=== PATIENT | female | born 1945 | race African-American/Black ===

== ENCOUNTER 2016-11-20 22:04 | Inpatient (IN) | payer MEDICARE, OTHER ==
[~2016-11-20] VITALS: Ht 162.6 cm; Wt 72.5 kg
[~2016-11-20 22:04] MED LIST: AMLO5TAB22 PO; COEN1CAP4; COZA100T PO; D31000CA PO; GLUCTAB OR; LANTINJ SQ; LISI-366 PO; LORTA5 PO; METO50TA PO; NOVOINJ3 SQ; NOVOLOGP2 SQ; OMEG100037; OMNI1SUS EACH EYE; ROSU10 PO; TRAV0.00 BOTH EYES; TRUS2SOL EACH EYE; [UNRECOGNIZED DRUG - OTHER] LEFT EYE
[2016-11-20 22:14] VITALS: BP 164/101; PULSE 101; RESP 18; TEMP 98.4; O2SAT 93
[2016-11-20] MEDS ORDERED: METF1000 PO (22:39)
[2016-11-20] MEDS ORDERED: LANTUS2P SQ (22:39)
[2016-11-20] MEDS ORDERED: AMLO5TAB2 PO (22:39)
[2016-11-20] MEDS ORDERED: ATOR20TA15 PO (22:39)
[2016-11-20] MEDS ORDERED: COQ1100C PO (22:39)
[2016-11-20] MEDS ORDERED: FISH500C PO (22:39)
[2016-11-20] MEDS ORDERED: FURO20TA PO (22:39)
[2016-11-20] MEDS ORDERED: LOSA100T PO (22:39)
[2016-11-20] MEDS ORDERED: METO50TA PO (22:39)
[2016-11-20] MEDS ORDERED: NOVOLOGP2 SQ (22:39)
[2016-11-20 22:48] VITALS: O2SAT 91
--- NOTE | 2016-11-20 22:58 | PD ---
HPI Chief Complaint: Respiratory Symptoms Time Seen by Provider: 22:40 Travel History International Travel<30 days: No Contact w/Intl Traveler<30days: No Traveled to known affect area: No History of Present Illness HPI Patient is a 71-year-old female with history of hypertension, diabetes, hyperlipidemia, COPD, colon cancer, presents to emergency room with complaints of 2 days of cough and congestion. Patient reports that for the past 2 days, she has had a productive white cough with increased wheezing. Patient reports that she is a one pack per day smoker, she does not use home O2. Patient reports that her cough and wheezing have progressed over the past 2 days, patient here for evaluation of this. Patient denies any fevers or chills, denies chest pain at this time. Denies any recent travels. NO sick contacts PFSH Past Medical History Arthritis: Yes (L HIP, RECENT) Asthma: No Autoimmune Disease: No Anxiety: No Depression: No Heart Rhythm Problems: No Cancer: No High Cholesterol: Yes Chemotherapy: No Chest Pain: No Congestive Heart Failure: No COPD: No Diabetes: Yes (2) Patient Takes Glucophage: Yes Diminished Hearing: No Gastrointestinal Disorders: Yes (-2012 PANCREATITIS; ADRENAL MASS) GERD: Yes Glaucoma: Yes Genitourinary: Yes (-2012 RENAL INSUFFICIENCY/// PT UNAWARE 01/20/15) Hiatal Hernia: No Hypertension: Yes Immune Disorder: No Musculoskeletal: Yes Neurologic: Yes Psychiatric: No Reproductive: No Respiratory: No Immunizations Current: Yes Migraines: Yes (SINUSHEADACES) Radiation Therapy: No Renal Failure: No Seizures: No Sickle Cell Disease: No Sleep Apnea: No Thyroid Disease: No Ulcer: No Tetanus Vaccination: < 5 Years Influenza Vaccination: Yes PNEUMOCCOCAL Vaccine (Year): 1 ?: Not Menopausal: Yes Past Surgical History Abdominal Surgery: Yes AICD: No Arteriovenous Shunt: No Cardiac Surgery: No Ear Surgery: No Endocrine Surgery: No Eye Surgery: Yes (CATARACT LEFT EYE) Genitourinary Surgery: No Gynecologic Surgery: Yes (HYSTERECTOMY PARTIAL ) Hysterectomy: Yes Insulin Pump: No Joint Replacement: No Oral Surgery: Yes (T&A CHILD) Pacemaker: No Thoracic Surgery: No Tonsillectomy: Yes Other Surgery: Yes Social History Alcohol Use: Yes Tobacco Use: Yes (1 PPD) Substance Use: No Allergies-Medications (Allergen,Severity, Reaction): Coded Allergies: Penicillin (Verified Allergy, Severe, SWELLING, 11/20/16) Reported Meds & Prescriptions Reported Meds & Active Scripts Active Reported Lantus Inj (Insulin Glargine) 1,000 Unit/10 Ml Vial 14 Units SQ HS Novolog Inj (Insulin Aspart) 1,000 Unit/10 Ml Vial 10 Units SQ BID Fish Oil ([place]-3 Fatty Acids) 500 Mg Cap 300 Mg PO DAILY Coq10 (Coenzyme Q10 (Ubidecarenone)) 100 Mg Cap 100 Mg PO DAILY Furosemide 20 Mg Tab 20 Mg PO DAILY Atorvastatin (Atorvastatin Calcium) 20 Mg Tab 20 Mg PO HS Amlodipine (Amlodipine Besylate) 5 Mg Tab 5 Mg PO DAILY Metoprolol Tartrate 50 Mg Tab 50 Mg PO DAILY Losartan (Losartan Potassium) 100 Mg Tab 100 Mg PO DAILY Metformin (Metformin HCl) 1,000 Mg Tab 1,000 Mg PO BIDPC With meals Review of Systems General / Constitutional: No: Fever Eyes: No: Visual changes HENT: No: Headaches Cardiovascular: No: Chest Pain or Discomfort Respiratory: Positive: Cough, Shortness of Breath Gastrointestinal: No: Abdominal Pain Genitourinary: No: Dysuria Musculoskeletal: No: Pain Skin: No Rash Neurologic: No: Weakness Psychiatric: No: Depression Endocrine: No: Polydipsia Hematologic/Lymphatic: No: Easy Bruising Physical Exam Narrative GENERAL: moderate distress SKIN: Focused skin assessment warm/dry. HEAD: Atraumatic. Normocephalic. EYES: Pupils equal and round. No scleral icterus. No injection or drainage. ENT: No nasal bleeding or discharge. Mucous membranes pink and moist. NECK: Trachea midline. No JVD. CARDIOVASCULAR: Tachycardic. No murmur appreciated. RESPIRATORY: No accessory muscle use. Diffuse wheezing throughout bilateral lungs, rhonchi to lower lung bases GASTROINTESTINAL: Abdomen soft, non-tender, nondistended. Hepatic and splenic margins not palpable. MUSCULOSKELETAL: No obvious deformities. No clubbing. No cyanosis. No edema. NEUROLOGICAL: Awake and alert. No obvious cranial nerve deficits. Motor grossly within normal limits. Normal speech. PSYCHIATRIC: Appropriate mood and affect; insight and judgment normal. Data Data Last Documented VS Vital Signs Date Time Temp Pulse Resp B/P Pulse Ox O2 Delivery O2 Flow Rate FiO2 11/21/16 01:50 92 20 144/82 93 11/20/16 23:44 Venturi Mask 50 11/20/16 23:40 6.00 11/20/16 22:14 98.4 Orders Complete Blood Count With Diff (11/20/16 22:40) Basic Metabolic Panel (Bmp) (11/20/16 22:40) Chest, Pa & Lat (11/20/16 22:40) Iv Access Insert/Monitor (11/20/16 22:40) Ecg Monitoring (11/20/16 22:40) Oxygen Administration (11/20/16 22:40) Oximetry (11/20/16 22:40) Electrocardiogram (11/20/16 22:40) Influenzae A/B Antigen (11/20/16 22:40) Arterial Blood Gas (Abg) (11/20/16 ) Methylprednisolone So Succ Inj (Solumedr (11/20/16 23:00) Albuterol-Ipratropium Neb (Duoneb Neb) (11/20/16 23:00) Sodium Chlorid 0.9% 500 Ml Inj (Ns 500 M (11/20/16 23:00) B-Type Natriuretic Peptide (11/20/16 23:18) Prothrombin Time / Inr (Pt) (11/20/16 23:18) Act Partial Throm Time (Ptt) (11/20/16 23:18) Blood Culture (11/20/16 23:22) Lactic Acid Sepsis Protocol (11/20/16 23:22) Aztreonam Inj (Azactam Inj) (11/20/16 23:33) Azithromycin Inj (Zithromax Inj) (11/20/16 23:33) Ckmb (Isoenzyme) Profile (11/20/16 22:50) Troponin I (11/20/16 22:50) Cta Thor Abd Aorta W Iv C W3d (11/21/16 00:01) Iohexol 350 Inj (Omnipaque 350 Inj) (11/21/16 01:10) Albuterol Neb (Albuterol Neb) (11/21/16 01:30) Labs Laboratory Tests Test 11/20/16 11/20/16 11/20/16 22:50 23:04 23:30 White Blood Count 15.6 TH/MM3 Red Blood Count 4.70 MIL/MM3 Hemoglobin 12.0 GM/DL Hematocrit 37.5 % Mean Corpuscular Volume 79.9 FL Mean Corpuscular Hemoglobin 25.6 PG Mean Corpuscular Hemoglobin 32.0 % Concent Red Cell Distribution Width 18.4 % Platelet Count 219 TH/MM3 Mean Platelet Volume 9.4 FL Neutrophils (%) (Auto) % Lymphocytes (%) (Auto) % Monocytes (%) (Auto) % Eosinophils (%) (Auto) % Basophils (%) (Auto) % Neutrophils # (Auto) TH/MM3 Lymphocytes # (Auto) TH/MM3 Monocytes # (Auto) TH/MM3 Eosinophils # (Auto) TH/MM3 Basophils # (Auto) TH/MM3 CBC Comment AUTO DIFF Differential Total Cells 100 Counted Neutrophils % (Manual) 84 % Lymphocytes % 9 % Monocytes % 6 % Eosinophils % 1 % Neutrophils # (Manual) 13.1 TH/MM3 Differential Comment FINAL DIFF MANUAL Platelet Estimate NORMAL Platelet Morphology Comment CLUMPED Prothrombin Time 11.1 SEC Prothromb Time International 1.0 RATIO Ratio Activated Partial 27.5 SEC Thromboplast Time B-Type Natriuretic Peptide 571 PG/ML Blood Gas Puncture Site RT RADIAL Blood Gas Patient Temperature 98.6 Blood Gas HCO3 24 mmol/L Blood Gas Base Excess -1.3 mmol/L Blood Gas Oxygen Saturation 75 % Arterial Blood pH 7.34 Arterial Blood Partial 45 mmHG Pressure CO2 Arterial Blood Partial 48 mmHG Pressure O2 Arterial Blood Oxygen Content 13.2 Vol % Arterial Blood 5.0 % Carboxyhemoglobin Arterial Blood Methemoglobin 1.4 % Blood Gas Hemoglobin 12.5 G/DL Blood Gas Inspired Oxygen 21 % Sodium Level 143 MEQ/L Potassium Level 4.0 MEQ/L Chloride Level 107 MEQ/L Carbon Dioxide Level 26.2 MEQ/L Anion Gap 10 MEQ/L Blood Urea Nitrogen 28 MG/DL Creatinine 1.20 MG/DL Estimat Glomerular Filtration 53 ML/MIN Rate Random Glucose 77 MG/DL Lactic Acid Level 1.6 mmol/L Calcium Level 9.0 MG/DL Total Creatine Kinase 98 U/L Troponin I 0.16 NG/ML MDM Medical Decision Making Medical Screen Exam Complete: Yes Emergency Medical Condition: Yes Interpretation(s) NSR at 80bpm, qt/qtc: 412/447, no acute st or t wave changes Vital Signs Date Time Temp Pulse Resp B/P Pulse Ox O2 Delivery O2 Flow Rate FiO2 11/20/16 22:48 91 Room Air 11/20/16 22:48 91 11/20/16 22:26 18 91 Room Air 11/20/16 22:14 98.4 101 18 164/101 93 Laboratory Tests Test 11/20/16 11/20/16 11/20/16 22:50 23:04 23:30 White Blood Count 15.6 TH/MM3 (4.0-11.0) Red Blood Count 4.70 MIL/MM3 (4.00-5.30) Hemoglobin 12.0 GM/DL (11.6-15.3) Hematocrit 37.5 % (35.0-46.0) Mean Corpuscular Volume 79.9 FL (80.0-100.0) Mean Corpuscular Hemoglobin 25.6 PG (27.0-34.0) Mean Corpuscular Hemoglobin 32.0 % Concent (32.0-36.0) Red Cell Distribution Width 18.4 % (11.6-17.2) Platelet Count 219 TH/MM3 (150-450) Mean Platelet Volume 9.4 FL (7.0-11.0) Neutrophils (%) (Auto) % (16.0-70.0) Lymphocytes (%) (Auto) % (9.0-44.0) Monocytes (%) (Auto) % (0.0-8.0) Eosinophils (%) (Auto) % (0.0-4.0) Basophils (%) (Auto) % (0.0-2.0) Neutrophils # (Auto) TH/MM3 (1.8-7.7) Lymphocytes # (Auto) TH/MM3 (1.0-4.8) Monocytes # (Auto) TH/MM3 (0-0.9) Eosinophils # (Auto) TH/MM3 (0-0.4) Basophils # (Auto) TH/MM3 (0-0.2) CBC Comment AUTO DIFF Differential Total Cells 100 Counted Neutrophils % (Manual) 84 % (16-70) Lymphocytes % 9 % (9-44) Monocytes % 6 % (0-8) Eosinophils % 1 % (0-4) Neutrophils # (Manual) 13.1 TH/MM3 (1.8-7.7) Differential Comment FINAL DIFF MANUAL Platelet Estimate NORMAL (NORMAL) Platelet Morphology Comment CLUMPED (NORMAL) Prothrombin Time 11.1 SEC (9.8-11.6) Prothromb Time International 1.0 RATIO Ratio Activated Partial 27.5 SEC Thromboplast Time (24.3-30.1) Blood Gas Puncture Site RT RADIAL Blood Gas Patient Temperature 98.6 Blood Gas HCO3 24 mmol/L (22-26) Blood Gas Base Excess -1.3 mmol/L (-2-2) Blood Gas Oxygen Saturation 75 % (90-100) Arterial Blood pH 7.34 (7.380-7.420) Arterial Blood Partial 45 mmHG (38-42) Pressure CO2 Arterial Blood Partial 48 mmHG Pressure O2 (61-120) Arterial Blood Oxygen Content 13.2 Vol % (12.0-20.0) Arterial Blood 5.0 % (0-4) Carboxyhemoglobin Arterial Blood Methemoglobin 1.4 % (0-2) Blood Gas Hemoglobin 12.5 G/DL (12.0-16.0) Blood Gas Inspired Oxygen 21 % Sodium Level 143 MEQ/L (136-145) Potassium Level 4.0 MEQ/L (3.5-5.1) Chloride Level 107 MEQ/L (98-107) Carbon Dioxide Level 26.2 MEQ/L (21.0-32.0) Anion Gap 10 MEQ/L (5-15) Blood Urea Nitrogen 28 MG/DL (7-18) Creatinine 1.20 MG/DL (0.50-1.00) Estimat Glomerular Filtration 53 ML/MIN (>89) Rate Random Glucose 77 MG/DL (74-106) Lactic Acid Level 1.6 mmol/L (0.4-2.0) Calcium Level 9.0 MG/DL (8.5-10.1) Total Creatine Kinase 98 U/L (26-192) Troponin I 0.16 NG/ML (0.02-0.05) Microbiology Date/Time Procedure Status Source Growth 11/20/16 22:50 Influenza Types A,B Antigen ([facility]) - Final Complete Nasal Washing NEGATIVE FOR FLU A AND B ANTIGEN.... 11/20/16 23:35 Aerobic Blood Culture Received Blood Peripheral Pending 11/20/16 23:35 Anaerobic Blood Culture Received Blood Peripheral Pending 11/20/16 23:38 Aerobic Blood Culture Received Blood Peripheral Pending 11/20/16 23:38 Anaerobic Blood Culture Received Blood Peripheral Pending Last Impressions Chest X-Ray 11/20/16 6010 Signed Impressions: Service Date/Time: Sunday, November 20, 2016 22:48 - CONCLUSION: 1. Prominent pulmonary arteries consistent with pulmonary arterial hypertension. 2. Abnormal density right upper lobe seen best on lateral view. 3. Prominent convexity along the ascending aorta, aneurysmal dilatation of the ascending aorta cannot be excluded. Contrasted CT chest recommended. David Valdez MD Differential Diagnosis COPD exacerbation, pneumonia, influenza, pneumothorax, viral syndrome Narrative Course Patient is a 71-year-old female who presents to emergency room with complaints of shortness of breath, cough and congestion for the past 2 days. Patient reports that she is a smoker, she does not use home O2, reports that for the past 2 days, she has been unable to catch her breath. On evaluation, patient is hypoxic with a pulse ox of 91% on room air. She does not use oxygen at home , she is coughing with wheezing as well as rhonchi at her lung bases. X-ray of chest ordered, labs ordered as well as influenza swab. Plan to give patient IV Solu-Medrol as well as nebulizer treatments to help open her airways up. We'll monitor patient on continuous pulse oximeter as well as academic records specialist. wbc: 15.6 Hemoglobin 12 Hematocrit 37.5 Platelets 219 ABG: PaO2 48 Oxygen sat 75% on room air PCO2 [address] patient on 50% Ventimask. There is concern for possible PE, x-ray of the chest shows that there is a prominent convexity along the ascending aorta, aneurysmal dilation of the ascending aorta cannot be excluded, radiologist recommends CT of the chest. This was reviewed with patient in detail, CT chest ordered. Last Impressions Chest X-Ray 11/20/16 2240 Signed Impressions: Service Date/Time: Sunday, November 20, 2016 22:48 - CONCLUSION: 1. Prominent pulmonary arteries consistent with pulmonary arterial hypertension. 2. Abnormal density right upper lobe seen best on lateral view. 3. Prominent convexity along the ascending aorta, aneurysmal dilatation of the ascending aorta cannot be excluded. Contrasted CT chest recommended. David Valdez MD case reviewed with dr short who accepts pt to service Critical Care Narrative Aggregate critical care time was 45 minutes. Time to perform other separately billable procedures was not included in the critical care time. My time did not include minutes spent treating any other patients simultaneously or on activities that did not directly contribute to the patient's treatment. The services I provided to this patient were to treat and/or prevent clinically significant deterioration that could result in: , decompensation, deterioration I provided critical care services requiring my management, as noted below: Chart data review, documentation time, medication orders and management, vital sign assessments/reviewing monitor data, ordering and reviewing lab tests, ordering and interpreting/reviewing x-rays and diagnostic studies, care of the patient and discussion of the patient with the admitting physicians. Diagnosis Primary Impression: Hypoxia Additional Impressions: Sepsis Qualified Code: A41.9 - Sepsis, due to unspecified organism Pneumonia Qualified Code: J18.9 - Pneumonia due to infectious organism, unspecified laterality, unspecified part of lung NSTEMI (non-ST elevated myocardial infarction) Admitting Information Admitting Physician Requests: Admit Orin Colorado DO Nov 20, 2016 22:58
[2016-11-20] MEDS ORDERED: SODIUM CHLORID 0.9% 500 ML INJ 500 ML IV ONE (23:00)
[2016-11-20] MEDS: RESP: ALBUTEROL 2.5 MG/IPRATROPIUM 0.5 MG NEB (SCH) INH ×2 (23:00→23:01)
[2016-11-20] MEDS ORDERED: methylPREDNISolone SOD SUCC 125 MG/2 ML VIAL IVP ONE (23:00)
[2016-11-20 23:04] LABS: HEMATOCRIT 37.5 % (35.0-46.0); MEAN CELL VOLUME 79.9 FL (80.0-100.0); MEAN CORPUSCULAR HEMOGLOBIN 25.6 PG (27.0-34.0); PLATELET COUNT 219 TH/MM3 (150-450); RED CELL DISTRIBUTION WIDTH 18.4 % (11.6-17.2); WHITE BLOOD COUNT 15.6 TH/MM3 (4.0-11.0)
[2016-11-20 23:11] LABS: HEMO FLAGS AUTO DIFF
[2016-11-20 23:14] LABS: BLOOD GAS BASE EXCESS -1.3 mmol/L (-2-2); BLOOD GAS HCO3 24 mmol/L (22-26); BLOOD GAS METHEMOGLOBIN 1.4 % (0-2); BLOOD GAS O2 HGB SATURATION 75 % (90-100); BLOOD GAS OXYGEN CONTENT 13.2 Vol % (12.0-20.0); BLOOD GAS PCO2 45 mmHG (38-42); BLOOD GAS PO2 48 mmHG (61-120); BLOOD GAS TOTAL HGB 12.5 G/DL (12.0-16.0); TEMP CORR TO 98.6
[2016-11-20 23:15] LABS: CRITICAL VALUE YES; DRAW SITE RT RADIAL; FIO2 21 %; NUMBER OF ARTERIAL PUNCTURES 1; STAT YES; ULNAR PULSE Y
--- NOTE | 2016-11-20 23:27 | RADHPO ---
EXAM DATE/TIME: 11/20/2016 22:48 [facility] COMPARISON: No previous studies available for comparison. INDICATIONS : Short of breath. MEDICAL HISTORY : Diabetes mellitus type II. SURGICAL HISTORY : None. ENCOUNTER: Initial ACUITY: 1 day PAIN SCORE: 0/10 LOCATION: Bilateral chest FINDINGS: PA and lateral views of the chest demonstrate prominence of the pulmonary arteries consistent with pu lmonary care hypertension. There is some prominent convexity along the ascending aorta. CT chest may be warranted. There also appears to be density in the right upper lobe best seen on lateral view. The cardiomediastinal contours are unremarkable. Osseous structures are intact. CONCLUSION: 1. Prominent pulmonary arteries consistent with pulmonary arterial hypertension. 2. Abnormal density right upper lobe seen best on lateral view. 3. Prominent convexity along the ascending aorta, aneurysmal dilatation of the ascending aorta cannot be excluded. Contrasted CT chest recommended. David Valdez MD on November 20, 2016 at 23:22 Board Certified Radiologist. This report was verified electronically.
[2016-11-20] MEDS ORDERED: AZITHROMYCIN INJ 500 MG in SODIUM CHLOR 0.9% 250 ML INJ 250 ML IV STA (23:33)
[2016-11-20] MEDS ORDERED: AZTREONAM INJ 2,000 MG in SODIUM CHLORIDE 0.9% INJ 100 ML IV STA (23:33)
[2016-11-20 23:34] LABS: EOSINOPHILS 1 % (0-4); NEUTROPHIL # MANUAL DIFF 13.1 TH/MM3 (1.8-7.7); POLYS (SEG NEUTROPHILS) 84 % (16-70); WBC DIFF SAMPLE 100
[2016-11-20 23:36] LABS: PLATELET ESTIMATE SMEAR NORMAL (NORMAL); PLATELET MORPHOLOGY CLUMPED (NORMAL); SCAN/DIFF FINAL DIFF MANUAL
[2016-11-20 23:44] VITALS: PULSE 84; RESP 20; O2SAT 96
[2016-11-20 23:54] LABS: APTT (PATIENT) 27.5 SEC (24.3-30.1); PROTHROMBIN TIME - PATIENT 11.1 SEC (9.8-11.6)
[2016-11-20 23:57] LABS: BICARBONATE 26.2 MEQ/L (21.0-32.0)
[2016-11-21] VITALS (15 sets, daily range): BP systolic 122–183; BP diastolic 75–96; PULSE 69–108; RESP 15–20; TEMP 96–99; O2SAT 92–100
[2016-11-21] MEDS ORDERED: IOHEXOL 350 MG/ML 10 ML VIAL (for RAD DIAG) IV ONE (01:10)
[2016-11-21] MEDS ORDERED: RESP: ALBUTEROL 2.5 MG/3 ML NEB (SCH) INH ONE (01:30)
--- NOTE | 2016-11-21 01:52 | RADHPO ---
EXAM DATE/TIME: 11/21/2016 00:24 [facility] COMPARISON: CHEST PA & LAT, November 20, 2016, 22:48. INDICATIONS : Evaluate for dissection. Prominent convexity along the ascending aorta, followup abnormal chest radio graph. IV CONTRAST: 100 cc Omnipaque 350 (iohexol) IV RADIATION DOSE: 12.57 CTDIvol (mGy) MEDICAL HISTORY : Renal insufficiency. Pancreatitis. Gastroesophageal reflux disease.Hypertension. Adrenal mass. Diabet es. SURGICAL HISTORY : Hysterectomy. ENCOUNTER: Initial ACUITY: 2 days PAIN SCALE: 3/10 LOCATION: chest TECHNIQUE: Volumetric scanning was performed using a multi-row detector CT scanner. The data was post processed with a variety of visualization algorithms including full volume maximum intensity projection, multi -planar sliding thin slab reformation, curved planar reformation, and surface rendering techniques. Using automated exposure control and adjustment of the mA and/or kV according to patient size, radiat ion dose was kept as low as reasonably achievable to obtain optimal diagnostic quality images. FINDINGS: LUNGS: There is no consolidation or pneumothorax. Patchy densities in the right middle lobe including a 9 mm nodule. Minimal densities in the posterior right lower lobe. No pleural fluid is present. MEDIASTINUM: No abnormally enlarged lymph nodes by CT criteria. No axillary or hilar abnormalities are identified. There is enlargement of the pulmonary trunk and pulmonary arteries. ABDOMEN: The liver and spleen are free of focal defects. The gallbladder and pancreas demonstrate no abnormali ty. The left adrenal gland is enlarged measuring 3.0 x 1.8 cm, unchanged. The kidneys demonstrate no evidence of solid renal mass or hydronephrosis. No free fluid or abdominal masses are identified. No para-aortic adenopathy is seen. PELVIS: No evidence of free fluid or pelvic mass. No abnormally enlarged inguinal or retroperitoneal lymph no driss are present. The bladder is unremarkable. THORACIC AORTA: The thoracic aortic root is normal with normal branching of the great vessels. There is no evidence of aneurysm or dissection. Mild atherosclerotic changes. ABDOMINAL AORTA: The aorta is normal in caliber without aneurysm or dissection. The renal arteries are patent bilater ally. The proximal celiac and superior mesenteric arteries are patent and normal in diameter. PELVIC VESSELS: The internal iliac and external iliac vessels are patent without aneurysm or stenosis. CONCLUSION: 1. No thoracic aortic aneurysm or dissection. 2. Patchy densities in the right middle lobe and right lower lobe could be infectious or inflammatory . 3. Mild emphysema without consolidation or mass. 4. Stable enlargement left adrenal gland. Reid Coto MD on November 21, 2016 at 1:44 Board Certified Radiologist. This report was verified electronically.
[2016-11-21] MEDS ORDERED: SODIUM CHLORIDE 0.9% FLUSH 10 ML FLUSH IV FLUSH PRN (02:30)
[2016-11-21] MEDS ORDERED: NALOXONE HCL 0.4 MG/ML AMP IV PRN (02:30)
[2016-11-21] MEDS ORDERED: RESP: ALBUTEROL 2.5 MG/IPRATROPIUM 0.5 MG NEB (PRN) NEB (02:45)
[2016-11-21] MEDS: RESP: ALBUTEROL 2.5 MG/IPRATROPIUM 0.5 MG NEB (SCH) NEB ×4 (03:26→21:47)
[2016-11-21] MEDS: SODIUM CHLORIDE 0.9% FLUSH 10 ML FLUSH IV FLUSH SCH ×2 (09:00→21:33)
[2016-11-21] MEDS ORDERED: FUROSEMIDE 20 MG TAB PO SCH (09:00)
[2016-11-21] MEDS: METOPROLOL TARTRATE 50 MG TAB PO SCH (09:58)
[2016-11-21] MEDS: LOSARTAN 50 MG TAB PO SCH (09:58)
[2016-11-21] MEDS: amLODIPine BESYLATE 5 MG TAB PO SCH (09:59)
[2016-11-21] MEDS: cefTRIAXone INJ 1,000 MG in SODIUM CHLORIDE 0.9% INJ 100 ML IV SCH ×2 (09:59→21:32)
[2016-11-21] MEDS ORDERED: VANCOMYCIN INJ 1,000 MG in SODIUM CHLOR 0.9% 250 ML INJ 250 ML IV ONE (11:30)
[2016-11-21] MEDS ORDERED: Vancomycin Consult Pharmacy 1 EA OTHER SCH (11:30)
--- NOTE | 2016-11-21 11:36 | EKG ---
Date Performed: 11/20/2016 Time Performed: 23:57:06 PTAGE: 71 years EKG: Sinus rhythm . Normal ECG PREVIOUS TRACING : 01/20/2015 07.01 DOCTOR: Carlos Santana Interpretating Date/Time 11/21/2016 11:34:13
[2016-11-21] MEDS ORDERED: FUROSEMIDE 20 MG/2 ML VIAL IV PUSH ONE (12:00)
--- NOTE | 2016-11-21 12:18 | HHI.HP ---
[facility] Jeff Santos MD Admission Diagnosis Hypoxia, sepsis Diagnoses: Travel History International Travel<30 Days: No Contact w/Intl Traveler <30 Da: No Traveled to Known Affected Are: No History of Present Illness Patient is a pleasant 71-year-old female with a history of hypertension, diabetes, hyperlipidemia, COPD, who presents with a 2 day history of shortness of breath, worse with exertion, as well as cough productive of white sputum. She denies any chest pain. Denies any fevers or chills. Denies any sore throat. She does report dry heaves for the past 2 days, but no vomiting. She does report the dry heaves are better at this time. She also reports bilateral lower extremity edema for the past 2 days. She says that this will happen occasionally. She has been hydrating aggressively over the past 2 days due to respiratory issues. He denies any past history of heart disease. Denies any recent medication changes. Review of Systems Performed and negative except for history of present illness and past medical history. Past Family Social History Past Medical History Hypertension Diabetes Hyperlipidemia COPD per chart review. Patient denies this. Colon cancer. Did not need chemotherapy or radiation. Pancreatitis Chronic kidney disease History of migraines Past Surgical History Hysterectomy Colonoscopy with polyp resection Cataract surgery Tonsillectomy Reported Medications Reported Meds & Active Scripts Active Reported Lantus Inj (Insulin Glargine) 1,000 Unit/10 Ml Vial 14 Units SQ HS Novolog Inj (Insulin Aspart) 1,000 Unit/10 Ml Vial 10 Units SQ BID Fish Oil (Clayton-3 Fatty Acids) 500 Mg Cap 300 Mg PO DAILY Coq10 (Coenzyme Q10 (Ubidecarenone)) 100 Mg Cap 100 Mg PO DAILY Furosemide 20 Mg Tab 20 Mg PO DAILY Atorvastatin (Atorvastatin Calcium) 20 Mg Tab 20 Mg PO HS Amlodipine (Amlodipine Besylate) 5 Mg Tab 5 Mg PO DAILY Metoprolol Tartrate 50 Mg Tab 50 Mg PO DAILY Losartan (Losartan Potassium) 100 Mg Tab 100 Mg PO DAILY Metformin (Metformin HCl) 1,000 Mg Tab 1,000 Mg PO BIDPC With meals Allergies: Coded Allergies: Penicillin (Verified Allergy, Severe, SWELLING, 11/20/16) Family History Mother from a stroke at age 97[address] from [place] at age 62. Social History Smokes one pack per day for the past 50 years. Takes alcohol about once per month. Denies illicit drugs. Physical Exam Vital Signs Vital Signs Date Time Temp Pulse Resp B/P Pulse Ox O2 Delivery O2 Flow Rate FiO2 11/21/16 09:33 94 Nasal Cannula 5.00 11/21/16 09:18 96.0 84 15 151/94 100 11/21/16 05:22 94 Nasal Cannula 5.00 11/21/16 05:15 94 Nasal Cannula 5.00 11/21/16 04:00 95 Venturi Mask 50 11/21/16 04:00 98.1 101 20 183/96 95 11/21/16 03:50 107 11/21/16 03:42 92 20 93 Venturi Mask 50 11/21/16 03:41 90 20 141/80 92 11/21/16 01:55 93 Venturi Mask 50 11/21/16 01:50 92 20 144/82 93 11/21/16 00:44 90 20 150/79 94 11/20/16 23:44 84 20 96 Venturi Mask 50 11/20/16 23:40 Venturi Mask 6.00 50 11/20/16 22:48 91 Room Air 11/20/16 22:48 91 11/20/16 22:26 18 91 Room Air 11/20/16 22:14 98.4 101 18 164/101 93 Physical Exam GENERAL: This is a well-nourished, well-developed patient, in no apparent distress. She is alert. Oriented 3, however has to look at board in room. SKIN: No rashes, ecchymoses or lesions. Cool and dry. HEAD: Atraumatic. Normocephalic. No temporal or scalp tenderness. EYES: Pupils equal round and reactive. Extraocular motions intact. No scleral icterus. No injection or drainage. ENT: Nose without bleeding, purulent drainage or septal hematoma. Throat without erythema, tonsillar hypertrophy or exudate. Uvula midline. Airway patent. NECK: Trachea midline. No lymphadenopathy. Supple, nontender, no meningeal signs. Positive JVD sitting up on edge of bed. CARDIOVASCULAR: Regular rate and rhythm without murmurs, gallops, or rubs. RESPIRATORY: Patient has crackles bilateral lower lobes. Decreased air movement on the right. GASTROINTESTINAL: Abdomen soft, non-tender, nondistended. No hepato-splenomegaly , or palpable masses. No guarding. MUSCULOSKELETAL: Extremities without clubbing, cyanosis. No joint tenderness, effusion. No calf tenderness. Negative Homans sign bilaterally. 1+ edema bilateral lower extremities. No erythema or broken skin. NEUROLOGICAL: Awake and alert. Cranial nerves II through XII intact. Motor and sensory grossly within normal limits. Five out of 5 muscle strength in all muscle groups. Normal speech. Laboratory Laboratory Tests Test 11/20/16 11/20/16 11/20/16 11/21/16 22:50 23:04 23:30 05:20 White Blood Count 15.6 Red Blood Count 4.70 Hemoglobin 12.0 Hematocrit 37.5 Mean Corpuscular Volume 79.9 Mean Corpuscular Hemoglobin 25.6 Mean Corpuscular Hemoglobin 32.0 Concent Red Cell Distribution Width 18.4 Platelet Count 219 Mean Platelet Volume 9.4 Neutrophils (%) (Auto) Lymphocytes (%) (Auto) Monocytes (%) (Auto) Eosinophils (%) (Auto) Basophils (%) (Auto) Neutrophils # (Auto) Lymphocytes # (Auto) Monocytes # (Auto) Eosinophils # (Auto) Basophils # (Auto) CBC Comment AUTO DIFF Differential Total Cells 100 Counted Neutrophils % (Manual) 84 Lymphocytes % 9 Monocytes % 6 Eosinophils % 1 Neutrophils # (Manual) 13.1 Differential Comment FINAL DIFF MANUAL Platelet Estimate NORMAL Platelet Morphology Comment CLUMPED Prothrombin Time 11.1 Prothromb Time International 1.0 Ratio Activated Partial 27.5 Thromboplast Time B-Type Natriuretic Peptide 571 Blood Gas Puncture Site RT RADIAL Blood Gas Patient Temperature 98.6 Blood Gas HCO3 24 Blood Gas Base Excess -1.3 Blood Gas Oxygen Saturation 75 Arterial Blood pH 7.34 Arterial Blood Partial 45 Pressure CO2 Arterial Blood Partial 48 Pressure O2 Arterial Blood Oxygen Content 13.2 Arterial Blood 5.0 Carboxyhemoglobin Arterial Blood Methemoglobin 1.4 Blood Gas Hemoglobin 12.5 Blood Gas Inspired Oxygen 21 Sodium Level 143 Potassium Level 4.0 Chloride Level 107 Carbon Dioxide Level 26.2 Anion Gap 10 Blood Urea Nitrogen 28 Creatinine 1.20 Estimat Glomerular Filtration 53 Rate Random Glucose 77 Lactic Acid Level 1.6 Calcium Level 9.0 Total Creatine Kinase 98 90 Troponin I 0.16 0.19 Date/Time Procedure Status Source Growth 11/20/16 23:38 Aerobic Blood Culture - Preliminary Resulted Blood Peripheral NO GROWTH IN 1 DAY 11/20/16 23:38 Anaerobic Blood Culture - Preliminary Resulted Blood Peripheral NO GROWTH IN 1 DAY 11/20/16 22:50 Influenza Types A,B Antigen (JOURDAN) - Final Complete Nasal Washing NEGATIVE FOR FLU A AND B ANTIGEN.... Result Diagram: 11/20/16 2250 11/20/16 2330 Imaging Last Impressions Aorta CTA 11/21/16 0001 Signed Impressions: Service Date/Time: Monday, November 21, 2016 00:24 - CONCLUSION: 1. No thoracic aortic aneurysm or dissection. 2. Patchy densities in the right middle lobe and right lower lobe could be infectious or inflammatory. 3. Mild emphysema without consolidation or mass. 4. Stable enlargement left adrenal gland. Reid Coto MD Chest X-Ray 11/20/160 Signed Impressions: Service Date/Time: Sunday, November 20, 2016 22:48 - CONCLUSION: 1. Prominent pulmonary arteries consistent with pulmonary arterial hypertension. 2. Abnormal density right upper lobe seen best on lateral view. 3. Prominent convexity along the ascending aorta, aneurysmal dilatation of the ascending aorta cannot be excluded. Contrasted CT chest recommended. David Valdez MD Assessment and Plan Assessment and Plan //Severe Sepsis. -Leukocytosis 15.6. Sinus tachycardia. Hypoxia. Pneumonia. -Lactate 1.6. -Possibly secondary to aspiration pneumonia. Chest x-ray, CT angiogram negative for PE. This was done due to recent admission in September. Right middle lobe, right lower lobe pneumonia. Recent dry heaves. -Received aztreonam and ceftriaxone in the ER. -Start on aztreonam, metronidazole, vancomycin. //Hypoxemic respiratory failure. -ABG on admission reviewed. -Likely secondary to pneumonia as above, combined with likely CHF as below. -Oxygen. Treatment For pneumonia. Duo nebs. Diuresis for CHF. -Continue to monitor respiratory status closely. //Leukocytosis. Elevated BNP 571 on admission. Crackles bilaterally. JVD. //Suspected CHF exacerbation. -New diagnosis of CHF Elevated BNP 570. Crackles bilaterally, JVD, bilateral lower extremity edema. -Likely caused by aggressive hydration on the patient's part due to respiratory illness. -Diuresis. Strict intake and output. Echocardiogram pending. Cardiology consultation. //Troponin elevation -0.16, trending up to 0.19. Patient with no active chest pain. EKG with some sinus arrhythmia, however no ST elevation. CT angiogram without dissection. -Patient's nausea could be indication of atypical [place] in diabetic patient. -Could be secondary to demand ischemia in the setting of sepsis.. Continued to monitor troponins. -Consult cardiology. Echocardiogram pending. //Diabetes. Chronic. Switch to diabetic diet. Insulin sliding scale. Continue to monitor. //Hypertension. Blood pressure elevated. Continue home blood pressure medications. Diuresis. //Chronic kidney disease, stage III. Creatinine better than baseline. Continue to monitor. //Tobacco abuse. Cessation counseling provided. Strongly recommend discontinuation. Prophylaxis. Patient is ambulatory. Discussed Condition With Patient, nurse. Physician Certification 2 Midnight Certification Type: Admission for Inpatient Services Order for Inpatient Services The services are ordered in accordance with Medicare regulations or non- Medicare payer requirements, as applicable. In the case of services not specified as inpatient-only, they are appropriately provided as inpatient services in accordance with the 2-midnight benchmark. Estimated LOS (days): 3 days is the estimated time the patient will need to remain in the hospital, assuming treatment plan goals are met and no additional complications. Post-Hospital Plan: Not yet determined Otis Cornejo MD Nov 21, 2016 12:18
[2016-11-21] MEDS: AZTREONAM INJ 2,000 MG in SODIUM CHLORIDE 0.9% INJ 100 ML IV SCH ×2 (12:40→23:53)
[2016-11-21] MEDS: metroNIDAZOLE 500 MG INJ 100 ML IV SCH ×2 (12:42→20:16)
--- NOTE | 2016-11-21 17:52 | EC ---
Study Study Date:11/21/2016 STUDY CONCLUSIONS SUMMARY - Left ventricle: The cavity size was normal. Wall thickness was normal. Systolic function was normal. The estimated ejection fraction was in the range of 60% to 65%. Wall motion was normal; there were no regional wall motion abnormalities. - Mitral valve: Moderately calcified annulus. - Tricuspid valve: Mild-moderate regurgitation. - Pulmonary arteries: Systolic pressure was moderately increased. PA peak pressure: 59mm Hg (S). If LV function is below 40, please consider prescribing an ACEI or ARB or document rationale for non-use. PROCEDURE DATA STUDY STATUS: Elective. Procedure: Transthoracic echocardiography. Image quality was good. Scanning was performed from the parasternal, apical, and subcostal acoustic windows. Study completion: The patient tolerated the procedure well. Transthoracic echocardiography. M-mode, complete 2D, complete spectral Doppler, and color Doppler. Patient status: Inpatient. CARDIAC ANATOMY LEFT VENTRICLE: The cavity size was normal. Wall thickness was normal. Systolic function was normal. The estimated ejection fraction was in the range of 60% to 65%. Wall motion was normal; there were no regional wall motion abnormalities. AORTIC VALVE: Trileaflet; mildly thickened, mildly calcified leaflets. Doppler: Transvalvular velocity was within the normal range. There was no stenosis. No regurgitation. Mean gradient: 11mm Hg (S). Peak gradient: 24mm Hg (S). AORTA: Aortic root: The aortic root was normal in size. MITRAL VALVE: Moderately calcified annulus. Doppler: Transvalvular velocity was within the normal range. There was no evidence for stenosis. Trace regurgitation. Peak gradient: 4mm Hg (D). LEFT ATRIUM: The atrium was at the upper limits of normal in size. RIGHT VENTRICLE: The cavity size was normal. Wall thickness was normal. PULMONIC VALVE: Doppler: Transvalvular velocity was within the normal range. There was no evidence for stenosis. No regurgitation. TRICUSPID VALVE: Structurally normal valve. Doppler: Transvalvular velocity was within the normal range. Mild-moderate regurgitation. PULMONARY ARTERY: The main pulmonary artery was normal-sized. Systolic pressure was moderately increased. RIGHT ATRIUM: The atrium was normal in size. PERICARDIUM: There was no pericardial effusion. SYSTEMIC VEINS: Inferior vena cava: The vessel was normal in size. BASIC MEASUREMENTS ADULT Normal Left ventricle LV internal dimension, ED, chordal level, *38.8 mm 43-52 PLAX LV internal dimension, ES, chordal level, 28 mm 23-38 PLAX Fractional shortening, chordal level, PLAX *28 % >29 LV posterior wall thickness, ED 7.51 mm IVS/LVPW ratio, ED *1.4 <1.3 Ventricular septum Septal thickness, ED 10.5 mm Aortic valve Leaflet separation *13 mm 15-26 Right ventricle RV internal dimension, ED, PLAX 25.1 mm 19-38 BASIC MEASUREMENTS ADULT Normal Aortic valve Leaflet separation *13 mm 15-26 Aorta Root diameter, ED 24 mm 20-37 Left atrium Anterior-posterior dimension, ES 39 mm 19-40 LA/aortic root ratio 1.63 DOPPLER MEASUREMENTS ADULT Normal Main pulmonary artery Pressure, S *59 mm Hg =30 Aortic valve Peak velocity, S 246 cm/s Mean velocity, S 154 cm/s VTI, S 49 cm Mean gradient, S 11 mm Hg Peak gradient, S 24 mm Hg Mitral valve Peak E-wave velocity 101 cm/s Peak A-wave velocity 126 cm/s Peak gradient, D 4 mm Hg Peak E/A ratio 0.8 Tricuspid valve Regurgitant peak velocity 351 cm/s Peak RV-RA gradient, S 49 mm Hg Maximal regurgitant velocity 351 cm/s Systemic veins Estimated CVP 10 mm Hg Right ventricle RV pressure, S *59 mm Hg <30 LEGEND: Mean values are shown as u=mean value. Asterisk (*) ludwig values outside specified normal range. Prepared and signed by Richard Goodman [id number]
[2016-11-21] MEDS: FUROSEMIDE 20 MG/2 ML VIAL IV PUSH SCH (18:13)
[2016-11-21] MEDS: INSULIN DETEMIR 100 UNITS/ML VIAL SQ SCH (21:33)
[2016-11-21] MEDS: predniSONE 20 MG TAB PO SCH (21:33)
[2016-11-21] MEDS: ATORVASTATIN 20 MG TAB PO SCH (21:33)
[2016-11-22] VITALS (8 sets, daily range): BP systolic 131–164; BP diastolic 71–90; PULSE 60–81; RESP 18–20; TEMP 97–98; O2SAT 96–100
[2016-11-22] MEDS: RESP: ALBUTEROL 2.5 MG/IPRATROPIUM 0.5 MG NEB (SCH) NEB ×4 (03:58→20:24)
[2016-11-22] MEDS: metroNIDAZOLE 500 MG INJ 100 ML IV SCH ×3 (05:02→22:34)
[2016-11-22 06:28] LABS: HEMATOCRIT 32.5 % (35.0-46.0); MEAN CELL VOLUME 81.2 FL (80.0-100.0); MEAN CORPUSCULAR HEMOGLOBIN 25.5 PG (27.0-34.0); MEAN CORPUSCULAR HGB CONC 31.4 % (32.0-36.0); PLATELET COUNT 203 TH/MM3 (150-450); RED CELL DISTRIBUTION WIDTH 18.1 % (11.6-17.2); WHITE BLOOD COUNT 10.7 TH/MM3 (4.0-11.0)
[2016-11-22 06:43] LABS: POTASSIUM 4.5 MEQ/L (3.5-5.1)
[2016-11-22 06:47] LABS: BICARBONATE 25.8 MEQ/L (21.0-32.0)
[2016-11-22 07:15] LABS: HEMO FLAGS AUTO DIFF
[2016-11-22 07:35] LABS: NEUTROPHIL # MANUAL DIFF 9.6 TH/MM3 (1.8-7.7); OVALOCYTES 1+ (NORMAL); POLYS (SEG NEUTROPHILS) 90 % (16-70); TARGET CELLS 1+ (NORMAL); WBC DIFF SAMPLE 100
[2016-11-22 07:36] LABS: KERATOCYTES OCC (NORMAL); PLATELET ESTIMATE SMEAR NORMAL (NORMAL); PLATELET MORPHOLOGY NORMAL (NORMAL); SCAN/DIFF FINAL DIFF MANUAL
--- NOTE | 2016-11-22 08:38 | MB ---
cc: MARCO ANTONIO IRIZARRY MD DATE OF CONSULTATION: 11/22/2016 REASON FOR CONSULTATION Elevated cardiac enzymes and possible heart failure. HISTORY OF PRESENT ILLNESS Ms. Sinclair is a 71-year-old female with a history of hypertension, hyperlipidemia, diabetes and COPD. She presented to the emergency room with an acute on chronic exacerbation of shortness of breath. The patient reports that she has had difficulty breathing over the last year. Over the last two days she had progressive shortness of breath and a white productive cough. She was admitted with hypoxemia and sepsis. Her troponin was elevated and cardiology was subsequently consulted. The patient denies any prior cardiac history and specifically denies any chest pain. PAST MEDICAL HISTORY 1. Hypertension. 2. Hyperlipidemia. 3. Diabetes. 4. COPD - though the patient denies this. 5. Colon cancer. 6. Pancreatitis. 7. CKD. 8. Migraines. MEDICATIONS Outpatient medications include: 1. Metformin. 2. Losartan. 3. Metoprolol. 4. Amlodipine. 5. Atorvastatin. 6. Lasix. 7. CoQ10. 8. Fish oil. 9. Lantus insulin. ALLERGIES PENICILLIN. FAMILY HISTORY Positive for late CAD. SOCIAL HISTORY The patient does smoke one pack a day and has over [id number] smoking history. REVIEW OF SYSTEMS Except as mentioned in the HPI all 12 systems are negative. PHYSICAL EXAMINATION VITAL SIGNS: 97.5, 66, 19, 137/71. GENERAL: In general she is a well-appearing elderly female who is in no apparent distress. NECK: Her neck is free from JVD. LUNGS: The lungs have coarse wheezing throughout. CARDIOVASCULAR: On cardiovascular examination the heart tones any barely audible for all the wheezing. I could not appreciate any murmurs, rubs or gallops. ABDOMEN: The abdomen is soft. EXTREMITIES: The extremities are free from edema. ECHOCARDIOGRAM Echocardiogram shows an EF of 60-65%. There is mild to moderate tricuspid regurgitation with a mean PA pressure of 59 mmHg. There is aortic sclerosis versus mild stenosis with a mean gradient of 11 mmHg. LABORATORY Lab values are significant for: Hemoglobin 10.2. Creatinine 1.5. Serial troponins 0.16/0.19/0.17. Blood gas on arrival showed a PO2 of 48. BNP 571. Albumin 3.2. IMPRESSIONS/RECOMMENDATIONS 1. CHF: The patient may have some mild CHF which would be a right-sided heart failure likely secondary to her pulmonary hypertension as evidenced by the permanent pulmonary arteries on chest x-ray and the marked elevation in her echo RVSP. This could be nonspecific in the setting of her pneumonia. In any case the patient has had resolution of her edema and her creatinine is trending up. Thus at this point I would place her back on her outpatient dosing of p.o. Lasix. Beta blockers should be used in caution with her COPD. Thus at this point I would continue her on the metoprolol with unchanged dose. The patient is not a revascularization candidate at this time secondary to her severe pneumonia. This could be worked up as an outpatient. I did discuss this with the patient and asked her to follow-up with me once she is recovered from her pneumonia. 2. Elevated troponin: is felt secondary to hypoxia and CKD-secondary MN 3. Pneumonia/COPD: This is being managed by the primary team. 4. Edema: This is likely multifactorial with her high PA pressures, low albumin, older age and diabetes. 5. I will be available on a p.r.n. basis and would be happy to see her should any further cardiac questions arise. Marco Antonio Irizarry M.D. PRETTY /8:04 AM /8:16 AM MTDD
[2016-11-22] MEDS: amLODIPine BESYLATE 5 MG TAB PO SCH (08:59)
[2016-11-22] MEDS: METOPROLOL TARTRATE 50 MG TAB PO SCH (08:59)
[2016-11-22] MEDS: FUROSEMIDE 20 MG TAB PO SCH (08:59)
[2016-11-22] MEDS: predniSONE 20 MG TAB PO SCH (08:59)
[2016-11-22] MEDS: LOSARTAN 50 MG TAB PO SCH (08:59)
[2016-11-22] MEDS: SODIUM CHLORIDE 0.9% FLUSH 10 ML FLUSH IV FLUSH SCH ×2 (09:00→21:00)
[2016-11-22] MEDS: cefTRIAXone INJ 1,000 MG in SODIUM CHLORIDE 0.9% INJ 100 ML IV SCH (09:00)
[2016-11-22] MEDS: FUROSEMIDE 20 MG/2 ML VIAL IV PUSH SCH (09:00)
[2016-11-22] MEDS ORDERED: VANCOMYCIN 1,000 MG/NS 250 ML IV SCH ×2 (11:00)
--- NOTE | 2016-11-22 12:09 | EKG ---
Date Performed: 11/21/2016 Time Performed: 10:56:44 PTAGE: 71 years EKG: Sinus arrhythmia. Normal ECG PREVIOUS TRACING : 11/21/2016 05.09 DOCTOR: Yuniel William Interpretating Date/Time 11/22/2016 12:03:08
--- NOTE | 2016-11-22 12:17 | EKG ---
Date Performed: 11/21/2016 Time Performed: 05:09:40 PTAGE: 71 years EKG: Sinus tachycardia with sinus arrhythmia Short SD interval Borderline ECG PREVIOUS TRACING : 11/20/2016 23.57 DOCTOR: Yuniel William Interpretating Date/Time 11/22/2016 12:16:29
[2016-11-22] MEDS: AZTREONAM INJ 1,000 MG in SODIUM CHLORIDE 0.9% INJ 100 ML IV SCH ×2 (13:03→22:39)
[2016-11-22 13:48] LABS: BICARBONATE 23.5 MEQ/L (21.0-32.0)
--- NOTE | 2016-11-22 13:55 | HHI.PR ---
Subjective Remarks Patient seen this morning. Says she feels great. Denies any chest pain or shortness of breath. Walking around without difficulty. Patient does not have oxygen at home. Oxygen evaluation pending. Objective Vital Signs Date Time Temp Pulse Resp B/P Pulse Ox O2 Delivery O2 Flow Rate FiO2 11/22/16 12:00 97.5 81 20 134/88 96 11/22/16 09:30 99 Nasal Cannula 4.00 11/22/16 08:00 98.0 74 20 164/90 98 11/22/16 04:00 97.5 66 19 137/71 100 11/22/16 00:15 98 Nasal Cannula 4.00 11/22/16 00:00 97.4 71 18 144/82 98 11/21/16 21:47 98 Nasal Cannula 4.00 11/21/16 21:00 69 11/21/16 20:30 100 Nasal Cannula 4.00 11/21/16 20:00 96.4 95 20 122/90 100 11/21/16 17:34 99.0 108 17 151/85 98 11/21/16 15:28 95 Nasal Cannula 4.00 I/O 11/21/16 11/21/16 11/21/16 11/22/16 11/22/16 11/22/16 07:00 15:00 23:00 07:00 15:00 23:00 Intake Total 360 ml 920 ml 220 ml Output Total 300 ml 800 ml Balance 60 ml 120 ml 220 ml Intake Oral 360 ml 920 ml 120 ml IV Total 100 ml Output Urine Total 300 ml 800 ml # Voids 3 # Bowel Movements 0 0 0 Result Diagram: 11/22/16 0505 11/22/16 1319 Imaging Last Impressions Aorta CTA 11/21/16 0001 Signed Impressions: Service Date/Time: Monday, November 21, 2016 00:24 - CONCLUSION: 1. No thoracic aortic aneurysm or dissection. 2. Patchy densities in the right middle lobe and right lower lobe could be infectious or inflammatory. 3. Mild emphysema without consolidation or mass. 4. Stable enlargement left adrenal gland. Reid Coto MD Chest X-Ray 11/20/16 1230 Signed Impressions: Service Date/Time: Sunday, November 20, 2016 22:48 - CONCLUSION: 1. Prominent pulmonary arteries consistent with pulmonary arterial hypertension. 2. Abnormal density right upper lobe seen best on lateral view. 3. Prominent convexity along the ascending aorta, aneurysmal dilatation of the ascending aorta cannot be excluded. Contrasted CT chest recommended. David Valdez MD Objective Remarks GENERAL: Patient sitting up in chair. Appears comfortable. Alert and oriented 3. SKIN: Warm and dry. HEAD: Normocephalic. EYES: No scleral icterus. No injection or drainage. NECK: Supple, trachea midline. No JVD. CARDIOVASCULAR: Regular rate and rhythm without murmurs, gallops, or rubs. RESPIRATORY: Breath sounds equal bilaterally. No accessory muscle use. Crackles in bilateral bases much improved today. GASTROINTESTINAL: Abdomen soft, non-tender, nondistended. MUSCULOSKELETAL: No cyanosis. Bilateral lower extremity edema improved today. BACK: Nontender without obvious deformity. No CVA tenderness. A/P Assessment and Plan //Severe Sepsis. -Leukocytosis 15.6. Sinus tachycardia. Hypoxia. Pneumonia. -Lactate 1.6. -Possibly secondary to aspiration pneumonia. Chest x-ray, CT angiogram negative for PE. This was done due to recent admission in September. Right middle lobe, right lower lobe pneumonia. Recent dry heaves. -Received aztreonam and ceftriaxone in the ER. -Started on on aztreonam, metronidazole, vancomycin. = Much improved. Can discharge on by mouth Levaquin. //Hypoxemic respiratory failure. -ABG on admission reviewed. -Likely secondary to pneumonia as above, combined with likely CHF as below. -Oxygen. Treatment For pneumonia. Duo nebs. Diuresis for CHF. -Improved. Oxygen evaluation pending. Can likely discharge in the next 1-2 days with steroid taper, antibiotics. //Leukocytosis. Elevated BNP 571 on admission. Crackles bilaterally. JVD. //Suspected CHF exacerbation. -New diagnosis of CHF Elevated BNP 570. Crackles bilaterally, JVD, bilateral lower extremity edema. -Likely caused by aggressive hydration on the patient's part due to respiratory illness. -Diuresis. Strict intake and output. Echocardiogram pending. Cardiology consultation. = Much improved with diuresis. Echocardiogram reviewed. 60-65% ejection fraction. PA peak pressure 59. Appreciate cardiology assistance. Discontinue IV diuresis as creatinine has increased. Continue by mouth diuretic. //Elevated creatinine. 1.5. Was 1.2 admission. Likely secondary to progressive diuresis. Hold on Lasix. Follow-up creatinine. //Troponin elevation -0.16, trending up to 0.19. Patient with no active chest pain. EKG with some sinus arrhythmia, however no ST elevation. CT angiogram without dissection. -Patient's nausea could be indication of atypical [place] in diabetic patient. -Could be secondary to demand ischemia in the setting of sepsis.. Continued to monitor troponins. -Echocardiogram reviewed. Normal ejection fraction. Likely pulmonary hypertension. Continued diuretic and fluid restrictions as outpatient. Follow- up with cardiology. //Diabetes. Chronic. Continue diabetic diet. Insulin sliding scale. Continue to monitor. //Hypertension. Blood pressure acceptable. Continue home blood pressure medications. Diuresis. //Chronic kidney disease, stage III. Creatinine better than baseline. Continue to monitor. //Tobacco abuse. Cessation counseling provided. Strongly recommend discontinuation. Prophylaxis. Patient is ambulatory. Discharge Planning Possible discharge home today or tomorrow if creatinine remains stable or improves. Home oxygen evaluation pending. Otis Cornejo MD Nov 22, 2016 13:55
[2016-11-22] MEDS ORDERED: OXYGENTANK NAS.CANULA (13:57)
--- NOTE | 2016-11-22 13:59 | HHI.FF ---
Face to Face Verification Diagnosis: (1) Hypoxia (2) NSTEMI (non-ST elevated myocardial infarction) (3) Pneumonia (4) Sepsis (5) Colon cancer Physical Therapy Order: Evaluate and Treat Home Health Nursing Order: Oxygen administration education Nursing assessment with vital signs I have seen patient Marilee Sinclair on 11/22/16. My clinical findings support the need for the requested home health care services because: Deconditioned w/ increased weakness I certify that my clinical findings support that this patient is homebound because: Unsafe to leave home unassisted Otis Cornejo MD Nov 22, 2016 13:59
[2016-11-22] MEDS ORDERED: INSULIN ASPART 1,000 UNITS/10 ML VIAL SQ ONE ×2 (14:15→18:30)
[2016-11-22] MEDS ORDERED: DEXTROSE 50% IN WATER 50 ML VIAL(D50) IV PUSH PRN (14:15)
[2016-11-22] MEDS ORDERED: GLUCAGON 1 MG/ML VIAL OTHER PRN (14:15)
[2016-11-22] MEDS ORDERED: INSULIN NovoLIN REGULAR SUPPLEMENTAL SCALE SQ SCH (16:00)
[2016-11-22] MEDS ORDERED: SODIUM CHLOR 0.9% 250 ML INJ 250 ML IV ONE (18:30)
[2016-11-22] MEDS ORDERED: predniSONE 10 MG TAB PO SCH (21:00)
[2016-11-22] MEDS: ATORVASTATIN 20 MG TAB PO SCH (22:33)
[2016-11-22] MEDS: INSULIN DETEMIR 100 UNITS/ML VIAL SQ SCH (22:33)
[2016-11-23] VITALS (11 sets, daily range): BP systolic 114–175; BP diastolic 79–102; PULSE 58–150; RESP 18–20; TEMP 87.2–97.4; O2SAT 94–100
[2016-11-23] MEDS: RESP: ALBUTEROL 2.5 MG/IPRATROPIUM 0.5 MG NEB (SCH) NEB (04:27)
[2016-11-23 06:13] LABS: HEMATOCRIT 33.8 % (35.0-46.0); MEAN CELL VOLUME 81.4 FL (80.0-100.0); MEAN CORPUSCULAR HEMOGLOBIN 25.9 PG (27.0-34.0); MEAN CORPUSCULAR HGB CONC 31.9 % (32.0-36.0); PLATELET COUNT 213 TH/MM3 (150-450); RED BLOOD COUNT 4.15 MIL/MM3 (4.00-5.30); WHITE BLOOD COUNT 11.2 TH/MM3 (4.0-11.0)
[2016-11-23 06:31] LABS: HEMO FLAGS AUTO DIFF
[2016-11-23 06:40] LABS: BICARBONATE 24.7 MEQ/L (21.0-32.0); MAGNESIUM 2.1 MG/DL (1.5-2.5); POTASSIUM 3.8 MEQ/L (3.5-5.1)
[2016-11-23] MEDS: metroNIDAZOLE 500 MG INJ 100 ML IV SCH ×3 (06:53→23:33)
[2016-11-23] MEDS: METOPROLOL TARTRATE 50 MG TAB PO SCH (06:54)
[2016-11-23 06:58] LABS: NEUTROPHIL # MANUAL DIFF 9.6 TH/MM3 (1.8-7.7); POLYS (SEG NEUTROPHILS) 86 % (16-70); WBC DIFF SAMPLE 100
[2016-11-23 06:59] LABS: BURR CELLS 1+ (NORMAL); KERATOCYTES OCC (NORMAL); OVALOCYTES 1+ (NORMAL); PLATELET ESTIMATE SMEAR NORMAL (NORMAL); PLATELET MORPHOLOGY NORMAL (NORMAL); ROULEAUX PRESENT (NORMAL); SCAN/DIFF FINAL DIFF MANUAL; TARGET CELLS 1+ (NORMAL)
[2016-11-23] MEDS: INSULIN NovoLIN REGULAR SUPPLEMENTAL SCALE SQ SCH ×4 (07:04→23:31)
[2016-11-23] MEDS ORDERED: DILTIAZEM HCL 25 MG/5 ML VIAL IVP ONE (07:30)
[2016-11-23] MEDS ORDERED: DILTIAZEM HCL 25 MG/5 ML VIAL IV ONE ×2 (07:30→08:45)
[2016-11-23] MEDS ORDERED: DILTIAZEM INJ 125 MG in SODIUM CHLORIDE 0.9% INJ 100 ML IV PRN (08:00)
[2016-11-23] MEDS: FUROSEMIDE 20 MG TAB PO SCH (08:07)
[2016-11-23] MEDS: SODIUM CHLORIDE 0.9% FLUSH 10 ML FLUSH IV FLUSH SCH ×2 (08:07→23:32)
[2016-11-23] MEDS: APIXABAN 5 MG TABLET PO SCH ×2 (08:07→23:28)
[2016-11-23] MEDS: LOSARTAN 50 MG TAB PO SCH (08:07)
[2016-11-23] MEDS: amLODIPine BESYLATE 5 MG TAB PO SCH (08:07)
[2016-11-23] MEDS: AZTREONAM INJ 1,000 MG in SODIUM CHLORIDE 0.9% INJ 100 ML IV SCH (11:50)
--- NOTE | 2016-11-23 13:08 | PD.CARD.PN ---
Subjective Subjective Remarks PT aware of elevated HR Objective Medications Current Medications Medications (Trade) Dose Ordered Sig/Jessica Route Start Time Stop Time Status Last Admin (NS Flush) 2 ml UNSCH PRN IV FLUSH 11/21/16 02:30 (NS Flush) 2 ml BID IV FLUSH 11/21/16 09:00 11/23/16 08:07 (Narcan Inj) 0.4 mg UNSCH PRN IV 11/21/16 02:30 (Norvasc) 5 mg DAILY PO 11/21/16 09:00 11/23/16 08:07 (Lipitor) 20 mg HS PO 11/21/16 21:00 11/22/16 22:33 (Levemir Inj) 14 units HS SQ 11/21/16 21:00 11/22/16 22:33 (Cozaar) 100 mg DAILY PO 11/21/16 09:00 11/23/16 08:07 Metoprolol Tartrate 50 mg 50 mg DAILY PO 11/21/16 09:00 11/23/16 06:54 Metronidazole 100 ml @ 100 mls/hr Q8H IV 11/21/16 13:00 11/23/16 06:53 (Vancomycin Consult Pharmacy) 0 ml @ 0 mls/hr UNSCH OTHER 11/21/16 11:30 Miscellaneous Information SPECIFIC LAB TO BE DRAWN:VANCO TROUGH DATE TO... ONCE ONCE .XX 11/24/16 10:45 11/24/16 10:46 (Azactam Inj/NS Inj) 100 ml @ 200 mls/hr Q12H IV 11/22/16 12:00 11/23/16 11:50 (Lasix) 20 mg DAILY PO 11/22/16 09:00 11/23/16 08:07 (D50w (Vial) Inj) 25 ml UNSCH PRN IV PUSH 11/22/16 14:15 (Glucagon Inj) 1 mg UNSCH PRN OTHER 11/22/16 14:15 Apixaban 5 mg 5 mg BID PO 11/23/16 09:00 11/23/16 08:07 Diltiazem HCl 125 mg/Sodium Chloride 125 ml @ 0 mls/hr TITRATE PRN IV 11/23/16 08:00 11/23/16 11:18 (Vancomycin Inj/ NS 250 ml Inj) 250 ml @ 250 mls/hr Q18H IV 11/24/16 06:00 Miscellaneous Information SPECIFIC LAB TO BE DRAWN:VANCO TROUGH DATE TO... ONCE ONCE .XX 11/26/16 11:45 11/26/16 11:46 Vital Signs / I&O Vital Signs Date Time Temp Pulse Resp B/P Pulse Ox O2 Delivery O2 Flow Rate FiO2 11/23/16 12:00 87.2 104 20 114/79 94 11/23/16 08:00 96.7 117 20 147/102 95 11/23/16 05:43 Nasal Cannula 4.00 50 11/23/16 05:42 Nasal Cannula 4.00 50 11/23/16 04:00 96.9 65 18 175/96 98 11/23/16 00:00 96.2 60 18 152/84 98 11/22/16 20:24 99 Nasal Cannula 2.00 11/22/16 20:00 2.00 11/22/16 20:00 97.0 60 18 131/75 98 11/22/16 16:00 97.1 71 20 153/84 96 11/22/16 13:45 2.00 I/O 11/22/16 11/22/16 11/22/16 11/23/16 11/23/16 11/23/16 07:00 15:00 23:00 07:00 15:00 23:00 Intake Total 220 ml 1800 ml 480 ml Balance 220 ml 1800 ml 480 ml Intake Oral 120 ml 800 ml 480 ml IV Total 100 ml 1000 ml # Voids 3 4 4 # Bowel Movements 0 1 1 Physical Exam GENERAL: Well developed, well nourished. No acute distress. HEENT: Jugular venous pressure is normal. CHEST: Lungs wheeze to auscultation bilaterally. Unlabored respiratory effort. CARDIAC: irregular rate and rhythm without S3, S4, or murmur. ABDOMEN: Soft, nontender,. Bowel sounds present. EXTREMITIES: No clubbing, cyanosis, or edema. Laboratory Laboratory Tests Test 11/22/16 11/23/16 13:19 05:25 Sodium Level 139 MEQ/L 143 MEQ/L Potassium Level 5.0 MEQ/L 3.8 MEQ/L Chloride Level 105 MEQ/L 109 MEQ/L Carbon Dioxide Level 23.5 MEQ/L 24.7 MEQ/L Anion Gap 11 MEQ/L 9 MEQ/L Blood Urea Nitrogen 49 MG/DL 46 MG/DL Creatinine 1.70 MG/DL 1.10 MG/DL Estimat Glomerular Filtration 36 ML/MIN 59 ML/MIN Rate Random Glucose 460 MG/DL 178 MG/DL Calcium Level 8.5 MG/DL 9.0 MG/DL White Blood Count 11.2 TH/MM3 Red Blood Count 4.15 MIL/MM3 Hemoglobin 10.8 GM/DL Hematocrit 33.8 % Mean Corpuscular Volume 81.4 FL Mean Corpuscular Hemoglobin 25.9 PG Mean Corpuscular Hemoglobin 31.9 % Concent Red Cell Distribution Width 18.0 % Platelet Count 213 TH/MM3 Mean Platelet Volume 9.4 FL Neutrophils (%) (Auto) % Lymphocytes (%) (Auto) % Monocytes (%) (Auto) % Eosinophils (%) (Auto) % Basophils (%) (Auto) % Neutrophils # (Auto) TH/MM3 Lymphocytes # (Auto) TH/MM3 Monocytes # (Auto) TH/MM3 Eosinophils # (Auto) TH/MM3 Basophils # (Auto) TH/MM3 CBC Comment AUTO DIFF Differential Total Cells 100 Counted Neutrophils % (Manual) 86 % Lymphocytes % 8 % Monocytes % 6 % Neutrophils # (Manual) 9.6 TH/MM3 Differential Comment FINAL DIFF MANUAL Platelet Estimate NORMAL Platelet Morphology Comment NORMAL Target Cells 1+ Ovalocytes 1+ Garrison Cells 1+ Rouleau PRESENT Keratocytes OCC Magnesium Level 2.1 MG/DL Thyroid Stimulating Hormone 0.632 uIU/ML 3rd Gen Imaging Last 72 hours Impressions Aorta CTA 11/21/16 0001 Signed Impressions: Service Date/Time: Monday, November 21, 2016 00:24 - CONCLUSION: 1. No thoracic aortic aneurysm or dissection. 2. Patchy densities in the right middle lobe and right lower lobe could be infectious or inflammatory. 3. Mild emphysema without consolidation or mass. 4. Stable enlargement left adrenal gland. Reid Coto MD Chest X-Ray 11/20/16 2240 Signed Impressions: Service Date/Time: Sunday, November 20, 2016 22:48 - CONCLUSION: 1. Prominent pulmonary arteries consistent with pulmonary arterial hypertension. 2. Abnormal density right upper lobe seen best on lateral view. 3. Prominent convexity along the ascending aorta, aneurysmal dilatation of the ascending aorta cannot be excluded. Contrasted CT chest recommended. David Valdez MD Assessment and Plan Assessment and Plan new onset AF- while on metoprolol - agree with stopping albuterol -agree with dilt drip -add amio PO -agree with elitashais COPD/ Pneumonia- - observe Nicki Tobar MD Nov 23, 2016 13:08
[2016-11-23] MEDS ORDERED: AZTREONAM INJ 2,000 MG in SODIUM CHLORIDE 0.9% INJ 100 ML IV SCH (13:14)
[2016-11-23] MEDS ORDERED: DIGOXIN 0.5 MG/2 ML VIAL IV PUSH ONE ×2 (13:15→21:15)
[2016-11-23] MEDS: AMIODARONE 200 MG TAB PO SCH (13:58)
--- NOTE | 2016-11-23 16:10 | HHI.PR ---
Subjective Remarks Patient seen and examined today with Dr. Everett. Patient went in atrial fibrillation with heart rate 140s. However when evaluated the patient this morning she appears to be quite comfortable. She is not complaining of any palpitations or chest discomfort. She is only complaining of right hip pain. Objective Vitals Vital Signs Date Time Temp Pulse Resp B/P Pulse Ox O2 Delivery O2 Flow Rate FiO2 11/23/16 12:00 87.2 104 20 114/79 94 11/23/16 08:00 96.7 117 20 147/102 95 11/23/16 05:43 Nasal Cannula 4.00 50 11/23/16 05:42 Nasal Cannula 4.00 50 11/23/16 04:00 96.9 65 18 175/96 98 11/23/16 00:00 96.2 60 18 152/84 98 11/22/16 20:24 99 Nasal Cannula 2.00 11/22/16 20:00 2.00 11/22/16 20:00 97.0 60 18 131/75 98 11/22/16 16:00 97.1 71 20 153/84 96 I/O 11/22/16 11/22/16 11/22/16 11/23/16 11/23/16 11/23/16 07:00 15:00 23:00 07:00 15:00 23:00 Intake Total 220 ml 1800 ml 480 ml Balance 220 ml 1800 ml 480 ml Intake Oral 120 ml 800 ml 480 ml IV Total 100 ml 1000 ml # Voids 3 4 4 # Bowel Movements 0 1 1 Result Diagram: 11/23/16 0525 11/23/1625 Objective Remarks GENERAL: Well-developed, well-nourished, in no acute distress. alert and orientated HEENT: Head is normocephalic without any lesions or masses noted. Facial features are symmetric. Eyes: Extraocular muscles are intact. Conjunctivae were clear. NECK: Supple without any masses. Trachea midline no deviation. No JVD, CARDIAC: Irregular rhythm, irregular rate. S1/S2 are heard. No murmurs gallops or rubs. LUNGS: Clear to auscultation bilaterally. No wheeze, rhonchi or rales. No use of accessory muscles on inspiration or expiration. ABDOMEN: Soft, nontender. Nondistended. Bowel sounds heard in all 4 quadrants. No organomegaly or masses. Negative rebound, negative guarding EXTREMITIES: No edema, pulses are equal bilaterally. No cyanosis or clubbing NEUROLOGY: Mood and affect appear appropriate. Cranial nerves II through XII grossly intact. Moving all extremities, speech is clear Urinary Catheter: No Vascular Central Line Catheter: No A/P Assessment and Plan New onset atrial fibrillation: Heart rate [id number]. Status post Cardizem IV 15 mg without any significant improvement. Patient started on Cardizem drip and has titrated up to 10 mg without any significant improvement. Patient already on beta madelin metoprolol 50 mg daily, however would not titrate that up at this time due to patient's underlying lung disease. Cardiology is following the patient. She has undergone echocardiogram: This did indicate systolic function was normal with ejection fraction 6065 percent. Mild to moderate tricuspid valve regurgitation. Patient with chads score 3. Patient started on Eliquis for anticoagulation. Cardiology evaluated the patient again today and started patient on amiodarone and digoxin. Severe Sepsis on presentation with leukocytosis, sinus tachycardia, pneumonia. Patient no longer meeting sepsis criteria. Patient was started on empirical antibiotics include Rocephin, Azactam, vancomycin, Flagyl. Influenza testing was negative, blood cultures negative for 3 days Possibly aspiration pneumonia. CT scan does show densities in the right middle and right lower lobe. Was Started on on aztreonam, metronidazole, vancomycin and Rocephin. Antibiotics have been adjusted Rocephin has been discontinued Acute hypoxic respiratory failure with underlying chronic obstructive pulmonary disease: Blood gas with pH 7.34, PCO2 45, PO2 48, bicarbonate 24, O2 sat 75%. Continue O2 supplementation maintain O2 sats greater 92%. Discontinued duo nebs secondary to new onset atrial fibrillation. Patient started on Acapella and incentive spirometry. Home oxygen walk study indicates patient will require home oxygen upon discharge Leukocytosis. Likely secondary to underlying pneumonia. She has significantly improved at this time. Suspected diastolic congestive heart failure, which would be newly diagnosed. With elevated BNP 570. Bilateral crackles. JVD and bilateral lower extremity edema. Echocardiogram was performed which did indicate significant pulmonary hypertension, likely secondary to chronic lung disease. Patient underwent diuresis. Strict input and output. Cardiology did evaluate the patient and recommended outpatient follow-up. Patient is on beta madelin, ARB. Troponin elevation: Likely secondary to multiple factors to include acute kidney injury, congestive heart failure, possible underlying paroxysmal atrial fibrillation. Patient was without any active chest pain. EKG shows sinus arrhythmia with no ST elevation. Cardiology evaluated patient and indicated likely secondary to hypoxia and chronic kidney disease Acute renal failure superimposed on chronic kidney disease stage III could be secondary to increased diuresis, possible hypoperfusion. Renal functions are improving this time. Continue monitor renal function and avoid nephrotoxins Diabetes. Hyperglycemia expected to improve with the initiation of long-acting insulin and discontinuation of prednisone. Patient continued on diabetic diet, Long acting insulin and sliding scale insulin Hypertension. Blood pressure stable this time. Patient has had additional medications added. Further recommendations once rate control has been achieved. Tobacco abuse. Patient counseled on cessation. DVT prevention: Patient started on Eliquis Written by Eren Gallegos PA-C, acting as scribe for Dr. Everett on 11/23/16 at 0800. The documentation accurately reflects the work and decisions performed face-to- face by Dr. Everett on 11/23/16 at 0800. This note was transcribed by scribe Eren Gallegos PA-C, . I, Dr. Jose Everett personally performed the history, physical exam, and medical decision making; and confirmed the accuracy of the information in the transcribed note. Authenticated by Dr. Jose Everett on 11/23/16 at 17:01. Eren Gallegos Nov 23, 2016 16:10 Jose Everett MD Nov 23, 2016 17:01
[2016-11-23 16:20] LABS: BLOOD, URINE NEG (NEG); GLUCOSE,URINE 100 mg/dL (NEG); KETONE, URINE NEG (NEG); NITRITE,URINE NEG (NEG)
[2016-11-23 16:38] LABS: COMMENT (UR) CULT NOT INDICATED; CULTURE IF INDICATED CULT NOT INDICATED; SQUAMOUS EPITHELIAL CELL URINE 0-5 /hpf (0-5); URINE COLOR YELLOW (YELLW/STRAW)
--- NOTE | 2016-11-23 17:24 | EKG ---
Date Performed: 11/23/2016 Time Performed: 06:59:10 PTAGE: 71 years EKG: Atrial fibrillation with rapid ventricular response Abnormal ECG PREVIOUS TRACING : 11/21/2016 10.56 Compared to previous tracing, atrial fibrillation has repla constance Sinus rhythm , heart rate has increased. DOCTOR: Vincent Dotson Interpretating Date/Time 11/23/2016 17:22:46
[2016-11-23] MEDS: ATORVASTATIN 20 MG TAB PO SCH (23:28)
[2016-11-23] MEDS: INSULIN DETEMIR 100 UNITS/ML VIAL SQ SCH (23:30)
[2016-11-24] VITALS (7 sets, daily range): BP systolic 158–184; BP diastolic 60–93; PULSE 51–70; RESP 20; TEMP 96.5–96.9; O2SAT 96–100
[2016-11-24] MEDS: AMIODARONE 200 MG TAB PO SCH ×2 (00:13→08:26)
[2016-11-24] MEDS: AZTREONAM INJ 2,000 MG in SODIUM CHLORIDE 0.9% INJ 100 ML IV SCH ×2 (00:47→11:33)
[2016-11-24] MEDS: metroNIDAZOLE 500 MG INJ 100 ML IV SCH ×2 (04:58→11:39)
[2016-11-24] MEDS ORDERED: VANCOMYCIN 1,000 MG/NS 250 ML IV SCH ×2 (06:00)
[2016-11-24] MEDS: INSULIN NovoLIN REGULAR SUPPLEMENTAL SCALE SQ SCH ×2 (06:55→11:38)
[2016-11-24 06:58] LABS: POTASSIUM 3.7 MEQ/L (3.5-5.1)
[2016-11-24 07:01] LABS: BICARBONATE 25.1 MEQ/L (21.0-32.0)
[2016-11-24 07:35] LABS: MAGNESIUM 2.2 MG/DL (1.5-2.5)
[2016-11-24] MEDS: METOPROLOL TARTRATE 50 MG TAB PO SCH (08:26)
[2016-11-24] MEDS: APIXABAN 5 MG TABLET PO SCH (08:26)
[2016-11-24] MEDS: SODIUM CHLORIDE 0.9% FLUSH 10 ML FLUSH IV FLUSH SCH (08:27)
[2016-11-24] MEDS ORDERED: INSULIN DETEMIR 100 UNITS/ML VIAL SQ SCH ×2 (09:00→21:00)
[2016-11-24] MEDS ORDERED: METOPROLOL TARTRATE 50 MG TAB PO SCH (09:00)
[2016-11-24] MEDS ORDERED: DIGOXIN 0.125 MG TAB PO SCH (09:00)
[2016-11-24] MEDS ORDERED: amLODIPine BESYLATE 5 MG TAB PO SCH (09:00)
[2016-11-24] MEDS ORDERED: LOSARTAN 50 MG TAB PO SCH (09:00)
[2016-11-24] MEDS ORDERED: LOSARTAN 50 MG TAB PO ONE (09:00)
--- NOTE | 2016-11-24 09:59 | HHI.DCPOC ---
Discharge Care Plan Diagnosis: (1) Sepsis (2) Pneumonia (3) Atrial fibrillation Goals to Promote Your Health * To prevent worsening of your condition and complications * To maintain your health at the optimal level Directions to Meet Your Goals Take your medications as prescribed Follow your dietary instruction Follow activity as directed Keep your appointments as scheduled Take your immunizations and boosters as scheduled If your symptoms worsen call your PCP, if no PCP go to Urgent Care Center or Emergency Room Smoking is Dangerous to Your Health. Avoid second hand smoke Call the 24-hour hour crisis hotline for domestic abuse at Eren Gallegos Nov 24, 2016 09:59
[2016-11-24] MEDS ORDERED: AMIODARONE 200 MG TAB PO SCH (10:15)
[2016-11-24] MEDS ORDERED: LEVA750T PO (10:41)
[2016-11-24] MEDS ORDERED: PHARMACY ORDERED LAB ONE (10:45)
[2016-11-24] MEDS ORDERED: AMIO200T PO ×2 (10:51)
[2016-11-24] MEDS ORDERED: APIX5TAB PO (10:51)
[2016-11-24] MEDS ORDERED: METO-309 PO (10:51)
--- NOTE | 2016-11-24 11:02 | HHI.DS ---
Discharge Summary Admission Date Nov 21, 2016 at 02:29 Discharge Date: Nov 24, 2016 Admitting Diagnosis Hypoxia, sepsis (1) Sepsis ICD Code: A41.9 (2) Pneumonia ICD Code: J18.9 (3) Hypoxia ICD Code: R09.02 (4) Atrial fibrillation ICD Code: I48.91 (5) NSTEMI (non-ST elevated myocardial infarction) ICD Code: I21.4 Procedures Echocardiogram: Systolic function was normal. Ejection fraction 6065 percent. Mild to moderate tricuspid valve regurgitation. PA peak pressure 59 mmhg Brief History - From Admission Patient is a pleasant 71-year-old female with a history of hypertension, diabetes, hyperlipidemia, COPD, who presents with a 2 day history of shortness of breath, worse with exertion, as well as cough productive of white sputum. She denies any chest pain. Denies any fevers or chills. Denies any sore throat. She does report dry heaves for the past 2 days, but no vomiting. She does report the dry heaves are better at this time. She also reports bilateral lower extremity edema for the past 2 days. She says that this will happen occasionally. She has been hydrating aggressively over the past 2 days due to respiratory issues. He denies any past history of heart disease. Denies any recent medication changes. CBC/BMP: 11/23/16 0525 11/24/16 0630 Significant Findings Laboratory Tests Test 11/22/16 11/22/16 11/23/16 11/23/16 05:05 13:19 05:25 16:10 Hemoglobin 10.2 GM/DL 10.8 GM/DL (11.6-15.3) (11.6-15.3) Hematocrit 32.5 % 33.8 % (35.0-46.0) (35.0-46.0) Mean Corpuscular Hemoglobin 25.5 PG 25.9 PG (27.0-34.0) (27.0-34.0) Mean Corpuscular Hemoglobin 31.4 % 31.9 % Concent (32.0-36.0) (32.0-36.0) Red Cell Distribution Width 18.1 % 18.0 % (11.6-17.2) (11.6-17.2) Neutrophils % (Manual) 90 % (16-70) 86 % (16-70) Lymphocytes % 6 % (9-44) 8 % (9-44) Neutrophils # (Manual) 9.6 TH/MM3 9.6 TH/MM3 (1.8-7.7) (1.8-7.7) Target Cells 1+ (NORMAL) 1+ (NORMAL) Ovalocytes 1+ (NORMAL) 1+ (NORMAL) Keratocytes OCC (NORMAL) OCC (NORMAL) Blood Urea Nitrogen 46 MG/DL (7-18) 49 MG/DL (7-18) 46 MG/DL (7-18) Creatinine 1.50 MG/DL 1.70 MG/DL 1.10 MG/DL (0.50-1.00) (0.50-1.00) (0.50-1.00) Estimat Glomerular Filtration 41 ML/MIN (>89) 36 ML/MIN (>89) 59 ML/MIN (>89) Rate Random Glucose 353 MG/DL 460 MG/DL 178 MG/DL (74-106) (74-106) (74-106) White Blood Count 11.2 TH/MM3 (4.0-11.0) Jordan Cells 1+ (NORMAL) Rouleau PRESENT (NORMAL) Chloride Level 109 MEQ/L (98-107) Urine Protein 30 mg/dL (NEG-TRACE) Urine Glucose (UA) 100 mg/dL (NEG) Test 11/23/16 11/24/16 17:04 06:30 Random Glucose 450 MG/DL 44 MG/DL (74-106) (74-106) Sodium Level 146 MEQ/L (136-145) Chloride Level 113 MEQ/L (98-107) Blood Urea Nitrogen 42 MG/DL (7-18) Estimat Glomerular Filtration 67 ML/MIN (>89) Rate Imaging Last Impressions Aorta CTA 11/21/16 0001 Signed Impressions: Service Date/Time: Monday, November 21, 2016 00:24 - CONCLUSION: 1. No thoracic aortic aneurysm or dissection. 2. Patchy densities in the right middle lobe and right lower lobe could be infectious or inflammatory. 3. Mild emphysema without consolidation or mass. 4. Stable enlargement left adrenal gland. Reid Coto MD Chest X-Ray 11/20/16 3000 Signed Impressions: Service Date/Time: Sunday, November 20, 2016 22:48 - CONCLUSION: 1. Prominent pulmonary arteries consistent with pulmonary arterial hypertension. 2. Abnormal density right upper lobe seen best on lateral view. 3. Prominent convexity along the ascending aorta, aneurysmal dilatation of the ascending aorta cannot be excluded. Contrasted CT chest recommended. David Valdez MD PE at Discharge GENERAL: Well-developed, well-nourished, in no acute distress. alert and orientated HEENT: Head is normocephalic without any lesions or masses noted. Facial features are symmetric. Eyes: Extraocular muscles are intact. Conjunctivae were clear. NECK: Supple without any masses. Trachea midline no deviation. No JVD, CARDIAC: Irregular rhythm, irregular rate. S1/S2 are heard. No murmurs gallops or rubs. LUNGS: Clear to auscultation bilaterally. No wheeze, rhonchi or rales. No use of accessory muscles on inspiration or expiration. ABDOMEN: Soft, nontender. Nondistended. Bowel sounds heard in all 4 quadrants. No organomegaly or masses. Negative rebound, negative guarding EXTREMITIES: No edema, pulses are equal bilaterally. No cyanosis or clubbing NEUROLOGY: Mood and affect appear appropriate. Cranial nerves II through XII grossly intact. Moving all extremities, speech is clear Hospital Course 71-year-old female originally presented to hospital because of shortness of breath, dyspnea on exertion, cough. Patient had initial workup performed which did indicate leukocytosis, acute kidney injury,, elevated troponin, elevated BNP with abnormal density seen in the right upper lobe partial pneumonia,. Patient was admitted under septic protocol. Patient started on antibiotics to include Rocephin, Zithromax, vancomycin, Flagyl. Patient was converted to Azactam and Flagyl after cultures were ascertained. Patient was started on IV fluids with good response with renal function and appears return to baseline. Cardiology was consulted in indicated that the equivocal troponin elevation was likely secondary to sepsis and acute kidney injury. Patient was initially treated for congestive heart failure. Patient had echocardiogram done which did show good ejection fraction with 60-65%. Did have significant DAP pressure indicating pulmonary hypertension which was also seen on chest x-ray. Patient had medication adjustment, she was diuresed well. Yesterday patient developed acute onset atrial fibrillation. Patient was given Cardizem IV with no initial improvement. Patient was simply started on Cardizem drip. Cardiology reevaluated the patient and started patient on amiodarone by mouth, digoxin. Patient converted to sinus rhythm at 1730 yesterday afternoon. Heart rate has been stable between 55 and 70. Blood pressure did have mild increase since the adjusting of the Cozaar. Digital Analyst has came in and readjusted medications and patient is now on Lopressor 50 mg twice daily, Cozaar 100 mg daily, amiodarone 200 mg twice daily. Patient clinically improved at this time. Denies any symptoms. She did have a chads of 3 which she was started Eliquis for anticoagulation. Patient is clinically stable this time. Case was discussed with soil sort worker who indicates that the patient can be discharged with outpatient follow-up in the next week. Will plan discharge accordingly. Pt Condition on Discharge: Stable Discharge Disposition: Disch w/ Home Health Serv Discharge Time: > 30 minutes Discharge Instructions DIET: Follow Instructions for: Diabetic Diet Activities you can perform: Regular-No Restrictions Activities to Avoid: Driving for 24 hrs Follow up Referrals: Cardiology - [address] Tobar PCP Follow-up - 1 Week New Medications: Amiodarone (Amiodarone) 200 Mg Tab 200 MG PO DAILY Start taking after completion of prescription for amiodarone 200 mg twice daily has been completed Regulate Heart Beat #30 Ref 0 TAB Levofloxacin (Levaquin) 750 Mg Tab 750 MG PO DAILY Infection #7 Ref 0 TAB Oxygen tank (Oxygen tank) 1 Ea Tank 2 LITER [facility] CONTINUOUS Oxygen Concentrator Portable Gaseous 2 L/min via Nasal Cannula Continuous For 99 months HYPOXEMIA PREVENTION #2 CYLINDER Amiodarone (Amiodarone) 200 Mg Tab 200 MG PO Q12HR atrial fibrillation #44 TAB Apixaban (Eliquis) 5 Mg Tab 5 MG PO BID atrial fibrillation #60 TAB Metoprolol Tartrate (Lopressor) 50 Mg Tab 50 MG PO BID Blood Pressure Management #60 TAB Continued Medications: Amlodipine (Amlodipine) 5 Mg Tab 5 MG PO DAILY Blood Pressure Management #30 Ref 0 TAB Atorvastatin (Atorvastatin) 20 Mg Tab 20 MG PO HS Cholesterol Management #30 Ref 0 TAB Coenzyme Q10 (Ubidecarenone) (Coq10) 100 Mg Cap 100 MG PO DAILY Losartan (Losartan) 100 Mg Tab 100 MG PO DAILY Blood Pressure Management #30 Ref 0 TAB Varnell-3 Fatty Acids (Fish Oil) 500 Mg Cap 300 MG PO DAILY Discontinued Medications: Furosemide (Furosemide) 20 Mg Tab 20 MG PO DAILY #30 Ref 0 TAB Metoprolol Tartrate (Metoprolol Tartrate) 50 Mg Tab 50 MG PO DAILY #30 Ref 0 TAB Additional Information Written by Eren Gallegos, acting as scribe for Dr. Everett on 11/24/16 at 10: 54. This note was transcribed by scribe Eren Gallegos. I, Dr. Jose Everett personally performed the history, physical exam, and medical decision making; and confirmed the accuracy of the information in the transcribed note. Authenticated by Dr. Jose Everett on 11/24/16 at 13:45. Eren Gallegos Nov 24, 2016 11:02 Jose Everett MD Nov 24, 2016 13:45
[2016-11-24 11:30] LABS: HEMOGLOBIN A1a 1.7 %; HEMOGLOBIN A1b 2.7 %; HEMOGLOBIN Ao 80.2 %; HEMOGLOBIN LA1C 2.2 %; HEMOGLOBIN P3 7.3 %
[2016-11-25] MEDS ORDERED: LOSARTAN 50 MG TAB PO SCH (09:00)
[2016-11-26] MEDS ORDERED: PHARMACY ORDERED LAB ONE (11:45)
== END 2016-11-24 13:50 | disposition home health service (06) | DRG 871 ==
LOC: PHED 22:04 → PHEDA 11-21 02:29 → PH3B 11-21 03:31
PROVIDERS: ADMIT Internal Medicine; ATTEND Internal Medicine
DX: A41.9 Sepsis, unspecified organism (principal); R65.20 Severe sepsis without septic shock; J96.01 Acute respiratory failure with hypoxia; J44.0 Chronic obstructive pulmonary disease with (acute) lower respiratory infection; J69.0 Pneumonitis due to inhalation of food and vomit; I50.31 Acute diastolic (congestive) heart failure; N17.9 Acute kidney failure, unspecified; I27.2 Other secondary pulmonary hypertension; I48.91 Unspecified atrial fibrillation; I12.9 Hypertensive chronic kidney disease with stage 1 through stage 4 chronic kidney disease, or unspecified chronic kidney disease; N18.3 Chronic kidney disease, stage 3 (moderate); R74.8 Abnormal levels of other serum enzymes; E11.65 Type 2 diabetes mellitus with hyperglycemia; Z79.84 Long term (current) use of oral hypoglycemic drugs; Z79.4 Long term (current) use of insulin; F17.210 Nicotine dependence, cigarettes, uncomplicated; R60.9 Edema, unspecified; E78.5 Hyperlipidemia, unspecified; Z85.038 Personal history of other malignant neoplasm of large intestine
CPT/HCPCS: 36600; 71020; 71275; 74174; 80048; 80162; 81001; 82550; 82805; 82947; 82948; 83036; 83605; 83735; 83880; 84443; 84484; 85007; 85027; 85610; 85730; 87040; 87804; 93005; 93306; 94150; 94620; 94640; 94664; 94667; 94668; 96361; 96365; 96367; 96375; J0456; J0696; J1160; J1815; J1940; J2930; J3370; J7040; J7050; J7512; J7613; Q9967

== ENCOUNTER 2017-01-02 04:13 | Inpatient (IN) | payer MEDICARE, OTHER ==
[~2017-01-02] VITALS: Ht 165.1 cm; Wt 91.5 kg
[2017-01-02] VITALS (54 sets, daily range): BP systolic 92–191; BP diastolic 53–111; PULSE 55–78; RESP 6–25; TEMP 95–98.9; O2SAT 57–100
[~2017-01-02 04:13] MED LIST changes: +AMIO200T PO; +AMLO5TAB2 PO; -AMLO5TAB22 PO; +APIX5TAB PO; +ATOR20TA15 PO; -COEN1CAP4; +COQ1100C PO; -COZA100T PO; -D31000CA PO; +FISH500C PO; -GLUCTAB OR; -LANTINJ SQ; +LANTUS2P SQ; +LEVA750T PO; -LISI-366 PO; -LORTA5 PO; +LOSA100T PO; +METF1000 PO; +METO-309 PO; -METO50TA PO; -NOVOINJ3 SQ; -OMEG100037; -OMNI1SUS EACH EYE; +OXYGENTANK NAS.CANULA; -ROSU10 PO; -TRAV0.00 BOTH EYES; -TRUS2SOL EACH EYE; -[UNRECOGNIZED DRUG - OTHER] LEFT EYE
[2017-01-02 04:23] LABS: MEAN CORPUSCULAR HGB CONC 29.9 % (32.0-36.0)
[2017-01-02] MEDS ORDERED: PROPOFOL 1000 MG/100 ML INJ 100 ML IV SCH (04:30)
--- NOTE | 2017-01-02 04:39 | PD ---
HPI Chief Complaint: Respiratory Distress Time Seen by Provider: 04:18 Travel History International Travel<30 days: No Contact w/Intl Traveler<30days: No Traveled to known affect area: No History of Present Illness HPI Patient is a 71-year-old female who presents to emergency room with EMS with complaints of respiratory distress. As per EMS, patient's called for help as patient has been short of breath for the past few days. EMS reports that when they arrived on scene, her GCS was 8. Patient was intubated with Ativan and 20mg of etomidate. Patient unable to provide history of present illness at this time. PFSH Past Medical History Hx Anticoagulant Therapy: Yes Arthritis: Yes Asthma: No Autoimmune Disease: No Anxiety: No Depression: No Heart Rhythm Problems: No Cancer: Yes Cardiovascular Problems: Yes High Cholesterol: Yes Chemotherapy: No Chest Pain: No Congestive Heart Failure: No (bnp elevated this admision.) COPD: Yes Cerebrovascular Accident: No Diabetes: Yes Diminished Hearing: No Endocrine: Yes Gastrointestinal Disorders: Yes ( PANCREATITIS; ADRENAL MASS) GERD: Yes Glaucoma: Yes Genitourinary: Yes ( RENAL INSUFFICIENCY/// PT UNAWARE 01/20/15) Hiatal Hernia: No Hypertension: Yes Immune Disorder: No Musculoskeletal: Yes Neurologic: Yes Psychiatric: No Reproductive: No Respiratory: Yes Immunizations Current: Yes Migraines: Yes (SINUSHEADACES) Radiation Therapy: No Renal Failure: No Seizures: No Sickle Cell Disease: No Sleep Apnea: No Thyroid Disease: No Ulcer: No PNEUMOCCOCAL Vaccine (Year): 1 Menopausal: Yes Past Surgical History Abdominal Surgery: Yes (colon resection r/t ca.) AICD: No Arteriovenous Shunt: No Cardiac Surgery: No Ear Surgery: No Endocrine Surgery: No Eye Surgery: Yes (CATARACT LEFT EYE) Genitourinary Surgery: No Gynecologic Surgery: Yes (HYSTERECTOMY PARTIAL 1959') Hysterectomy: Yes Insulin Pump: No Joint Replacement: No Oral Surgery: Yes (T&A CHILD) Pacemaker: No Thoracic Surgery: No Tonsillectomy: Yes Other Surgery: Yes Social History Alcohol Use: Yes Tobacco Use: Yes (1 PPD) Substance Use: No Allergies-Medications (Allergen,Severity, Reaction): Coded Allergies: Penicillin (Verified Allergy, Severe, SWELLING, 11/20/16) Reported Meds & Prescriptions Reported Meds & Active Scripts Active Amiodarone (Amiodarone HCl) 200 Mg Tab 200 Mg PO DAILY Start taking after completion of prescription for amiodarone 200 mg twice daily has been completed Amiodarone (Amiodarone HCl) 200 Mg Tab 200 Mg PO Q12HR Eliquis (Apixaban) 5 Mg Tab 5 Mg PO BID Lopressor (Metoprolol Tartrate) 50 Mg Tab 50 Mg PO BID Levaquin (Levofloxacin) 750 Mg Tab 750 Mg PO DAILY Oxygen tank (Oxygen) 1 Ea Tank 2 Liter PATRICIA.CANULA CONTINUOUS Oxygen Concentrator Portable Gaseous 2 L/min via Nasal Cannula Continuous For 99 months Reported Lantus Inj (Insulin Glargine) 1,000 Unit/10 Ml Vial 14 Units SQ HS Novolog Inj (Insulin Aspart) 1,000 Unit/10 Ml Vial 10 Units SQ BID Fish Oil ([place]-3 Fatty Acids) 500 Mg Cap 300 Mg PO DAILY Coq10 (Coenzyme Q10 (Ubidecarenone)) 100 Mg Cap 100 Mg PO DAILY Atorvastatin (Atorvastatin Calcium) 20 Mg Tab 20 Mg PO HS Amlodipine (Amlodipine Besylate) 5 Mg Tab 5 Mg PO DAILY Losartan (Losartan Potassium) 100 Mg Tab 100 Mg PO DAILY Metformin (Metformin HCl) 1,000 Mg Tab 1,000 Mg PO BIDPC With meals Review of Systems ROS Limitations: Intubated General / Constitutional: No: Fever Eyes: No: Visual changes HENT: No: Headaches Cardiovascular: No: Chest Pain or Discomfort Respiratory: No: Shortness of Breath Gastrointestinal: No: Abdominal Pain Genitourinary: No: Dysuria Musculoskeletal: No: Pain Skin: No Rash Neurologic: No: Weakness Psychiatric: No: Depression Endocrine: No: Polydipsia Hematologic/Lymphatic: No: Easy Bruising Physical Exam Narrative GENERAL: moderate distress SKIN: Focused skin assessment warm/dry. HEAD: Atraumatic. Normocephalic. ENT: No nasal bleeding or discharge. Mucous membranes pink and moist. ETT in place NECK: Trachea midline. No JVD. CARDIOVASCULAR: Regular rate and rhythm. No murmur appreciated. RESPIRATORY: No accessory muscle use. Clear to auscultation. Breath sounds equal bilaterally. GASTROINTESTINAL: Abdomen soft, non-tender, nondistended. Hepatic and splenic margins not palpable. MUSCULOSKELETAL: No obvious deformities. No clubbing. No cyanosis. No edema. NEUROLOGICAL: patient intubated Data Data Last Documented VS Vital Signs Date Time Temp Pulse Resp B/P Pulse Ox O2 Delivery O2 Flow Rate FiO2 01/02/17 04:18 95.0 58 14 160/111 100 01/02/17 04:15 Ventilator 100 Orders Electrocardiogram (01/02/17 04:20) Complete Blood Count With Diff (01/02/17 04:20) Comprehensive Metabolic Panel (01/02/17 04:20) Prothrombin Time / Inr (Pt) (01/02/17 04:20) Act Partial Throm Time (Ptt) (01/02/17 04:20) Lactic Acid Sepsis Protocol (01/02/17 04:20) Magnesium (Mg) (01/02/17 04:20) Lipase (01/02/17 04:20) Ckmb (Isoenzyme) Profile (01/02/17 04:20) Troponin I (01/02/17 04:20) Urinalysis - C+S If Indicated (01/02/17 04:20) Influenzae A/B Antigen (01/02/17 04:20) Blood Culture (01/02/17 04:20) Sputum Culture And Gram Stain (01/02/17 04:20) Chest, Single Ap (01/02/17 04:20) Propofol 1000 Mg/100 Ml Inj (Diprivan 10 (01/02/17 04:30) Chava-Gastric Tube Insert/Mon (01/02/17 04:20) Urinary Catheter Insert/Apply (01/02/17 04:30) Restraints Non-Violent RAMU.Q3H (01/02/17 04:30) Magnesium Sulfate 1 Gm Premix (Magnesium (01/02/17 04:30) Arterial Blood Gas (Abg) (01/02/17 04:40) Aztreonam Inj (Azactam Inj) (01/02/17 05:45) Azithromycin Inj (Zithromax Inj) (01/02/17 05:15) Labs Laboratory Tests Test 01/02/17 01/02/17 01/02/17 01/02/17 04:16 04:28 04:30 04:40 Lactic Acid Level 1.5 mmol/L Urine Color YELLOW Urine Turbidity HAZY Urine pH 6.0 Urine Specific [place] 1.013 Urine Protein 300 mg/dL Urine Glucose (UA) NEG mg/dL Urine Ketones NEG mg/dL Urine Occult Blood NEG Urine Nitrite NEG Urine Bilirubin NEG Urine Urobilinogen LESS THAN 2.0 MG/DL Urine Leukocyte Esterase NEG Urine RBC 4 /hpf Urine WBC 4 /hpf Urine Squamous Epithelial 1 /hpf Cells Urine Amorphous Sediment OCC Urine Hyaline Casts /lpf Urine Mucus FEW /lpf Microscopic Urinalysis Comment CATH-CULT NOT IND White Blood Count 14.1 TH/MM3 Red Blood Count 3.82 MIL/MM3 Hemoglobin 9.5 GM/DL Hematocrit 31.9 % Mean Corpuscular Volume 83.5 FL Mean Corpuscular Hemoglobin 24.9 PG Mean Corpuscular Hemoglobin 29.9 % Concent Red Cell Distribution Width 21.1 % Platelet Count 258 TH/MM3 Mean Platelet Volume 9.2 FL Neutrophils (%) (Auto) 77.4 % Lymphocytes (%) (Auto) 16.0 % Monocytes (%) (Auto) 5.6 % Eosinophils (%) (Auto) 0.4 % Basophils (%) (Auto) 0.6 % Neutrophils # (Auto) 10.9 TH/MM3 Lymphocytes # (Auto) 2.3 TH/MM3 Monocytes # (Auto) 0.8 TH/MM3 Eosinophils # (Auto) 0.1 TH/MM3 Basophils # (Auto) 0.1 TH/MM3 CBC Comment DIFF FINAL Differential Comment Prothrombin Time 11.2 SEC Prothromb Time International 1.0 RATIO Ratio Activated Partial 22.5 SEC Thromboplast Time Sodium Level 147 MEQ/L Potassium Level 4.3 MEQ/L Chloride Level 111 MEQ/L Carbon Dioxide Level 29.0 MEQ/L Anion Gap 7 MEQ/L Blood Urea Nitrogen 20 MG/DL Creatinine 1.52 MG/DL Estimat Glomerular Filtration 41 ML/MIN Rate Random Glucose 114 MG/DL Calcium Level 8.6 MG/DL Magnesium Level 2.1 MG/DL Total Bilirubin 0.8 MG/DL Aspartate Amino Transf 34 U/L (AST/SGOT) Alanine Aminotransferase 21 U/L (ALT/SGPT) Alkaline Phosphatase 102 U/L Total Creatine Kinase 82 U/L Troponin I 0.06 NG/ML Total Protein 6.9 GM/DL Albumin 3.0 GM/DL Lipase 139 U/L Blood Gas Puncture Site RT RADIAL Blood Gas Patient Temperature 98.6 Blood Gas HCO3 25 mmol/L Blood Gas Base Excess -0.7 mmol/L Blood Gas Oxygen Saturation 98 % Arterial Blood pH 7.31 Arterial Blood Partial 51 mmHg Pressure CO2 Arterial Blood Partial 260 mmHG Pressure O2 Arterial Blood Oxygen Content 13.1 Vol % Arterial Blood 1.2 % Carboxyhemoglobin Arterial Blood Methemoglobin 0.4 % Blood Gas Hemoglobin 9.1 G/DL Oxygen Delivery Device VENTILATOR Blood Gas Ventilator Setting Blood Gas Inspired Oxygen 100 % MDM Medical Decision Making Medical Screen Exam Complete: Yes Emergency Medical Condition: Yes Interpretation(s) Vital Signs Date Time Temp Pulse Resp B/P Pulse Ox O2 Delivery O2 Flow Rate FiO2 01/02/17 04:18 58 14 160/111 100 Differential Diagnosis ACS, pneumonia, CHF exacerbation, electrolyte abnormality, arrhythmia Narrative Course Patient is a 71-year-old female who presents to emergency room intubated after she was found to be in respiratory distress by her today. As per EMS, patient was found to have a GCS of 8. Patient was intubated on scene and brought to the emergency room. Patient's previous records were reviewed, patient has history of hypertension, diabetes, hyperlipidemia, COPD, colon cancer, pancreatitis, chronic kidney disease, history of migraines. She currently is on furosemide, atorvastatin, Eliquis, NovoLog, Lantus, amiodarone, metoprolol, losartan. Patient was placed on a site monitor, labs including blood cultures and x- ray chest ordered, OG-tube as well as Yañez catheter ordered. Laboratory Tests Test 01/02/17 01/02/17 01/02/17 01/02/17 04:16 04:28 04:30 04:40 Lactic Acid Level 1.5 mmol/L (0.4-2.0) Urine Color YELLOW (YELLW/STRAW) Urine Turbidity HAZY (CLEAR) Urine pH 6.0 (5.0-8.5) Urine Specific [place] 1.013 (1.002-1.035) Urine Protein 300 mg/dL (NEG-TRACE) Urine Glucose (UA) NEG mg/dL (NEG) Urine Ketones NEG mg/dL (NEG) Urine Occult Blood NEG (NEG) Urine Nitrite NEG (NEG) Urine Bilirubin NEG (NEG) Urine Urobilinogen LESS THAN 2.0 MG/DL (LESS THAN 2.0) Urine Leukocyte Esterase NEG (NEG) Urine RBC 4 /hpf (0-3) Urine WBC 4 /hpf (0-5) Urine Squamous Epithelial 1 /hpf (0-5) Cells Urine Amorphous Sediment OCC Urine Hyaline Casts /lpf (RARE) Urine Mucus FEW /lpf (OCC) Microscopic Urinalysis Comment CATH-CULT NOT IND White Blood Count 14.1 TH/MM3 (4.0-11.0) Red Blood Count 3.82 MIL/MM3 (4.00-5.30) Hemoglobin 9.5 GM/DL (11.6-15.3) Hematocrit 31.9 % (35.0-46.0) Mean Corpuscular Volume 83.5 FL (80.0-100.0) Mean Corpuscular Hemoglobin 24.9 PG (27.0-34.0) Mean Corpuscular Hemoglobin 29.9 % Concent (32.0-36.0) Red Cell Distribution Width 21.1 % (11.6-17.2) Platelet Count 258 TH/MM3 (150-450) Mean Platelet Volume 9.2 FL (7.0-11.0) Neutrophils (%) (Auto) 77.4 % (16.0-70.0) Lymphocytes (%) (Auto) 16.0 % (9.0-44.0) Monocytes (%) (Auto) 5.6 % (0.0-8.0) Eosinophils (%) (Auto) 0.4 % (0.0-4.0) Basophils (%) (Auto) 0.6 % (0.0-2.0) Neutrophils # (Auto) 10.9 TH/MM3 (1.8-7.7) Lymphocytes # (Auto) 2.3 TH/MM3 (1.0-4.8) Monocytes # (Auto) 0.8 TH/MM3 (0-0.9) Eosinophils # (Auto) 0.1 TH/MM3 (0-0.4) Basophils # (Auto) 0.1 TH/MM3 (0-0.2) CBC Comment DIFF FINAL Differential Comment Prothrombin Time 11.2 SEC (9.8-11.6) Prothromb Time International 1.0 RATIO Ratio Activated Partial 22.5 SEC Thromboplast Time (24.3-30.1) Sodium Level 147 MEQ/L (136-145) Potassium Level 4.3 MEQ/L (3.5-5.1) Chloride Level 111 MEQ/L (98-107) Carbon Dioxide Level 29.0 MEQ/L (21.0-32.0) Anion Gap 7 MEQ/L (5-15) Blood Urea Nitrogen 20 MG/DL (7-18) Creatinine 1.52 MG/DL (0.50-1.00) Estimat Glomerular Filtration 41 ML/MIN (>89) Rate Random Glucose 114 MG/DL (74-106) Calcium Level 8.6 MG/DL (8.5-10.1) Magnesium Level 2.1 MG/DL (1.5-2.5) Total Bilirubin 0.8 MG/DL (0.2-1.0) Aspartate Amino Transf 34 U/L (15-37) (AST/SGOT) Alanine Aminotransferase 21 U/L (10-53) (ALT/SGPT) Alkaline Phosphatase 102 U/L (45-117) Total Creatine Kinase 82 U/L (26-192) Troponin I 0.06 NG/ML (0.02-0.05) Total Protein 6.9 GM/DL (6.4-8.2) Albumin 3.0 GM/DL (3.4-5.0) Lipase 139 U/L (73-393) Blood Gas Puncture Site RT RADIAL Blood Gas Patient Temperature 98.6 Blood Gas HCO3 25 mmol/L (22-26) Blood Gas Base Excess -0.7 mmol/L (-2-2) Blood Gas Oxygen Saturation 98 % (90-100) Arterial Blood pH 7.31 (7.380-7.420) Arterial Blood Partial 51 mmHg (38-42) Pressure CO2 Arterial Blood Partial 260 mmHG Pressure O2 (61-120) Arterial Blood Oxygen Content 13.1 Vol % (12.0-20.0) Arterial Blood 1.2 % (0-4) Carboxyhemoglobin Arterial Blood Methemoglobin 0.4 % (0-2) Blood Gas Hemoglobin 9.1 G/DL (12.0-16.0) Oxygen Delivery Device VENTILATOR Blood Gas Ventilator Setting Blood Gas Inspired Oxygen 100 % Last Impressions Chest X-Ray 01/02/17 0420 Signed Impressions: Service Date/Time: Monday, January 02, 2017 04:34 - CONCLUSION: Interval development of bibasilar mixed interstitial and alveolar process. Jason Crisostomo MD case reviewed with dr. ryan who accepts pt to service Critical Care Narrative Aggregate critical care time was 30 minutes. Time to perform other separately billable procedures was not included in the critical care time. My time did not include minutes spent treating any other patients simultaneously or on activities that did not directly contribute to the patient's treatment. The services I provided to this patient were to treat and/or prevent clinically significant deterioration that could result in: , decompensation, deterioration I provided critical care services requiring my management, as noted below: Chart data review, documentation time, medication orders and management, vital sign assessments/reviewing monitor data, ordering and reviewing lab tests, ordering and interpreting/reviewing x-rays and diagnostic studies, care of the patient and discussion of the patient with the admitting physicians. Diagnosis Primary Impression: Ventilator dependence Additional Impressions: Pneumonia COPD exacerbation NSTEMI (non-ST elevated myocardial infarction) Admitting Information Admitting Physician Requests: Admit Orin Colorado DO January 02, 2017 04:39
--- NOTE | 2017-01-02 04:40 | RADRPT ---
EXAM DATE/TIME: 01/02/2017 04:34 [facility] COMPARISON: CHEST PA & LAT, November 20, 2016, 22:48. INDICATIONS : Post intubation. MEDICAL HISTORY : Hypertension. Diabetes mellitus type II. SURGICAL HISTORY : None. ENCOUNTER: Initial ACUITY: 1 day PAIN SCORE: Non-responsive. LOCATION: Bilateral chest FINDINGS: Slight cardiomegaly has not changed. NG tube is present with tip in the stomach. ET tube is present w ith tip overlapping approximately 3 cm above the brunilda. Bibasilar mixed interstitial and alveolar pr ocess has developed not present previously. CONCLUSION: Interval development of bibasilar mixed interstitial and alveolar process. Jason Crisostomo MD on January 02, 2017 at 4:37 Board Certified Radiologist. This report was verified electronically.
[2017-01-02 04:53] LABS: BLOOD GAS BASE EXCESS -0.7 mmol/L (-2-2); BLOOD GAS CARBOXYHEMOGLOBIN 1.2 % (0-4); BLOOD GAS HCO3 25 mmol/L (22-26); BLOOD GAS METHEMOGLOBIN 0.4 % (0-2); BLOOD GAS O2 HGB SATURATION 98 % (90-100); BLOOD GAS OXYGEN CONTENT 13.1 Vol % (12.0-20.0); BLOOD GAS PCO2 51 mmHg (38-42); BLOOD GAS PO2 260 mmHG (61-120); BLOOD GAS TOTAL HGB 9.1 G/DL (12.0-16.0); TEMP CORR TO 98.6
[2017-01-02 04:54] LABS: CRITICAL VALUE YES; OXYGEN DEVICE VENTILATOR
[2017-01-02 04:55] LABS: DRAW SITE RT RADIAL; FIO2 100 %; NUMBER OF ARTERIAL PUNCTURES 1; STAT YES; ULNAR PULSE PRESENT
[2017-01-02 04:56] LABS: AUTOMATED NEUTROPHIL # 10.9 TH/MM3 (1.8-7.7); BASOPHIL # 0.1 TH/MM3 (0-0.2); BASOPHIL % 0.6 % (0.0-2.0); EOSINOPHIL # 0.1 TH/MM3 (0-0.4); EOSINOPHIL % 0.4 % (0.0-4.0); HEMATOCRIT 31.9 % (35.0-46.0); HEMO FLAGS DIFF FINAL; LYMPHOCYTE # 2.3 TH/MM3 (1.0-4.8); MEAN CELL VOLUME 83.5 FL (80.0-100.0); MEAN CORPUSCULAR HEMOGLOBIN 24.9 PG (27.0-34.0); MONO % 5.6 % (0.0-8.0); NEUT % 77.4 % (16.0-70.0); PLATELET COUNT 258 TH/MM3 (150-450); RED BLOOD COUNT 3.82 MIL/MM3 (4.00-5.30); RED CELL DISTRIBUTION WIDTH 21.1 % (11.6-17.2); WHITE BLOOD COUNT 14.1 TH/MM3 (4.0-11.0)
[2017-01-02] MEDS: MAGNESIUM SULFATE 1 GM PREMIX 100 ML IV SCH ×2 (04:58→05:57)
[2017-01-02 05:03] LABS: APTT (PATIENT) 22.5 SEC (24.3-30.1); PROTHROMBIN TIME - PATIENT 11.2 SEC (9.8-11.6)
[2017-01-02 05:03] LABS: BLOOD, URINE NEG (NEG); GLUCOSE,URINE NEG (NEG); KETONE, URINE NEG (NEG); MUCUS URINE FEW /lpf (OCC); NITRITE,URINE NEG (NEG); SQUAMOUS EPITHELIAL CELL URINE 1 /hpf (0-5); URINE COLOR YELLOW (YELLW/STRAW)
[2017-01-02 05:04] LABS: COMMENT (UR) CATH-CULT NOT IND; CULTURE IF INDICATED CATH CULTURE NOT IND
[2017-01-02 05:13] LABS: ANION GAP 7 MEQ/L (5-15); AST (GOT) 34 U/L (15-37); BLOOD UREA NITROGEN 20 MG/DL (7-18); CHLORIDE 111 MEQ/L (98-107); GLOMERULAR FILTRATION RATE 41 ML/MIN (>89); MAGNESIUM 2.1 MG/DL (1.5-2.5); POTASSIUM 4.3 MEQ/L (3.5-5.1); SODIUM (NA) 147 MEQ/L (136-145)
[2017-01-02] MEDS ORDERED: AZITHROMYCIN INJ 500 MG in SODIUM CHLOR 0.9% 250 ML INJ 250 ML IV ONE (05:15)
[2017-01-02 05:16] LABS: ALKALINE PHOSPHATASE 102 U/L (45-117); ALT (GPT) 21 U/L (10-53); CREATINE KINASE 82 U/L (26-192); TOTAL BILIRUBIN ADULT 0.8 MG/DL (0.2-1.0)
[2017-01-02] MEDS ORDERED: ONDANSETRON HCL 4 MG/2 ML VIAL IV PRN (05:45)
[2017-01-02] MEDS ORDERED: RESP: ALBUTEROL 2.5 MG/IPRATROPIUM 0.5 MG NEB (PRN) INH (05:45)
[2017-01-02] MEDS ORDERED: ENOXAPARIN SODIUM 40 MG/0.4 ML SYRINGE SQ SCH (05:45)
[2017-01-02] MEDS ORDERED: SENNOSIDES 8.6 MG TAB PO PRN (05:45)
[2017-01-02] MEDS ORDERED: AZTREONAM INJ 2,000 MG in SODIUM CHLORIDE 0.9% INJ 100 ML IV SCH (05:45)
[2017-01-02] MEDS ORDERED: CHLORHEXIDINE GLUCONATE 2 % 1 PACK (2 CLOTHS) TOP PRN ×2 (05:45→08:30)
[2017-01-02] MEDS ORDERED: MISCELLANEOUS NURSING INFORMATION XX SCH ×2 (05:45→08:30)
[2017-01-02] MEDS ORDERED: AZTREONAM INJ 2,000 MG in SODIUM CHLORIDE 0.9% INJ 100 ML IV ONE (05:45)
[2017-01-02] MEDS: SODIUM CHLOR 0.9% 1000 ML INJ 1,000 ML IV SCH ×2 (06:21→21:49)
[2017-01-02] MEDS ORDERED: DEXTROSE 50% IN WATER 50 ML VIAL(D50) IV PRN (08:30)
[2017-01-02] MEDS ORDERED: GLUCAGON 1 MG/ML VIAL OTHER PRN (08:30)
[2017-01-02] MEDS ORDERED: ENOXAPARIN SODIUM 30 MG/0.3 ML SYRINGE SQ SCH (09:00)
--- NOTE | 2017-01-02 09:04 | MH ---
cc: ARNOLDO SMITH M.D. DATE OF ADMISSION: 01/02/2017 DATE OF 1945 HISTORY OF PRESENT ILLNESS The patient is a 71-year-old female with a past medical history of hypertension, hyperlipidemia, diabetes mellitus, atrial fibrillation on Eliquis, COPD, who presented to [facility] ED via EMS with respiratory distress. The patient has been short of breath for the last several days. On EMS arrival she had a GCS score of 8 and she was subsequently intubated with etomidate and Ativan. ABG was performed post intubation which showed acute hypercapnic respiratory failure with a pH of 7.31, CO2 51, pAO2 260, bicarb 25, saturation of 98%. Her laboratory data is significant for leukocytosis with a WBC of 14.1, acute kidney injury with a creatinine level of 1.52 and estimated GFR 41. Her lactic acid level measured at 1.5. Chest x-ray showed interval development of bibasilar mixed interstitial and alveolar process. When seen the patient is intubated and sedated with Diprivan. The patient was placed on broad-spectrum antibiotics. PAST MEDICAL HISTORY Significant for - 1. Hypertension. 2. Diabetes mellitus. 3. Hyperlipidemia. 4. Atrial fibrillation. 5. COPD. PAST SURGICAL HISTORY 1. Previous colon resection. 2. Previous cataract removal, left eye. 3. Previous partial hysterectomy. 4. T&A as a child. SOCIAL HISTORY The patient has history of tobacco, EtOH use. ALLERGIES PENICILLIN. REPORTED MEDICATIONS 1. Amiodarone. 2. Eliquis. 3. Lopressor. 4. Levaquin. 5. On 2 liters oxygen at home. 6. NovoLog insulin. 7. Atorvastatin. 8. Amlodipine. 9. Losartan. 10. Metformin. FAMILY HISTORY Noncontributory. REVIEW OF SYSTEMS As per HPI. The rest of the review of systems is limited as the patient is intubated. PHYSICAL EXAMINATION GENERAL: A 71-year-old female intubated for respiratory failure. VITAL SIGNS: Temperature 97.6, pulse 62, respiratory rate 16, blood pressure 108/68, saturation 98-100%, vent setting PRVC/ assist control mode, rate of 16, tidal volume 500, I-time 1.0, PEEP of 5, FIO2 50%. HEENT: Atraumatic, normocephalic. Pupils equal, round, reactive to accommodation. Extraocular muscles intact. Conjunctivae pink. Nonicteric sclerae. Oral mucosa within normal limits. NECK: Supple. No JVD, adenopathy or thyromegaly. Trachea in midline. Orally intubated. CARDIOVASCULAR EXAM: Regular rate and rhythm. Normal S1-S2. No murmurs, rubs or gallops noted. PULMONARY EXAM; Bilaterally equal air entry, diminished with a few coarse breath sounds. ABDOMEN: Soft, nontender, no distension. Positive bowel sounds. EXTREMITIES: No cyanosis, clubbing, 2+ edema. NEURO: Intubated and sedated. LABORATORY DATA WBC 14.1, hemoglobin 9.5, hematocrit 31, platelet count 258. Sodium 147, potassium 4.3, chloride 29, BUN 20, creatinine 1.52, glucose 114. Troponin 0.06. Total CK 82, AST 34, ALT 21, total bilirubin 0.8, lactic acid 1.5, lipase 139. INR 1.0, PT 11.2, PTT 22.5. Urinalysis negative for leukocyte esterase, negative for nitrite, 4 WBCs. CHEST X-RAY Showed bibasilar mixed interstitial and alveolar process. IMPRESSION 1. Acute hypoxemic and hypercapnic respiratory failure. 2. COPD exacerbation. 3. Bibasilar mixed interstitial and alveolar process. Differential diagnosis is infectious process versus chronic lung disease with a previous history of amiodarone. 4. Paroxysmal atrial fibrillation on Eliquis. 5. Diabetes mellitus. 6. Hypertension. 7. Hyperlipidemia. 8. Leukocytosis. 9. Anemia. 10. Acute kidney injury. 11. Mild elevation in troponin. RECOMMENDATIONS 1. Continue Diprivan infusion for sedation and daily sedation vacation when appropriate. 2. Continue vent support and maintain sats above 92%. 3. Bronchodilators in the form of DuoNeb q. [address] on IV steroids, Solu-Medrol 60 mg IV q. 8. 4. We will proceed with CT scan of the chest without contrast for further evaluation of pulmonary parenchyma. Repeat ABG now. 5. Monitor heart rate and blood pressure closely and maintain MAP above 65 mmHg. Hold antihypertensive meds. Lactic acid level measured at 1.5. Echocardiogram from November showed an EF of 60-65% with no regional wall motion abnormalities and pulmonary hypertension with a PA pressure of 59 mmHg. 6. Monitor renal function Is and Os and electrolyte replacement as needed. Continue with IV hydration NS at 75 mL/hour. 7. Continue with Pepcid 10 mg IV q. 12-hours for GI prophylaxis and start nutrition support in the form of tube feeds, Glucerna 1.5 with goal rate of 45 mL/hour. Monitor for residuals. 8. Continue with broad-spectrum antibiotics in the form of aztreonam and azithromycin. Of note the patient is ALLERGIC TO PENICILLIN. Monitor for signs of infections which include fever and WBC. Follow up on blood cultures. Her nasal aspirate is negative for influenza. We will check sputum culture and check Strep pneumonia and Legionella urinary antigen. 9. Monitor CBC and coags. 10. Place on sliding scale insulin low scale with Accu-Chek q. 6-hours for glycemic control as the patient will be on IV steroids. 11. GI prophylaxis with Pepcid 10 mg IV q. 12 and DVT prophylaxis with SCDs and will resume Eliquis 5 mg p.o. b.i.d. her home med. 12. Further recommendations will be based on her hospital course. CRITICAL CARE TIME 35 minutes excluding procedures. MD ROSHAN Winslow/KRYSTEN /8:33 AM /8:48 AM
[2017-01-02 09:29] LABS: BLOOD GAS BASE EXCESS -1.2 mmol/L (-2-2); BLOOD GAS CARBOXYHEMOGLOBIN 1.8 % (0-4); BLOOD GAS HCO3 23 mmol/L (22-26); BLOOD GAS METHEMOGLOBIN 1.2 % (0-2); BLOOD GAS O2 HGB SATURATION 86 % (90-100); BLOOD GAS OXYGEN CONTENT 11.8 Vol % (12.0-20.0); BLOOD GAS PCO2 40 mmHg (38-42); BLOOD GAS PO2 58 mmHg (61-120); BLOOD GAS TOTAL HGB 9.7 G/DL (12.0-16.0); TEMP CORR TO 98.6
[2017-01-02 09:30] LABS: CRITICAL VALUE YES; OXYGEN DEVICE VENTILATOR
[2017-01-02 09:31] LABS: DRAW SITE RT RADIAL; FIO2 40 %; NUMBER OF ARTERIAL PUNCTURES 1; STAT NO; ULNAR PULSE PRESENT; VENT SETTINGS PRVC/AC
[2017-01-02] MEDS: RESP: ALBUTEROL 2.5 MG/IPRATROPIUM 0.5 MG NEB (SCH) INH ×3 (09:45→20:07)
[2017-01-02] MEDS: FAMOTIDINE 20 MG/2 ML VIAL IV PUSH SCH ×2 (10:01→21:31)
[2017-01-02] MEDS: methylPREDNISolone SOD SUCC 40 MG/1 ML VIAL IV PUSH SCH ×3 (10:01→21:28)
[2017-01-02] MEDS: APIXABAN 5 MG TABLET PO SCH ×2 (10:01→21:24)
--- NOTE | 2017-01-02 11:50 | RADRPT ---
EXAM DATE/TIME: 01/02/2017 11:08 [facility] COMPARISON: CTA THORACIC ABDOMINAL AORTA W 3D RECON, November 21, 2016, 0:24. INDICATIONS : Evaluate for bibasilar infiltrates. RADIATION DOSE: 5.94 CTDIvol (mGy) MEDICAL HISTORY : Chronic obstructive pulmonary disease. Hypertension. Diabetes mellitus type 1. cardiac SURGICAL HISTORY : Colon resection. Hysterectomy. ENCOUNTER: Initial ACUITY: 1 day PAIN SCALE: Non-responsive LOCATION: chest TECHNIQUE: Volumetric scanning of the chest was performed. Using automated exposure control and adjustment of t he mA and/or kV according to patient size, radiation dose was kept as low as reasonably achievable to obtain optimal diagnostic quality images. FINDINGS: There is respiratory motion artifact. LUNGS: There is mild centrilobular emphysema. In the lower lobes there is compressive atelectasis and mild c onsolidation, left greater than right. No pneumothorax is present. There are small bilateral pleural effusions, right larger than left. PLEURAE: Small bilateral simple appearing pleural effusions, right larger than left. These are new compared to the CT from one month ago. MEDIASTINUM: There is coronary artery calcification and moderate atherosclerotic disease of the aorta. Main pulmon lucita artery is enlarged measuring 4 cm and the central left and right pulmonary arteries are also enla rged. There are enlarged lymph nodes in the mediastinum with an enlarged pretracheal lymph node measu ring 17 mm in short axis diameter. There is also a mildly enlarged left paratracheal and subcarinal l ymph node as well. These are stable from the prior study. Endotracheal tube and nasogastric tube are present. AXILLAE: Within normal limits. No lymphadenopathy. MUSCULOSKELETAL: There are degenerative changes of the thoracic spine. MISCELLANEOUS: The visualized upper abdominal organs demonstrate no acute abnormality. However, there is a stable hy perdense 17 mm exophytic lesion arising from the left mid to lower pole kidney. CONCLUSION: 1. Examination quality degraded by respiratory motion artifact. There are small bilateral pleural eff usions, right larger than left with associated compressive atelectasis along with consolidation in mary th lower lobes. 2. Stable mediastinal lymphadenopathy from uncertain etiology. 3. Stable enlargement of the upper pulmonary arteries which may indicate pulmonary tear hypertension. 4. One month stable 17 mm hyperdense left renal lesion. Suggest correlation with older examinations w [facility] could further characterize or document longer term stability. If none are available consider ciera al protocol CT or MRI when the patient's condition permits for a high quality exam. Jasper Goldsmith MD on January 02, 2017 at 11:41 Board Certified Radiologist. This report was verified electronically.
[2017-01-02] MEDS: INSULIN NovoLIN REGULAR SUPPLEMENTAL SCALE SQ SCH ×3 (12:00→21:00)
[2017-01-02] MEDS: AZTREONAM 1,000 MG/NS 100 ML IV SCH ×4 (14:00→21:26)
[2017-01-02 14:28] LABS: AUTOMATED NEUTROPHIL # 8.8 TH/MM3 (1.8-7.7); BASOPHIL % 0.3 % (0.0-2.0); HEMATOCRIT 33.4 % (35.0-46.0); HEMO FLAGS DIFF FINAL; LYMPH % 4.3 % (9.0-44.0); LYMPHOCYTE # 0.4 TH/MM3 (1.0-4.8); MEAN CELL VOLUME 83.6 FL (80.0-100.0); MEAN CORPUSCULAR HGB CONC 31.1 % (32.0-36.0); MONO % 3.1 % (0.0-8.0); NEUT % 92.3 % (16.0-70.0); PLATELET COUNT 227 TH/MM3 (150-450); RED CELL DISTRIBUTION WIDTH 21.7 % (11.6-17.2); WHITE BLOOD COUNT 9.6 TH/MM3 (4.0-11.0)
[2017-01-02 15:04] LABS: POTASSIUM 3.9 MEQ/L (3.5-5.1)
--- NOTE | 2017-01-02 15:41 | EKG ---
Date Performed: 01/02/2017 Time Performed: 04:11:54 PTAGE: 71 years EKG: Sinus rhythm PROLONGED QT INTERVAL When compared to previous tracing, patient is now converted to Sinus rhythm. A BNORMAL ECG PREVIOUS TRACING : 11/23/2016 [id number] DOCTOR: Barak Joya Interpretating Date/Time 01/02/2017 15:41:08
[2017-01-02] MEDS: PROPOFOL 1000 MG/100 ML INJ 100 ML IV SCH (21:49)
[2017-01-03] VITALS (18 sets, daily range): BP systolic 94–132; BP diastolic 55–66; PULSE 64–103; RESP 16–18; TEMP 98.3–99.4; O2SAT 94–100
[2017-01-03] MEDS: INSULIN NovoLIN REGULAR SUPPLEMENTAL SCALE SQ SCH ×4 (03:00→20:38)
[2017-01-03] MEDS: RESP: ALBUTEROL 2.5 MG/IPRATROPIUM 0.5 MG NEB (SCH) INH ×4 (03:42→20:47)
[2017-01-03] MEDS ORDERED: CHLORHEXIDINE GLUCONATE 2 % 1 PACK (2 CLOTHS) TOP SCH (04:00)
[2017-01-03] MEDS: CHLORHEXIDINE GLUCONATE 2 % 1 PACK (2 CLOTHS) TOP SCH (04:00)
[2017-01-03] MEDS: PROPOFOL 1000 MG/100 ML INJ 100 ML IV SCH ×3 (04:20→20:45)
[2017-01-03 04:27] LABS: BASOPHIL % 0.4 % (0.0-2.0); EOSINOPHIL % 0.1 % (0.0-4.0); HEMATOCRIT 31.2 % (35.0-46.0); HEMO FLAGS DIFF FINAL; LYMPHOCYTE # 0.3 TH/MM3 (1.0-4.8); MEAN CELL VOLUME 82.4 FL (80.0-100.0); MEAN CORPUSCULAR HEMOGLOBIN 25.4 PG (27.0-34.0); MEAN CORPUSCULAR HGB CONC 30.8 % (32.0-36.0); MONO % 3.5 % (0.0-8.0); PLATELET COUNT 207 TH/MM3 (150-450); RED BLOOD COUNT 3.78 MIL/MM3 (4.00-5.30); RED CELL DISTRIBUTION WIDTH 21.4 % (11.6-17.2); WHITE BLOOD COUNT 9.7 TH/MM3 (4.0-11.0)
[2017-01-03 04:55] LABS: ANION GAP 11 MEQ/L (5-15); AST (GOT) 29 U/L (15-37); BICARBONATE 23.7 MEQ/L (21.0-32.0); BLOOD UREA NITROGEN 29 MG/DL (7-18); CHLORIDE 110 MEQ/L (98-107); GLOMERULAR FILTRATION RATE 44 ML/MIN (>89); MAGNESIUM 2.5 MG/DL (1.5-2.5); POTASSIUM 3.9 MEQ/L (3.5-5.1); SODIUM (NA) 145 MEQ/L (136-145)
[2017-01-03 04:57] LABS: ALKALINE PHOSPHATASE 95 U/L (45-117); ALT (GPT) 29 U/L (10-53); TOTAL BILIRUBIN ADULT 0.5 MG/DL (0.2-1.0)
[2017-01-03] MEDS: methylPREDNISolone SOD SUCC 40 MG/1 ML VIAL IV PUSH SCH ×2 (06:00→14:51)
[2017-01-03] MEDS: AZTREONAM 1,000 MG/NS 100 ML IV SCH ×6 (06:22→22:49)
[2017-01-03] MEDS: AZITHROMYCIN INJ 500 MG in SODIUM CHLOR 0.9% 250 ML INJ 250 ML IV SCH (06:23)
[2017-01-03] MEDS ORDERED: GLUCAGON 1 MG/ML VIAL OTHER PRN (08:15)
[2017-01-03] MEDS ORDERED: DEXTROSE 50% IN WATER 50 ML VIAL(D50) IV PRN (08:15)
--- NOTE | 2017-01-03 08:17 | HHI.CCPN ---
Subjective Remarks/Hospital Course The patient is a 71-year-old female with a past medical history of hypertension , hyperlipidemia, diabetes mellitus, atrial fibrillation on Eliquis, COPD, who presented to [facility] ED via EMS with respiratory distress. The patient has been short of breath for the last several days. On EMS arrival she had a GCS score of 8 and she was subsequently intubated with etomidate and Ativan. ABG was performed post intubation which showed acute hypercapnic respiratory failure with a pH of 7.31, CO2 51, pAO2 260 , bicarb 25, saturation of 98%. Her laboratory data is significant for leukocytosis with a WBC of 14.1, acute kidney injury with a creatinine level of 1.52 and estimated GFR 41. Her lactic acid level measured at 1.5. Chest x-ray showed interval development of bibasilar mixed interstitial and alveolar process. When seen the patient is intubated and sedated with Diprivan. The patient was placed on broad-spectrum antibiotics. 01/01 Patient is sedated with Diprivan and intubated. Afebrile. Objective Vital Signs Date Time Temp Pulse Resp B/P Pulse Ox O2 Delivery O2 Flow Rate FiO2 01/03/17 07:48 96 40 01/03/17 06:00 94 01/03/17 04:00 98.6 16 131/64 01/02/17 06:00 Ventilator Intake and Output 01/02/17 01/02/17 01/03/17 08:00 16:00 00:00 Intake Total 1028 ml 1162 ml Output Total 526 ml 625 ml Balance 502 ml 537 ml Result Diagram: 01/03/17 0408 01/03/17 0408 Other Results Laboratory Tests Test 01/02/17 01/02/17 01/03/17 09:15 14:02 04:08 Blood Gas Puncture Site RT RADIAL Blood Gas Patient Temperature 98.6 Blood Gas HCO3 23 mmol/L Blood Gas Base Excess -1.2 mmol/L Blood Gas Oxygen Saturation 86 % Arterial Blood pH 7.38 Arterial Blood Partial 40 mmHg Pressure CO2 Arterial Blood Partial 58 mmHg Pressure O2 Arterial Blood Oxygen Content 11.8 Vol % Arterial Blood 1.8 % Carboxyhemoglobin Arterial Blood Methemoglobin 1.2 % Blood Gas Hemoglobin 9.7 G/DL Oxygen Delivery Device VENTILATOR Blood Gas Ventilator Setting PRVC/AC Blood Gas Inspired Oxygen 40 % White Blood Count 9.6 TH/MM3 9.7 TH/MM3 Red Blood Count 4.00 MIL/MM3 3.78 MIL/MM3 Hemoglobin 10.4 GM/DL 9.6 GM/DL Hematocrit 33.4 % 31.2 % Mean Corpuscular Volume 83.6 FL 82.4 FL Mean Corpuscular Hemoglobin 26.0 PG 25.4 PG Mean Corpuscular Hemoglobin 31.1 % 30.8 % Concent Red Cell Distribution Width 21.7 % 21.4 % Platelet Count 227 TH/MM3 207 TH/MM3 Mean Platelet Volume 8.6 FL 8.6 FL Neutrophils (%) (Auto) 92.3 % 93.0 % Lymphocytes (%) (Auto) 4.3 % 3.0 % Monocytes (%) (Auto) 3.1 % 3.5 % Eosinophils (%) (Auto) 0.0 % 0.1 % Basophils (%) (Auto) 0.3 % 0.4 % Neutrophils # (Auto) 8.8 TH/MM3 9.0 TH/MM3 Lymphocytes # (Auto) 0.4 TH/MM3 0.3 TH/MM3 Monocytes # (Auto) 0.3 TH/MM3 0.3 TH/MM3 Eosinophils # (Auto) 0.0 TH/MM3 0.0 TH/MM3 Basophils # (Auto) 0.0 TH/MM3 0.0 TH/MM3 CBC Comment DIFF FINAL DIFF FINAL Differential Comment Sodium Level 144 MEQ/L 145 MEQ/L Potassium Level 3.9 MEQ/L 3.9 MEQ/L Chloride Level 109 MEQ/L 110 MEQ/L Carbon Dioxide Level 26.0 MEQ/L 23.7 MEQ/L Anion Gap 9 MEQ/L 11 MEQ/L Blood Urea Nitrogen 23 MG/DL 29 MG/DL Creatinine 1.26 MG/DL 1.41 MG/DL Estimat Glomerular Filtration 51 ML/MIN 44 ML/MIN Rate Random Glucose 140 MG/DL 240 MG/DL Calcium Level 9.2 MG/DL 9.0 MG/DL Troponin I 0.06 NG/ML Phosphorus Level 4.2 MG/DL Magnesium Level 2.5 MG/DL Total Bilirubin 0.5 MG/DL Aspartate Amino Transf 29 U/L (AST/SGOT) Alanine Aminotransferase 29 U/L (ALT/SGPT) Alkaline Phosphatase 95 U/L Total Protein 6.2 GM/DL Albumin 2.7 GM/DL Imaging Last Impressions Chest X-Ray 01/02/17 0420 Signed Impressions: Service Date/Time: Monday, January 02, 2017 04:34 - CONCLUSION: Interval development of bibasilar mixed interstitial and alveolar process. Jason Crisostomo MD Chest CT 01/02/17 0000 Signed Impressions: Service Date/Time: Monday, January 02, 2017 11:08 - CONCLUSION: 1. Examination quality degraded by respiratory motion artifact. There are small bilateral pleural effusions, right larger than left with associated compressive atelectasis along with consolidation in both lower lobes. 2. Stable mediastinal lymphadenopathy from uncertain etiology. 3. Stable enlargement of the upper pulmonary arteries which may indicate pulmonary tear hypertension. 4. One month stable 17 mm hyperdense left renal lesion. Suggest correlation with older examinations which could further characterize or document longer term stability. If none are available consider renal protocol CT or MRI when the patient's condition permits for a high quality exam. Jasper Goldsmith MD Objective Remarks GENERAL: Patint is 71 yo intubated and sedated SKIN: Warm and dry. HEAD: Normocephalic. EYES: No scleral icterus. No injection or drainage. NECK: Supple, trachea midline. No JVD or lymphadenopathy. CARDIOVASCULAR: Regular rate and rhythm without murmurs, gallops, or rubs. RESPIRATORY: Breath sounds equal bilaterally. No accessory muscle use. GASTROINTESTINAL: Abdomen soft, non-tender, nondistended. MUSCULOSKELETAL: No cyanosis, + +edema. Neuro: Sedated A/P Assessment and Plan 1. Acute hypoxemic and hypercapnic respiratory failure. 2. COPD exacerbation. 3. Bibasilar mixed interstitial and alveolar process. 4. Paroxysmal atrial fibrillation on Eliquis. 5. Diabetes mellitus. 6. Hypertension. 7. Hyperlipidemia. 8. Leukocytosis. 9. Anemia. 10. Acute kidney injury. 11. Mild elevation in troponin. Plan Neuro: On Diprivan infusion for sedation. Daily sedation vacation Pulm: Continue vent support and maintain sats above 92%. Bronchodilators, decrease Solu-Medrol 40 mg IV q. 12. Start SBT daily as tanisha CV: Monitor HR and BP and maintain MAP> 65 mmHg. Lactic acid level measured at 1.5. Echo from November showed EF of 60-65% , no RWMA and pulmonary hypertension with a PA pressure of 59 mmHg. : Monitor renal function Is and Os and electrolyte replacement as needed. On NS at 75 mL/hour. Cr: 1.41 from 1.26. GI: On Pepcid 10 mg IV q. 12-hours for GI prophylaxis tube feeds with Glucerna 1.5 with goal rate of 45 mL/hour. Monitor for residuals. ID: Continue with abx(aztreonam and azithromycin) Monitor for signs of infections(fever and WBC). Follow up on blood cultures. Nasal aspirate is negative for influenza. Follow up on sputum culture. Strep pneumonia and Legionella urinary antigen negative. Heme: Monitor CBC and coags. Endo: Increase SSI to medium scale and add Levemir 7units Q12 for glycemic control GI prophylaxis with Pepcid 10 mg IV q. 12 and DVT prophylaxis with SCDs and Eliquis 5 mg p.o. b.i.d. Level 3 Oh Gaming MD January 03, 2017 08:17
[2017-01-03] MEDS: APIXABAN 5 MG TABLET PO SCH ×2 (09:11→20:37)
[2017-01-03] MEDS: FAMOTIDINE 20 MG/2 ML VIAL IV PUSH SCH ×2 (09:11→20:37)
[2017-01-03] MEDS: SODIUM CHLOR 0.9% 1000 ML INJ 1,000 ML IV SCH (09:12)
[2017-01-03] MEDS ORDERED: BUMETANIDE INJ 1 MG/4 ML VIAL IV PUSH ONE (17:00)
[2017-01-03] MEDS ORDERED: INSULIN DETEMIR 100 UNITS/ML VIAL SQ SCH (21:00)
[2017-01-03] MEDS ORDERED: methylPREDNISolone SOD SUCC 40 MG/1 ML VIAL IV PUSH SCH (21:00)
[2017-01-04] VITALS (19 sets, daily range): BP systolic 107–157; BP diastolic 55–77; PULSE 65–129; RESP 16–18; TEMP 98.1–98.9; O2SAT 95–100
[2017-01-04] MEDS: PROPOFOL 1000 MG/100 ML INJ 100 ML IV SCH ×5 (01:24→22:40)
[2017-01-04] MEDS: INSULIN NovoLIN REGULAR SUPPLEMENTAL SCALE SQ SCH ×4 (03:00→20:30)
[2017-01-04] MEDS: RESP: ALBUTEROL 2.5 MG/IPRATROPIUM 0.5 MG NEB (SCH) INH ×4 (03:32→20:24)
[2017-01-04] MEDS: CHLORHEXIDINE GLUCONATE 2 % 1 PACK (2 CLOTHS) TOP SCH (03:36)
[2017-01-04] MEDS: AZITHROMYCIN INJ 500 MG in SODIUM CHLOR 0.9% 250 ML INJ 250 ML IV SCH (05:39)
[2017-01-04] MEDS: AZTREONAM 1,000 MG/NS 100 ML IV SCH ×6 (05:39→22:39)
--- NOTE | 2017-01-04 05:54 | RADRPT ---
EXAM DATE/TIME: 01/04/2017 05:02 [facility] COMPARISON: CHEST SINGLE AP, January 02, 2017, 4:34. INDICATIONS : Shortness of breath, possible pulmonary disease. MEDICAL HISTORY : Hypertension. Diabetes mellitus type II. SURGICAL HISTORY : None. ENCOUNTER: Subsequent ACUITY: 3 days PAIN SCORE: Non-responsive. LOCATION: Bilateral chest FINDINGS: A single view of the chest demonstrates the endotracheal, nasogastric tube are both in good position. Persistent small bilateral pleural effusion with some basilar consolidations. No visible pneumothora x.. The cardiomediastinal contours are unremarkable. Osseous structures are intact. CONCLUSION: Stable bibasilar infiltrates. Endotracheal tube in good position. Yuniel Dawson MD on January 04, 2017 at 5:52 Board Certified Radiologist. This report was verified electronically.
[2017-01-04 07:25] LABS: AUTOMATED NEUTROPHIL # 14.7 TH/MM3 (1.8-7.7); BASOPHIL % 0.3 % (0.0-2.0); EOSINOPHIL % 0.1 % (0.0-4.0); HEMATOCRIT 32.6 % (35.0-46.0); HEMO FLAGS DIFF FINAL; LYMPH % 1.9 % (9.0-44.0); LYMPHOCYTE # 0.3 TH/MM3 (1.0-4.8); MEAN CORPUSCULAR HEMOGLOBIN 25.7 PG (27.0-34.0); MONO % 5.2 % (0.0-8.0); NEUT % 92.5 % (16.0-70.0); PLATELET COUNT 250 TH/MM3 (150-450); RED BLOOD COUNT 3.93 MIL/MM3 (4.00-5.30); RED CELL DISTRIBUTION WIDTH 21.9 % (11.6-17.2); WHITE BLOOD COUNT 15.9 TH/MM3 (4.0-11.0)
[2017-01-04 07:51] LABS: POTASSIUM 4.6 MEQ/L (3.5-5.1)
[2017-01-04 07:52] LABS: BICARBONATE 23.9 MEQ/L (21.0-32.0)
[2017-01-04] MEDS ORDERED: BUMETANIDE INJ 1 MG/4 ML VIAL IV PUSH ONE (08:15)
--- NOTE | 2017-01-04 08:31 | HHI.CCPN ---
Subjective Remarks/Hospital Course The patient is a 71-year-old female with a past medical history of hypertension , hyperlipidemia, diabetes mellitus, atrial fibrillation on Eliquis, COPD, who presented to [facility] ED via EMS with respiratory distress. The patient has been short of breath for the last several days. On EMS arrival she had a GCS score of 8 and she was subsequently intubated with etomidate and Ativan. ABG was performed post intubation which showed acute hypercapnic respiratory failure with a pH of 7.31, CO2 51, pAO2 260 , bicarb 25, saturation of 98%. Her laboratory data is significant for leukocytosis with a WBC of 14.1, acute kidney injury with a creatinine level of 1.52 and estimated GFR 41. Her lactic acid level measured at 1.5. Chest x-ray showed interval development of bibasilar mixed interstitial and alveolar process. When seen the patient is intubated and sedated with Diprivan. The patient was placed on broad-spectrum antibiotics. 01/03 Patient is sedated with Diprivan and intubated. Afebrile. 01/04 Patient remains sedated and intubated. Afebrile. Tolerated CPAP only for 1 hr yesterday then became tachypneic. Objective Vital Signs Date Time Temp Pulse Resp B/P Pulse Ox O2 Delivery O2 Flow Rate FiO2 01/04/17 06:00 93 01/04/17 04:11 96 40 01/04/17 04:00 98.1 16 119/63 01/02/17 06:00 Ventilator Intake and Output 01/03/17 01/03/17 01/04/17 08:00 16:00 00:00 Intake Total 935 ml 1580 ml 1175 ml Output Total 200 ml 150 ml 450 ml Balance 735 ml 1430 ml 725 ml Result Diagram: 01/04/17 0606 01/04/17 0000 Other Results Laboratory Tests Test 01/04/17 01/04/17 00:00 06:06 Sodium Level 142 MEQ/L Potassium Level 4.6 MEQ/L Chloride Level 109 MEQ/L Carbon Dioxide Level 23.9 MEQ/L Anion Gap 9 MEQ/L Blood Urea Nitrogen 44 MG/DL Creatinine 1.73 MG/DL Estimat Glomerular Filtration 35 ML/MIN Rate Random Glucose 360 MG/DL Calcium Level 8.8 MG/DL White Blood Count 15.9 TH/MM3 Red Blood Count 3.93 MIL/MM3 Hemoglobin 10.1 GM/DL Hematocrit 32.6 % Mean Corpuscular Volume 83.0 FL Mean Corpuscular Hemoglobin 25.7 PG Mean Corpuscular Hemoglobin 31.0 % Concent Red Cell Distribution Width 21.9 % Platelet Count 250 TH/MM3 Mean Platelet Volume 9.0 FL Neutrophils (%) (Auto) 92.5 % Lymphocytes (%) (Auto) 1.9 % Monocytes (%) (Auto) 5.2 % Eosinophils (%) (Auto) 0.1 % Basophils (%) (Auto) 0.3 % Neutrophils # (Auto) 14.7 TH/MM3 Lymphocytes # (Auto) 0.3 TH/MM3 Monocytes # (Auto) 0.8 TH/MM3 Eosinophils # (Auto) 0.0 TH/MM3 Basophils # (Auto) 0.0 TH/MM3 CBC Comment DIFF FINAL Differential Comment Imaging Last Impressions Chest X-Ray 01/04/17 0400 Signed Impressions: Service Date/Time: December 05:02 - CONCLUSION: Stable bibasilar infiltrates. Endotracheal tube in good position. Yuniel Dawson MD Chest CT 01/02/17 0000 Signed Impressions: Service Date/Time: Monday, January 02, 2017 11:08 - CONCLUSION: 1. Examination quality degraded by respiratory motion artifact. There are small bilateral pleural effusions, right larger than left with associated compressive atelectasis along with consolidation in both lower lobes. 2. Stable mediastinal lymphadenopathy from uncertain etiology. 3. Stable enlargement of the upper pulmonary arteries which may indicate pulmonary tear hypertension. 4. One month stable 17 mm hyperdense left renal lesion. Suggest correlation with older examinations which could further characterize or document longer term stability. If none are available consider renal protocol CT or MRI when the patient's condition permits for a high quality exam. Jasepr Goldsmith MD Objective Remarks GENERAL: Patint is 71 yo intubated and sedated SKIN: Warm and dry. HEAD: Normocephalic. EYES: No scleral icterus. No injection or drainage. NECK: Supple, trachea midline. No JVD or lymphadenopathy. CARDIOVASCULAR: Regular rate and rhythm without murmurs, gallops, or rubs. RESPIRATORY: Breath sounds equal bilaterally. No accessory muscle use. GASTROINTESTINAL: Abdomen soft, non-tender, nondistended. MUSCULOSKELETAL: No cyanosis, + +edema. Neuro: Sedated A/P Assessment and Plan 1. Acute hypoxemic and hypercapnic respiratory failure. 2. COPD exacerbation. 3. Bibasilar mixed interstitial and alveolar process. 4. Paroxysmal atrial fibrillation on Eliquis. 5. Diabetes mellitus. 6. Hypertension. 7. Hyperlipidemia. 8. Leukocytosis. 9. Anemia. 10. Acute kidney injury. 11. Mild elevation in troponin. Plan Neuro: On Diprivan infusion for sedation. Daily sedation vacation Pulm: Continue vent support and maintain sats above 92%. Bronchodilators, decrease Solu-Medrol 40 mg IV q. daily SBT daily as tanisha CV: Place on Lopressor 50mg BID- Monitor HR and BP and maintain MAP> 65 mmHg. Lactic acid level measured at 1.5. Echo from November showed EF of 60-65% , no RWMA and pulmonary hypertension with a PA pressure of 59 mmHg. : Monitor renal function Is and Os and electrolyte replacement as needed. On NS at 75 mL/hour. Cr: 1.73 today from 1.41 , UO: 950ml in 24 hrs, check renal US. GI: On Pepcid 10 mg IV q. 12-hours for GI prophylaxis tube feeds with Glucerna 1.5 with goal rate of 45 mL/hour. Monitor for residuals. ID: Continue with abx(aztreonam and azithromycin) Monitor for signs of infections(fever and WBC). Nasal aspirate is negative for influenza. 01/02 sputum culture.. nl resp maria esther. 01/02 BC: NGTD Strep pneumonia and Legionella urinary antigen negative. Heme: Monitor CBC and coags. Endo: On medium ISS, increase Levemir 12units Q12 for glycemic control GI prophylaxis with Pepcid 10 mg IV q. 12 and DVT prophylaxis with SCDs and Eliquis 5 mg p.o. b.i.d. Level 3 Oh Gaming MD January 04, 2017 08:31
[2017-01-04] MEDS: INSULIN DETEMIR 100 UNITS/ML VIAL SQ SCH ×2 (09:00→20:29)
[2017-01-04] MEDS: METOPROLOL TARTRATE 50 MG TAB PO SCH ×2 (09:00→20:28)
[2017-01-04] MEDS: APIXABAN 5 MG TABLET PO SCH ×2 (09:25→20:29)
[2017-01-04] MEDS: methylPREDNISolone SOD SUCC 40 MG/1 ML VIAL IV PUSH SCH (09:30)
[2017-01-04] MEDS: hydrALAZINE HCL 20 MG/ML VIAL IV PUSH PRN (09:51)
[2017-01-04] MEDS: FAMOTIDINE 20 MG/2 ML VIAL IV PUSH SCH ×2 (10:01→20:28)
[2017-01-04] MEDS: SODIUM CHLOR 0.9% 1000 ML INJ 1,000 ML IV SCH (14:39)
[2017-01-04 15:15] LABS: BLOOD GAS BASE EXCESS -1.2 mmol/L (-2-2); BLOOD GAS CARBOXYHEMOGLOBIN 1.4 % (0-4); BLOOD GAS HCO3 22 mmol/L (22-26); BLOOD GAS METHEMOGLOBIN 1.4 % (0-2); BLOOD GAS O2 HGB SATURATION 93 % (90-100); BLOOD GAS OXYGEN CONTENT 12.6 Vol % (12.0-20.0); BLOOD GAS PCO2 33 mmHg (38-42); BLOOD GAS PO2 83 mmHg (61-120); BLOOD GAS TOTAL HGB 9.5 G/DL (12.0-16.0); CRITICAL VALUE NO; OXYGEN DEVICE VENTILATOR; TEMP CORR TO 98.6
[2017-01-04 15:16] LABS: DRAW SITE LT RADIAL; FIO2 40 %; NUMBER OF ARTERIAL PUNCTURES 1; STAT NO; ULNAR PULSE PRESENT
--- NOTE | 2017-01-04 15:49 | RADRPT ---
EXAM DATE/TIME: 01/04/2017 11:21 [facility] COMPARISON: No previous studies available for comparison. INDICATIONS : Acute kidney injury. MEDICAL HISTORY : Congestive heart failure. Hypercholesterolemia. Emphysema. Glaucoma. Migraines. HTN. COPD. Dyspnea. P nacreatitis. Adrenal mass. GERD. Renal insufficiency. Arhtritis. Diabetes. Thrombocytopenia. Colon ca ncer. PTSD. Anticoagulant therapy. SURGICAL HISTORY : Tonsillectomy. Hysterectomy. Left cataract. Adenoidectomy. Colon resection. ENCOUNTER: Initial ACUITY: 1 day PAIN SCORE: Nonresponsive. LOCATION: Bilateral flank MEASUREMENTS: RIGHT KIDNEY: 11.2 x 4.8 x 5.9 cm LEFT KIDNEY: 9.5 x 5.0 x 5.6 cm FINDINGS: RIGHT KIDNEY: Renal cortex is normal in thickness and echotexture. No hydronephrosis, stone, or mass. LEFT KIDNEY: Renal cortex is normal in thickness and echotexture. No hydronephrosis, stone, or mass. BLADDER: Decompressed with Yañez catheter CONCLUSION: Unremarkable sonographic appearance of the kidneys Jasper Snyder MD on January 04, 2017 at 15:46 Board Certified Radiologist. This report was verified electronically.
--- NOTE | 2017-01-04 20:15 | MB ---
cc: Bessie CARNEY M.D. DATE OF CONSULTATION 01/04/17 REASON FOR CONSULTATION Respiratory failure and pneumonia. HISTORY OF PRESENT ILLNESS This is a 71-year-old lady who has been admitted through the emergency room with a history of shortness of breath of a week's duration. The patient apparently was in severe respiratory distress and [facility] arrived at her residence and she had a GCS score of 8 and had to be intubated and sedated. Initial blood gas post intubation showed hypercapnia with hypoxemia. The patient was placed on ventilator support and has been now in the intensive care unit for the past two days and attempts were made to wean her to C-PAP, but she failed these C-PAP trials. The patient is partially sedated but does respond and assisting the ventilator and presently on FIO2 of 40% maintaining a saturation of 96%. Tracheal secretions are slightly yellow. She has had no vomiting or aspiration, but the chest x-ray showed bibasilar pulmonary infiltrates, more so on the right side, with atelectatic changes. She did receive a diuretic as well with good response. PAST MEDICAL HISTORY 1. History of hypertension, 2. History of diabetes mellitus type 2. 3. History of chronic atrial fibrillation 4. Hyperlipidemia 5. History of COPD PAST SURGICAL HISTORY 1. Colon resection, 2. Partial hysterectomy, 3. History of cataract surgery and implant of the left eye 4. Tonsillectomy remotely. HABITS The patient did have a history of smoking for over 30 years, a pack a day. Occasional alcohol use. ALLERGIES PENICILLIN MEDICATIONS 1. Lopressor 2. Eliquis 3. Amiodarone 4. Levaquin 5. Atorvastatin 6. Amlodipine 7. Losartan 8. Metformin 9. Home oxygen. FAMILY HISTORY Essentially noncontributory REVIEW OF SYSTEMS The patient is intubated, unable to respond. PHYSICAL EXAMINATION GENERAL: This is an averagely built elderly lady who is intubated orally assisting the ventilator. VITAL SIGNS: Blood pressure 126/70, pulse is 65, respirations 20, temperature 97.6. HEENT: Head normocephalic. Pupils are reactive. Throat was clear. Ears no inflammation. NECK: Supple. No bruits or thyroid enlargement. CHEST: Distant breath sounds with occasional expiratory wheezes bilaterally. Bibasilar crackles are heard. HEART: Heart sounds are irregularly irregular, S1-S2 with no murmur. No S3. ABDOMEN: Abdomen is soft, benign. No masses, no organomegaly or tenderness. Bowel sounds are active. EXTREMITIES: No edema. Peripheral pulses are diminished. NEUROLOGIC: Reflexes are 1+. The patient is sedated and unable to respond. Babinski negative. RECTAL: Exam is deferred. SKIN: Dry and cool. IMPRESSION 1. Acute hypercapnic respiratory failure. 2. Basilar pneumonia with possible mild pulmonary edema. 3. COPD with acute exacerbation 4. Diabetes mellitus 5. Hypertension and hyperlipidemia 6. Acute kidney injury PLAN The patient is presently on FIO2 of 40%. We will increase the PEEP to 8 and try to wean the FIO2 to keep sats greater than 92. Blood gas studies will be repeated. Sedation will be weaned down and hopefully we can get her the C-PAP in the a.m. and repeat her blood gases with respiratory parameters. The patient will be started on tube feedings as well at 40 cc/hour. Continue broad-spectrum antibiotic coverage including aztreonam 1 gram every eight hours and Zithromax 500 mg IV daily. The patient will have nebulized DuoNeb solution added q.6 h and Solu-Medrol 40 mg b.i.d. A follow up chest x-ray to be done in the a.m. Cultures from the tracheal aspirate with gram stain and urine for pneumococcal and Legionella antigen. Thank you, Dr. Gaming, for this consultation. MD RUSTAM Jeronimo/ /6:51 PM /7:59 PM
[2017-01-05] VITALS (18 sets, daily range): BP systolic 126–150; BP diastolic 61–81; PULSE 63–90; RESP 10–20; TEMP 98–100.1; O2SAT 95–100
[2017-01-05] MEDS: INSULIN NovoLIN REGULAR SUPPLEMENTAL SCALE SQ SCH ×4 (03:00→21:00)
[2017-01-05] MEDS: RESP: ALBUTEROL 2.5 MG/IPRATROPIUM 0.5 MG NEB (SCH) INH ×4 (03:54→19:43)
[2017-01-05] MEDS: CHLORHEXIDINE GLUCONATE 2 % 1 PACK (2 CLOTHS) TOP SCH (03:59)
[2017-01-05] MEDS: PROPOFOL 1000 MG/100 ML INJ 100 ML IV SCH ×2 (03:59→06:01)
[2017-01-05] MEDS: AZTREONAM 1,000 MG/NS 100 ML IV SCH ×6 (06:02→20:37)
[2017-01-05] MEDS: AZITHROMYCIN INJ 500 MG in SODIUM CHLOR 0.9% 250 ML INJ 250 ML IV SCH (06:02)
--- NOTE | 2017-01-05 07:15 | RADRPT ---
EXAM DATE/TIME: 01/05/2017 05:07 [facility] COMPARISON: CHEST SINGLE AP, January 04, 2017, 5:02. INDICATIONS : Shortness of breath. MEDICAL HISTORY : Hypertension. Diabetes mellitus type II. SURGICAL HISTORY : None. ENCOUNTER: Subsequent ACUITY: 4 - 6 days PAIN SCORE: Non-responsive. LOCATION: chest FINDINGS: There is mild bibasilar consolidation and probable small effusions again noted, not significantly zoila nged. No pneumothorax. Heart size stable, upper limits of normal to slightly enlarged. Endotracheal tube tip is about 3 cm above the brunilda. There is a nasogastric tube coiled in the stoma ch. CONCLUSION: No significant change. Bibasilar consolidation and small effusions persist. Jasper Roy MD on January 05, 2017 at 7:13 Board Certified Radiologist. This report was verified electronically.
[2017-01-05 07:22] LABS: HEMATOCRIT 26.3 % (35.0-46.0); MEAN CELL VOLUME 80.5 FL (80.0-100.0); MEAN CORPUSCULAR HEMOGLOBIN 25.9 PG (27.0-34.0); MEAN CORPUSCULAR HGB CONC 32.2 % (32.0-36.0); PLATELET COUNT 219 TH/MM3 (150-450); RED BLOOD COUNT 3.27 MIL/MM3 (4.00-5.30); RED CELL DISTRIBUTION WIDTH 21.8 % (11.6-17.2); WHITE BLOOD COUNT 13.2 TH/MM3 (4.0-11.0)
[2017-01-05 07:44] LABS: HEMO FLAGS AUTO DIFF
[2017-01-05 07:55] LABS: POTASSIUM 4.1 MEQ/L (3.5-5.1)
[2017-01-05] MEDS: METOPROLOL TARTRATE 50 MG TAB PO SCH ×2 (08:19→20:51)
[2017-01-05] MEDS: APIXABAN 5 MG TABLET PO SCH ×2 (08:19→20:51)
[2017-01-05] MEDS: methylPREDNISolone SOD SUCC 40 MG/1 ML VIAL IV PUSH SCH ×2 (08:20→08:43)
--- NOTE | 2017-01-05 08:29 | HHI.CCPN ---
Subjective Remarks/Hospital Course The patient is a 71-year-old female with a past medical history of hypertension , hyperlipidemia, diabetes mellitus, atrial fibrillation on Eliquis, COPD, who presented to [facility] ED via EMS with respiratory distress. The patient has been short of breath for the last several days. On EMS arrival she had a GCS score of 8 and she was subsequently intubated with etomidate and Ativan. ABG was performed post intubation which showed acute hypercapnic respiratory failure with a pH of 7.31, CO2 51, pAO2 260 , bicarb 25, saturation of 98%. Her laboratory data is significant for leukocytosis with a WBC of 14.1, acute kidney injury with a creatinine level of 1.52 and estimated GFR 41. Her lactic acid level measured at 1.5. Chest x-ray showed interval development of bibasilar mixed interstitial and alveolar process. When seen the patient is intubated and sedated with Diprivan. The patient was placed on broad-spectrum antibiotics. 01/03 Patient is sedated with Diprivan and intubated. Afebrile. 01/04 Patient remains sedated and intubated. Afebrile. Tolerated CPAP only for 1 hr yesterday then became tachypneic. 01/05 No events overnight. Sedated and intubated. Afebrile. Objective Vital Signs Date Time Temp Pulse Resp B/P Pulse Ox O2 Delivery O2 Flow Rate FiO2 01/05/17 06:00 65 01/05/17 04:16 100 40 01/05/17 04:00 98.5 16 132/63 01/02/17 06:00 Ventilator Intake and Output 01/04/17 01/04/17 01/05/17 08:00 16:00 00:00 Intake Total 978 ml 1423 ml 1188 ml Output Total 350 ml 1000 ml 450 ml Balance 628 ml 423 ml 738 ml Result Diagram: 01/05/1762601/05/17626 Other Results Laboratory Tests Test 01/04/17 01/05/17 14:24 06:27 Blood Gas Puncture Site LT RADIAL Blood Gas Patient Temperature 98.6 Blood Gas HCO3 22 mmol/L Blood Gas Base Excess -1.2 mmol/L Blood Gas Oxygen Saturation 93 % Arterial Blood pH 7.45 Arterial Blood Partial 33 mmHg Pressure CO2 Arterial Blood Partial 83 mmHg Pressure O2 Arterial Blood Oxygen Content 12.6 Vol % Arterial Blood 1.4 % Carboxyhemoglobin Arterial Blood Methemoglobin 1.4 % Blood Gas Hemoglobin 9.5 G/DL Oxygen Delivery Device VENTILATOR Blood Gas Ventilator Setting Blood Gas Inspired Oxygen 40 % White Blood Count 13.2 TH/MM3 Red Blood Count 3.27 MIL/MM3 Hemoglobin 8.5 GM/DL Hematocrit 26.3 % Mean Corpuscular Volume 80.5 FL Mean Corpuscular Hemoglobin 25.9 PG Mean Corpuscular Hemoglobin 32.2 % Concent Red Cell Distribution Width 21.8 % Platelet Count 219 TH/MM3 Mean Platelet Volume 9.0 FL Neutrophils (%) (Auto) % Lymphocytes (%) (Auto) % Monocytes (%) (Auto) % Eosinophils (%) (Auto) % Basophils (%) (Auto) % Neutrophils # (Auto) TH/MM3 Lymphocytes # (Auto) TH/MM3 Monocytes # (Auto) TH/MM3 Eosinophils # (Auto) TH/MM3 Basophils # (Auto) TH/MM3 CBC Comment AUTO DIFF Sodium Level 147 MEQ/L Potassium Level 4.1 MEQ/L Chloride Level 113 MEQ/L Carbon Dioxide Level 25.0 MEQ/L Anion Gap 9 MEQ/L Blood Urea Nitrogen 46 MG/DL Creatinine 1.41 MG/DL Estimat Glomerular Filtration 44 ML/MIN Rate Random Glucose 297 MG/DL Calcium Level 8.2 MG/DL Imaging Last Impressions Chest X-Ray 01/05/17 0600 Signed Impressions: Service Date/Time: Thursday, January 05, 2017 05:07 - CONCLUSION: No significant change. Bibasilar consolidation and small effusions persist. Jasper Roy MD Renal Ultrasound 01/04/17 0000 Signed Impressions: Service Date/Time: December 11:21 - CONCLUSION: Unremarkable sonographic appearance of the kidneys Jasper Snyder MD Chest CT 01/02/17 0000 Signed Impressions: Service Date/Time: Monday, January 02, 2017 11:08 - CONCLUSION: 1. Examination quality degraded by respiratory motion artifact. There are small bilateral pleural effusions, right larger than left with associated compressive atelectasis along with consolidation in both lower lobes. 2. Stable mediastinal lymphadenopathy from uncertain etiology. 3. Stable enlargement of the upper pulmonary arteries which may indicate pulmonary tear hypertension. 4. One month stable 17 mm hyperdense left renal lesion. Suggest correlation with older examinations which could further characterize or document longer term stability. If none are available consider renal protocol CT or MRI when the patient's condition permits for a high quality exam. Jasper Goldsmith MD Objective Remarks GENERAL: Patint is 71 yo intubated and sedated SKIN: Warm and dry. HEAD: Normocephalic. EYES: No scleral icterus. No injection or drainage. NECK: Supple, trachea midline. No JVD or lymphadenopathy. CARDIOVASCULAR: Regular rate and rhythm without murmurs, gallops, or rubs. RESPIRATORY: Breath sounds equal bilaterally. No accessory muscle use. GASTROINTESTINAL: Abdomen soft, non-tender, nondistended. MUSCULOSKELETAL: No cyanosis, + +edema. Neuro: Sedated A/P Assessment and Plan 1. Acute hypoxemic and hypercapnic respiratory failure. 2. COPD exacerbation. 3. Bibasilar mixed interstitial and alveolar process. 4. Paroxysmal atrial fibrillation on Eliquis. 5. Diabetes mellitus. 6. Hypertension. 7. Hyperlipidemia. 8. Leukocytosis. 9. Anemia. 10. Acute kidney injury. 11. Mild elevation in troponin. Plan Neuro: On Diprivan infusion for sedation. Daily sedation vacation Pulm: Continue vent support and maintain sats above 92%. Bronchodilators, decrease Solu-Medrol 20 mg IV q. daily SBT daily as tanisha, Pulm D 'D'Fournier CXR today-bibasilar consolidation CV: On Lopressor 50mg BID- Monitor HR and BP and maintain MAP> 65 mmHg. Lactic acid level measured at 1.5. Echo from November showed EF of 60-65% , no RWMA and pulmonary hypertension with a PA pressure of 59 mmHg. : Monitor renal function Is and Os and electrolyte replacement as needed. D/C IVF, Cr: 1.41 today from 1.73. renal US: unremarkable. GI: On Pepcid 10 mg IV q. 12-hours for GI prophylaxis tube feeds with Glucerna 1.5 with goal rate of 45 mL/hour. Monitor for residuals. ID: Continue with abx(aztreonam and azithromycin) Monitor for signs of infections(fever and WBC). Nasal aspirate is negative for influenza. 01/02 sputum culture.. nl resp maria esther. 01/02 BC: NGTD Strep pneumonia and Legionella urinary antigen negative. Heme: Monitor CBC and coags. Endo: On medium ISS, increase Levemir 15 units Q12 for glycemic control GI prophylaxis with Pepcid 10 mg IV q. 12 and DVT prophylaxis with SCDs and Eliquis 5 mg p.o. b.i.d. Level 3 Oh Gaming MD January 05, 2017 08:29
[2017-01-05] MEDS: ACETAMINOPHEN 325 MG TAB PO PRN ×2 (08:31→20:51)
[2017-01-05] MEDS: FAMOTIDINE 20 MG/2 ML VIAL IV PUSH SCH ×2 (08:31→20:37)
[2017-01-05] MEDS: INSULIN DETEMIR 100 UNITS/ML VIAL SQ SCH ×2 (08:39→21:00)
[2017-01-05 08:41] LABS: MYELOCYTES 1 % (0-0); NEUTROPHIL # MANUAL DIFF 12.3 TH/MM3 (1.8-7.7); POLYS (SEG NEUTROPHILS) 92 % (16-70); WBC DIFF SAMPLE 100
[2017-01-05 08:42] LABS: ACANTHOCYTES OCC (NORMAL); KERATOCYTES OCC (NORMAL); OVALOCYTES 1+ (NORMAL); PLATELET ESTIMATE SMEAR NORMAL (NORMAL); PLATELET MORPHOLOGY ENLARGED (NORMAL); SCAN/DIFF FINAL DIFF MANUAL
[2017-01-05] MEDS ORDERED: VANCOMYCIN INJ 1,000 MG in SODIUM CHLOR 0.9% 250 ML INJ 250 ML IV ONE (09:00)
[2017-01-05] MEDS: hydrALAZINE HCL 20 MG/ML VIAL IV PUSH PRN (23:42)
[2017-01-06] VITALS (36 sets, daily range): BP systolic 84–170; BP diastolic 60–116; PULSE 64–140; RESP 21–43; TEMP 98.4–99.2; O2SAT 77–99
[2017-01-06] MEDS: INSULIN NovoLIN REGULAR SUPPLEMENTAL SCALE SQ SCH ×4 (03:00→21:00)
[2017-01-06] MEDS: RESP: ALBUTEROL 2.5 MG/IPRATROPIUM 0.5 MG NEB (SCH) INH ×6 (03:35→23:40)
[2017-01-06] MEDS: CHLORHEXIDINE GLUCONATE 2 % 1 PACK (2 CLOTHS) TOP SCH (03:47)
[2017-01-06] MEDS: AZTREONAM 1,000 MG/NS 100 ML IV SCH ×6 (06:14→21:13)
[2017-01-06] MEDS: AZITHROMYCIN INJ 500 MG in SODIUM CHLOR 0.9% 250 ML INJ 250 ML IV SCH (06:15)
--- NOTE | 2017-01-06 07:45 | HHI.CCPN ---
Subjective Remarks/Hospital Course The patient is a 71-year-old female with a past medical history of hypertension , hyperlipidemia, diabetes mellitus, atrial fibrillation on Eliquis, COPD, who presented to [facility] ED via EMS with respiratory distress. The patient has been short of breath for the last several days. On EMS arrival she had a GCS score of 8 and she was subsequently intubated with etomidate and Ativan. ABG was performed post intubation which showed acute hypercapnic respiratory failure with a pH of 7.31, CO2 51, pAO2 260 , bicarb 25, saturation of 98%. Her laboratory data is significant for leukocytosis with a WBC of 14.1, acute kidney injury with a creatinine level of 1.52 and estimated GFR 41. Her lactic acid level measured at 1.5. Chest x-ray showed interval development of bibasilar mixed interstitial and alveolar process. When seen the patient is intubated and sedated with Diprivan. The patient was placed on broad-spectrum antibiotics. 01/03 Patient is sedated with Diprivan and intubated. Afebrile. 01/04 Patient remains sedated and intubated. Afebrile. Tolerated CPAP only for 1 hr yesterday then became tachypneic. 01/05 No events overnight. Sedated and intubated. Afebrile. 01/06 Patient was self extubated last night placed on BIPAP 25/12 with 35% FIO2. Afebrile. Awake and alert. Objective Vital Signs Date Time Temp Pulse Resp B/P Pulse Ox O2 Delivery O2 Flow Rate FiO2 01/06/17 06:00 68 01/06/17 04:30 96 40 01/06/17 04:00 98.5 29 124/66 01/06/17 00:45 Bi-Pap 01/05/17 22:00 10.00 Intake and Output 01/05/17 01/05/17 01/06/17 08:00 16:00 00:00 Intake Total 1115 ml 1195 ml 511 ml Output Total 300 ml 425 ml 500 ml Balance 815 ml 770 ml 11 ml Result Diagram: 01/05/1762601/05/17626 Imaging Last Impressions Chest X-Ray 01/05/17599 Signed Impressions: Service Date/Time: Thursday, January 05, 2017 05:07 - CONCLUSION: No significant change. Bibasilar consolidation and small effusions persist. Jasper Roy MD Renal Ultrasound 01/04/17 0000 Signed Impressions: Service Date/Time: December 11:21 - CONCLUSION: Unremarkable sonographic appearance of the kidneys Jasper Snyder MD Chest CT 01/02/17 0000 Signed Impressions: Service Date/Time: Monday, January 02, 2017 11:08 - CONCLUSION: 1. Examination quality degraded by respiratory motion artifact. There are small bilateral pleural effusions, right larger than left with associated compressive atelectasis along with consolidation in both lower lobes. 2. Stable mediastinal lymphadenopathy from uncertain etiology. 3. Stable enlargement of the upper pulmonary arteries which may indicate pulmonary tear hypertension. 4. One month stable 17 mm hyperdense left renal lesion. Suggest correlation with older examinations which could further characterize or document longer term stability. If none are available consider renal protocol CT or MRI when the patient's condition permits for a high quality exam. Jasper Goldsmith MD Objective Remarks GENERAL: Patient is 71 yo lying in bed in NAD SKIN: Warm and dry. HEAD: Normocephalic. EYES: No scleral icterus. No injection or drainage. NECK: Supple, trachea midline. No JVD or lymphadenopathy. CARDIOVASCULAR: Regular rate and rhythm without murmurs, gallops, or rubs. RESPIRATORY: Breath sounds equal bilaterally. No accessory muscle use. GASTROINTESTINAL: Abdomen soft, non-tender, nondistended. MUSCULOSKELETAL: No cyanosis, or edema. Neuro:Awake and alert. A/P Assessment and Plan 1. Acute hypoxemic and hypercapnic respiratory failure. self extubated night of 01/05 2. COPD exacerbation. 3. Bibasilar mixed interstitial and alveolar process. 4. Paroxysmal atrial fibrillation on Eliquis. 5. Diabetes mellitus. 6. Hypertension. 7. Hyperlipidemia. 8. Leukocytosis. 9. Anemia. 10. Acute kidney injury. 11. Mild elevation in troponin. Plan Neuro: Awake and alert, avoid sedatives Pulm: Continue with oxygen and maintain sats above 92%. Bronchodilators, Solu-Medrol 20 mg IV q. daily Incentive spirometry, Pulm is following- Dr. Chavez, CV: On Lopressor 50mg BID- Monitor HR and BP and maintain MAP> 65 mmHg. Lactic acid level measured at 1.5. Echo from November showed EF of 60-65% , no RWMA and pulmonary hypertension with a PA pressure of 59 mmHg. : Monitor renal function Is and Os and electrolyte replacement as needed. Follow up on BMP today GI: On Pepcid 10 mg IV q. 12-hours for GI prophylaxis Speech eval diet per speech ID: Continue with abx(aztreonam and azithromycin) Monitor for signs of infections(fever and WBC). Nasal aspirate is negative for influenza. 01/02 sputum culture.. nl resp maria esther. 01/02 BC: NGTD Strep pneumonia and Legionella urinary antigen negative. Heme: Monitor CBC and coags. Endo: On medium ISS, Levemir 15 units Q12 for glycemic control GI prophylaxis with Pepcid 10 mg IV q. 12 and DVT prophylaxis with SCDs and Eliquis 5 mg p.o. b.i.d. Follow up on labs Level 3 Oh Gaming MD January 06, 2017 07:45
[2017-01-06 07:51] LABS: HEMATOCRIT 29.8 % (35.0-46.0); MEAN CELL VOLUME 82.8 FL (80.0-100.0); MEAN CORPUSCULAR HEMOGLOBIN 25.8 PG (27.0-34.0); MEAN CORPUSCULAR HGB CONC 31.2 % (32.0-36.0); PLATELET COUNT 228 TH/MM3 (150-450); RED BLOOD COUNT 3.61 MIL/MM3 (4.00-5.30); RED CELL DISTRIBUTION WIDTH 21.9 % (11.6-17.2); WHITE BLOOD COUNT 15.5 TH/MM3 (4.0-11.0)
[2017-01-06 07:58] LABS: HEMO FLAGS AUTO DIFF
[2017-01-06] MEDS: methylPREDNISolone SOD SUCC 40 MG/1 ML VIAL IV PUSH SCH (07:59)
[2017-01-06] MEDS: FAMOTIDINE 20 MG/2 ML VIAL IV PUSH SCH ×2 (07:59→21:14)
[2017-01-06] MEDS: METOPROLOL TARTRATE 50 MG TAB PO SCH (08:00)
[2017-01-06] MEDS ORDERED: RESP: ALBUTEROL 2.5 MG/IPRATROPIUM 0.5 MG NEB (PRN) INH (08:00)
[2017-01-06] MEDS: APIXABAN 5 MG TABLET PO SCH (08:00)
[2017-01-06 08:13] LABS: BICARBONATE 25.7 MEQ/L (21.0-32.0); POTASSIUM 4.3 MEQ/L (3.5-5.1)
[2017-01-06 08:56] LABS: BANDS 2 % (0-6); PLATELET ESTIMATE SMEAR NORMAL (NORMAL); PLATELET MORPHOLOGY NORMAL (NORMAL); POLYS (SEG NEUTROPHILS) 88 % (16-70); SCAN/DIFF FINAL DIFF MANUAL; WBC DIFF SAMPLE 100
[2017-01-06 08:57] LABS: ACANTHOCYTES OCC (NORMAL)
[2017-01-06 08:58] LABS: OVALOCYTES 1+ (NORMAL)
[2017-01-06] MEDS: INSULIN DETEMIR 100 UNITS/ML VIAL SQ SCH (09:00)
[2017-01-06] MEDS: LACTATED RINGER'S 1000 ML INJ 1,000 ML IV SCH (10:57)
[2017-01-06] MEDS: amLODIPine BESYLATE 5 MG TAB PO SCH (15:45)
[2017-01-06] MEDS ORDERED: DILTIAZEM HCL 25 MG/5 ML VIAL IV ONE (17:45)
[2017-01-06] MEDS: hydrALAZINE HCL 20 MG/ML VIAL IV PUSH PRN (19:47)
[2017-01-06 20:36] LABS: BLOOD GAS BASE EXCESS -4.3 mmol/L (-2-2); BLOOD GAS CARBOXYHEMOGLOBIN 1.1 % (0-4); BLOOD GAS HCO3 21 mmol/L (22-26); BLOOD GAS METHEMOGLOBIN 1.2 % (0-2); BLOOD GAS O2 HGB SATURATION 96 % (90-100); BLOOD GAS OXYGEN CONTENT 14.5 Vol % (12.0-20.0); BLOOD GAS PCO2 46 mmHg (38-42); BLOOD GAS PO2 160 mmHg (61-120); BLOOD GAS TOTAL HGB 10.5 G/DL (12.0-16.0); TEMP CORR TO 98.6
[2017-01-06 20:37] LABS: CRITICAL VALUE YES; DRAW SITE RT RADIAL; FIO2 60 %; NUMBER OF ARTERIAL PUNCTURES 1; OXYGEN DEVICE BIPAP; STAT NO; ULNAR PULSE PRESENT; VENT SETTINGS IPAP16/EPAP6
[2017-01-06] MEDS: DEXMEDETOMIDINE INJ 200 MCG in SODIUM CHLORIDE 0.9% INJ 50 ML IV SCH (21:15)
[2017-01-07] VITALS (24 sets, daily range): BP systolic 96–136; BP diastolic 59–92; PULSE 71–130; RESP 17–31; TEMP 97.9–99; O2SAT 92–100
[2017-01-07] MEDS: APIXABAN 5 MG TABLET PO SCH ×3 (00:45→20:57)
[2017-01-07] MEDS: LACTATED RINGER'S 1000 ML INJ 1,000 ML IV SCH (00:45)
[2017-01-07] MEDS: METOPROLOL TARTRATE 50 MG TAB PO SCH ×3 (00:45→20:57)
[2017-01-07] MEDS: CHLORHEXIDINE GLUCONATE 2 % 1 PACK (2 CLOTHS) TOP SCH (00:45)
[2017-01-07] MEDS: INSULIN NovoLIN REGULAR SUPPLEMENTAL SCALE SQ SCH ×4 (03:00→20:55)
[2017-01-07] MEDS: AZITHROMYCIN INJ 500 MG in SODIUM CHLOR 0.9% 250 ML INJ 250 ML IV SCH (04:06)
[2017-01-07] MEDS: AZTREONAM 1,000 MG/NS 100 ML IV SCH ×2 (04:07)
[2017-01-07] MEDS: RESP: ALBUTEROL 2.5 MG/IPRATROPIUM 0.5 MG NEB (SCH) INH ×5 (04:37→18:54)
[2017-01-07] MEDS: DEXMEDETOMIDINE INJ 200 MCG in SODIUM CHLORIDE 0.9% INJ 50 ML IV SCH (06:15)
[2017-01-07] MEDS: amLODIPine BESYLATE 5 MG TAB PO SCH (09:00)
[2017-01-07] MEDS: methylPREDNISolone SOD SUCC 40 MG/1 ML VIAL IV PUSH SCH (09:00)
[2017-01-07 09:05] LABS: HEMATOCRIT 28.3 % (35.0-46.0); MEAN CELL VOLUME 82.8 FL (80.0-100.0); MEAN CORPUSCULAR HEMOGLOBIN 25.9 PG (27.0-34.0); MEAN CORPUSCULAR HGB CONC 31.3 % (32.0-36.0); PLATELET COUNT 196 TH/MM3 (150-450); RED BLOOD COUNT 3.42 MIL/MM3 (4.00-5.30); RED CELL DISTRIBUTION WIDTH 21.7 % (11.6-17.2); WHITE BLOOD COUNT 10.1 TH/MM3 (4.0-11.0)
[2017-01-07 09:15] LABS: HEMO FLAGS AUTO DIFF
[2017-01-07 09:29] LABS: BICARBONATE 25.9 MEQ/L (21.0-32.0); POTASSIUM 4.3 MEQ/L (3.5-5.1)
[2017-01-07] MEDS: FAMOTIDINE 20 MG/2 ML VIAL IV PUSH SCH ×2 (09:33→20:57)
[2017-01-07 09:59] LABS: ACANTHOCYTES OCC (NORMAL); CORRECTED NUCLEATED RBC 1 /100 WBC (0-0); NEUTROPHIL # MANUAL DIFF 7.8 TH/MM3 (1.8-7.7); OVALOCYTES 1+ (NORMAL); PLATELET ESTIMATE SMEAR NORMAL (NORMAL); PLATELET MORPHOLOGY NORMAL (NORMAL); POLYS (SEG NEUTROPHILS) 77 % (16-70); SCAN/DIFF FINAL DIFF MANUAL; WBC DIFF SAMPLE 100
[2017-01-07 10:00] LABS: KERATOCYTES OCC (NORMAL)
--- NOTE | 2017-01-07 13:20 | HHI.PR ---
Subjective Remarks Follow-up Acute hypoxemic and hypercapnic respiratory failure/COPD exacerbation 01/07/17- patient seen and examined, currently on 5 L nasal cannula oxygen and patient tires easily. Early this morning secondary to work of breathing she has to be put back on BiPAP and patient states she no longer want any heroic measure. States, her will bring her living will. Currently afebrile Objective Vitals Vital Signs Date Time Temp Pulse Resp B/P Pulse Ox O2 Delivery O2 Flow Rate FiO2 01/07/17 10:00 108 30 104/64 94 01/07/17 10:00 120 01/07/17 09:37 Nasal Cannula 4.00 01/07/17 09:00 107 24 117/79 92 01/07/17 08:00 98.8 109 25 96/68 100 01/07/17 07:00 95 Nasal Cannula 3.00 01/07/17 06:00 120 01/07/17 04:38 100 40 01/07/17 04:00 118 01/07/17 04:00 98.7 118 23 112/71 96 01/07/17 02:00 118 01/07/17 00:01 99.0 115 17 105/70 100 01/07/17 00:00 124 01/06/17 23:38 99 40 01/06/17 22:00 121 01/06/17 21:00 98 Bi-Pap 40 01/06/17 20:16 96 40 01/06/17 20:00 99.2 140 43 170/116 77 01/06/17 20:00 140 01/06/17 20:00 77 Bi-Pap 65 01/06/17 19:00 76 Nasal Cannula 3.00 01/06/17 18:00 119 31 138/74 94 01/06/17 17:00 Nasal Cannula 3.00 01/06/17 17:00 121 26 143/88 84 01/06/17 16:00 98.9 125 26 140/99 78 01/06/17 15:55 98 40 01/06/17 15:09 117 32 136/83 93 01/06/17 15:00 Bi-Pap 40 01/06/17 15:00 121 38 90 01/06/17 14:57 93 40 01/06/17 14:30 119 33 133/85 90 01/06/17 14:00 122 33 127/82 90 01/06/17 13:30 121 32 137/72 I/O 01/06/17 01/06/17 01/06/17 01/07/17 01/07/17 01/07/17 07:00 15:00 23:00 07:00 15:00 23:00 Intake Total 609 ml 1160 ml 702 ml 682 ml Output Total 750 ml 325 ml 325 ml 300 ml Balance -141 ml 835 ml 377 ml 382 ml Intake Oral 600 ml IV Total 355 ml 560 ml 702 ml 682 ml Tube Feeding 254 ml Output Urine Total 750 ml 325 ml 325 ml 300 ml # Bowel Movements 1 0 Result Diagram: 01/07/17 0803 01/07/17 0803 Imaging Last Impressions Chest X-Ray 01/05/17 0600 Signed Impressions: Service Date/Time: Thursday, January 05, 2017 05:07 - CONCLUSION: No significant change. Bibasilar consolidation and small effusions persist. Jasper Roy MD Renal Ultrasound 01/04/17 0000 Signed Impressions: Service Date/Time: December 11:21 - CONCLUSION: Unremarkable sonographic appearance of the kidneys Jasper Snyder MD Chest CT 01/02/17 0000 Signed Impressions: Service Date/Time: Monday, January 02, 2017 11:08 - CONCLUSION: 1. Examination quality degraded by respiratory motion artifact. There are small bilateral pleural effusions, right larger than left with associated compressive atelectasis along with consolidation in both lower lobes. 2. Stable mediastinal lymphadenopathy from uncertain etiology. 3. Stable enlargement of the upper pulmonary arteries which may indicate pulmonary tear hypertension. 4. One month stable 17 mm hyperdense left renal lesion. Suggest correlation with older examinations which could further characterize or document longer term stability. If none are available consider renal protocol CT or MRI when the patient's condition permits for a high quality exam. Jasper Goldsmith MD Objective Remarks GENERAL: NAD however tires easily when talking SKIN: Warm and dry. HEAD: Normocephalic. EYES: No scleral icterus. No injection or drainage. NECK: Supple, trachea midline. No JVD or lymphadenopathy. CARDIOVASCULAR: irreg Regular rate and rhythm without murmurs, gallops, or rubs. RESPIRATORY: Breath sounds decreased bilaterally. No accessory muscle use. GASTROINTESTINAL: Abdomen soft, non-tender, nondistended. MUSCULOSKELETAL: No cyanosis, or edema. BACK: Nontender without obvious deformity. No CVA tenderness. A/P Problem List: (1) COPD exacerbation ICD Code: J44.1 Status: Acute (2) Acute respiratory failure with hypercapnia ICD Code: J96.02 Status: Acute (3) Acute respiratory failure with hypoxemia ICD Code: J96.01 Status: Acute Assessment and Plan 71 year-old female with 1. Acute hypoxemic and hypercapnic respiratory failure. Self extubated night of 01/05 Continue with oxygen and maintain sats above 92%,Bronchodilators, s/p Solu- Medrol 20 mg IV q. daily, prednisone 20 mg daily, Incentive spirometry, Pulm is following- Dr. Chavez, BiPAP when necessary. Will DC Precedex 2. COPD exacerbation. Continue with oxygen and maintain sats above 92%,Bronchodilators, azithromycin, Solu-Medrol 20 mg IV q. daily, Incentive spirometry, Pulm is following- Dr. Chavez, 3. Bibasilar mixed interstitial and alveolar process. De-escalate antibiotics by discontinue aztreonam but continue azithromycin. Monitor for signs of infections(fever and WBC). Nasal aspirate is negative for influenza. 01/02 sputum culture NTD Strep pneumonia and Legionella urinary antigen negative. 4. Paroxysmal atrial fibrillation On Lopressor 50mg BID and Eliquis. 5. Diabetes mellitus. On medium ISS, continue to hold Levemir 15 units Q12 6. Hypertension. On Lopressor 50mg BID and Norvasc 7. Hyperlipidemia. 8. Leukocytosis-Resolved 9. Anemia of chronic kidney disease: Continue to monitor H&H 10. Acute kidney injury-improving 11. Mild elevation in troponin. Echo from November showed EF of 60-65% , no RWMA and pulmonary hypertension with a PA pressure of 59 mmHg. GI prophylaxis with Pepcid 10 mg IV q. 12 and DVT prophylaxis with SCDs and Eliquis 5 mg p.o. b.i.d. Total critical care spent 32 minutes Reid Azar MD January 07, 2017 13:20
[2017-01-08] VITALS (24 sets, daily range): BP systolic 128–172; BP diastolic 66–95; PULSE 60–122; RESP 18–32; TEMP 98–98.3; O2SAT 93–100
[2017-01-08] MEDS: INSULIN NovoLIN REGULAR SUPPLEMENTAL SCALE SQ SCH ×4 (03:00→20:55)
[2017-01-08] MEDS: CHLORHEXIDINE GLUCONATE 2 % 1 PACK (2 CLOTHS) TOP SCH (04:00)
[2017-01-08 06:18] LABS: HEMATOCRIT 32.8 % (35.0-46.0); MEAN CELL VOLUME 84.2 FL (80.0-100.0); MEAN CORPUSCULAR HEMOGLOBIN 25.7 PG (27.0-34.0); MEAN CORPUSCULAR HGB CONC 30.6 % (32.0-36.0); PLATELET COUNT 252 TH/MM3 (150-450); WHITE BLOOD COUNT 13.1 TH/MM3 (4.0-11.0)
[2017-01-08] MEDS: hydrALAZINE HCL 20 MG/ML VIAL IV PUSH PRN ×2 (06:19→20:30)
[2017-01-08] MEDS: AZITHROMYCIN INJ 500 MG in SODIUM CHLOR 0.9% 250 ML INJ 250 ML IV SCH (06:19)
[2017-01-08 06:23] LABS: BICARBONATE 24.1 MEQ/L (21.0-32.0); HEMO FLAGS AUTO DIFF; POTASSIUM 4.9 MEQ/L (3.5-5.1)
[2017-01-08] MEDS: RESP: ALBUTEROL 2.5 MG/IPRATROPIUM 0.5 MG NEB (SCH) INH ×4 (07:49→19:51)
[2017-01-08] MEDS: METOPROLOL TARTRATE 50 MG TAB PO SCH ×2 (08:53→20:29)
[2017-01-08] MEDS: amLODIPine BESYLATE 5 MG TAB PO SCH (08:53)
[2017-01-08] MEDS: predniSONE 20 MG TAB PO SCH (08:54)
[2017-01-08] MEDS: APIXABAN 5 MG TABLET PO SCH ×2 (08:54→20:29)
[2017-01-08] MEDS: FAMOTIDINE 20 MG/2 ML VIAL IV PUSH SCH ×2 (08:54→20:30)
[2017-01-08 10:03] LABS: CORRECTED NUCLEATED RBC 1 /100 WBC (0-0); NEUTROPHIL # MANUAL DIFF 11.1 TH/MM3 (1.8-7.7); POLYS (SEG NEUTROPHILS) 85 % (16-70); WBC DIFF SAMPLE 100
[2017-01-08 10:04] LABS: ACANTHOCYTES OCC (NORMAL); KERATOCYTES OCC (NORMAL); PLATELET ESTIMATE SMEAR NORMAL (NORMAL); PLATELET MORPHOLOGY NORMAL (NORMAL); SCAN/DIFF FINAL DIFF MANUAL
--- NOTE | 2017-01-08 13:30 | HHI.PR ---
Subjective Remarks Follow-up Acute hypoxemic and hypercapnic respiratory failure/COPD exacerbation 01/07/17- patient seen and examined, currently on 5 L nasal cannula oxygen and patient tires easily. Early this morning secondary to work of breathing she has to be put back on BiPAP and patient states she no longer want any heroic measure. States, her will bring her living will. Currently afebrile 01/08/17-patient seen and examined, although with some shortness of breath however denies any. Complains of lower extremities pain. Patient is now DO NOT RESUSCITATE Objective Vitals Vital Signs Date Time Temp Pulse Resp B/P Pulse Ox O2 Delivery O2 Flow Rate FiO2 01/08/17 12:00 98.3 73 20 143/70 96 01/08/17 12:00 72 01/08/17 10:00 75 01/08/17 08:00 98.0 75 18 131/93 95 01/08/17 08:00 75 01/08/17 07:49 95 Nasal Cannula 5.00 01/08/17 07:08 74 01/08/17 07:00 98 Nasal Cannula 3.00 01/08/17 04:00 98.0 74 19 154/95 95 01/08/17 04:00 74 01/08/17 02:00 68 01/08/17 00:00 70 01/08/17 00:00 98.2 70 25 131/77 99 01/07/17 23:00 71 31 136/77 98 01/07/17 22:00 73 28 133/70 99 01/07/17 22:00 73 01/07/17 20:15 94 Nasal Cannula 4.00 01/07/17 20:00 98 Nasal Cannula 3.00 01/07/17 20:00 76 01/07/17 20:00 98.5 76 24 135/71 98 01/07/17 19:00 98 Bi-Pap 01/07/17 18:55 100 60 01/07/17 18:00 130 01/07/17 17:00 117 25 119/85 94 01/07/17 16:01 113 28 120/68 98 01/07/17 16:00 115 26 99 01/07/17 16:00 111 01/07/17 15:00 117 26 119/59 99 01/07/17 15:00 98.7 117 26 119/59 99 01/07/17 14:01 112 28 112/92 99 01/07/17 14:00 120 01/07/17 14:00 114 28 98 I/O 01/07/17 01/07/17 01/07/17 01/08/17 01/08/17 01/08/17 07:00 15:00 23:00 07:00 15:00 23:00 Intake Total 682 ml 1192 ml 250 ml 300 ml Output Total 300 ml 375 ml 275 ml 275 ml Balance 382 ml 817 ml -25 ml 25 ml Intake Oral 650 ml 250 ml 50 ml IV Total 682 ml 542 ml 250 ml Output Urine Total 300 ml 375 ml 275 ml 275 ml # Bowel Movements 0 Result Diagram: 01/08/17 0509 01/08/17 0509 Objective Remarks GENERAL: NAD however tires easily when talking SKIN: Warm and dry. HEAD: Normocephalic. EYES: No scleral icterus. No injection or drainage. NECK: Supple, trachea midline. No JVD or lymphadenopathy. CARDIOVASCULAR: irreg Regular rate and rhythm without murmurs, gallops, or rubs. RESPIRATORY: Breath sounds decreased bilaterally. No accessory muscle use. GASTROINTESTINAL: Abdomen soft, non-tender, nondistended. MUSCULOSKELETAL: No cyanosis; +1BLE edema. BACK: Nontender without obvious deformity. No CVA tenderness. A/P Problem List: (1) COPD exacerbation ICD Code: J44.1 Status: Acute (2) Acute respiratory failure with hypercapnia ICD Code: J96.02 Status: Acute (3) Acute respiratory failure with hypoxemia ICD Code: J96.01 Status: Acute Assessment and Plan 71 year-old female with 1. Acute hypoxemic and hypercapnic respiratory failure. Self extubated night of 01/05 Continue with oxygen and maintain sats above 92%,Bronchodilators, s/p Solu- Medrol 20 mg IV q. daily, prednisone 20 mg daily, Incentive spirometry, Pulm is following- Shrari Alfaro when necessary. 2. COPD exacerbation. Continue with oxygen and maintain sats above 92%,Bronchodilators, azithromycin, prednisone 20 mg daily. daily, Incentive spirometry, Pulm ff, 3. Bibasilar mixed interstitial and alveolar process. s/p aztreonam and continue azithromycin. Monitor for signs of infections( fever and WBC). Nasal aspirate is negative for influenza. 5/23 sputum culture NTD Strep pneumonia and Legionella urinary antigen negative. 4. Paroxysmal atrial fibrillation On Lopressor 50mg BID and Eliquis. 5. Diabetes mellitus. On medium ISS, continue to hold Levemir 15 units Q12 6. Hypertension. On Lopressor 50mg BID and Norvasc 7. Hyperlipidemia. 8. Leukocytosis-likely secondary to steroid and monitor CBC 9. Anemia of chronic kidney disease: Continue to monitor H&H 10. Acute kidney injury-improving 11. Mild elevation in troponin. Echo from November showed EF of 60-65% , no RWMA and pulmonary hypertension with a PA pressure of 59 mmHg. GI prophylaxis with Pepcid 10 mg IV q. 12 and DVT prophylaxis with SCDs and Eliquis 5 mg p.o. b.i.d. DO NOT RESUSCITATE Reid Azar MD January 08, 2017 13:30
--- NOTE | 2017-01-08 13:46 | HHI.PR ---
Subjective Remarks Extubated herself. Now on a Bipap mask a nd FIO2 60 %. Alert and talking. Output was good. Objective Vital Signs Date Time Temp Pulse Resp B/P Pulse Ox O2 Delivery O2 Flow Rate FiO2 01/08/17 13:29 99 60 01/08/17 12:00 98.3 73 20 143/70 96 01/08/17 12:00 72 01/08/17 10:00 75 01/08/17 08:00 98.0 75 18 131/93 95 01/08/17 08:00 75 01/08/17 07:49 95 Nasal Cannula 5.00 01/08/17 07:08 74 01/08/17 07:00 98 Nasal Cannula 3.00 01/08/17 04:00 98.0 74 19 154/95 95 01/08/17 04:00 74 01/08/17 02:00 68 01/08/17 00:00 70 01/08/17 00:00 98.2 70 25 131/77 99 01/07/17 23:00 71 31 136/77 98 01/07/17 22:00 73 28 133/70 99 01/07/17 22:00 73 01/07/17 20:15 94 Nasal Cannula 4.00 01/07/17 20:00 98 Nasal Cannula 3.00 01/07/17 20:00 76 01/07/17 20:00 98.5 76 24 135/71 98 01/07/17 19:00 98 Bi-Pap 01/07/17 18:55 100 60 01/07/17 18:00 130 01/07/17 17:00 117 25 119/85 94 01/07/17 16:01 113 28 120/68 98 01/07/17 16:00 115 26 99 01/07/17 16:00 111 01/07/17 15:00 117 26 119/59 99 01/07/17 15:00 98.7 117 26 119/59 99 01/07/17 14:01 112 28 112/92 99 01/07/17 14:00 120 01/07/17 14:00 114 28 98 I/O 01/07/17 01/07/17 01/07/17 01/08/17 01/08/17 01/08/17 07:00 15:00 23:00 07:00 15:00 23:00 Intake Total 682 ml 1192 ml 250 ml 300 ml Output Total 300 ml 375 ml 275 ml 275 ml Balance 382 ml 817 ml -25 ml 25 ml Intake Oral 650 ml 250 ml 50 ml IV Total 682 ml 542 ml 250 ml Output Urine Total 300 ml 375 ml 275 ml 275 ml # Bowel Movements 0 Result Diagram: 01/08/17 0509 01/08/17 0509 Objective Remarks GENERAL: This is an averagely built elderly lady who is awake and in mild distress HEENT: Head normocephalic. Pupils are reactive. Throat was clear. Ears no inflammation. NECK: Supple. No bruits or thyroid enlargement. CHEST: Distant breath sounds with occasional expiratory wheezes bilaterally. Bibasilar crackles are heard. HEART: Heart sounds are irregularly irregular, S1-S2 with no murmur. No S3. ABDOMEN: Abdomen is soft, benign. No masses, no organomegaly or tenderness. Bowel sounds are active. EXTREMITIES: 1 + edema. Peripheral pulses are diminished. NEUROLOGIC: Reflexes are 1+. No focal deficit. Babinski negative. RECTAL: Exam is deferred. SKIN: Dry and cool. Assessment and Plan Assessment and Plan IMPRESSION 1. Acute hypercapnic respiratory failure. 2. Basilar pneumonia with possible mild pulmonary edema. 3. COPD with acute exacerbation 4. Diabetes mellitus 5. Hypertension and hyperlipidemia 6. Acute kidney injury. Plan : 1. Continue Bipap today and wean to ventimask in am. 2. Continue Epixaban 3. Nebs qid , Duoneb. 4. Continue antibioitcs. 5. Cont Prednisone 20 mg daily. 6. CBC ,BMP Chest X ray in am Bessie Chavez MD January 08, 2017 13:45
--- NOTE | 2017-01-08 14:37 | RADRPT ---
EXAM DATE/TIME: 01/08/2017 13:54 [facility] COMPARISON: CHEST SINGLE AP, January 05, 2017, 5:07. INDICATIONS : Short of breath. MEDICAL HISTORY : Hypertension. Diabetes mellitus type II. SURGICAL HISTORY : None. ENCOUNTER: Subsequent ACUITY: 1 week PAIN SCORE: 0/10 LOCATION: Bilateral chest FINDINGS: Rotated AP view of the chest demonstrates cardiac silhouette size at the upper limits for normal. The re are stable bibasilar opacities. No pneumothorax is visualized. Bones and soft tissues demonstrate no acute finding. CONCLUSION: Stable chest x-ray with bibasilar opacities. These likely represent small pleural effusions with asso ciated atelectasis or consolidation. Jasper Goldsmith MD on January 08, 2017 at 14:35 Board Certified Radiologist. This report was verified electronically.
[2017-01-08] MEDS ORDERED: ALPRAZolam 1 MG TAB PO ONE (16:45)
[2017-01-08 21:09] LABS: MEAN CORPUSCULAR HGB CONC 29.9 % (32.0-36.0)
[2017-01-09] VITALS (25 sets, daily range): BP systolic 107–152; BP diastolic 74–103; PULSE 111–136; RESP 20–40; TEMP 97–99; O2SAT 90–98
[2017-01-09] MEDS: INSULIN NovoLIN REGULAR SUPPLEMENTAL SCALE SQ SCH ×4 (03:00→19:42)
[2017-01-09] MEDS: CHLORHEXIDINE GLUCONATE 2 % 1 PACK (2 CLOTHS) TOP SCH (03:25)
[2017-01-09] MEDS: AZITHROMYCIN INJ 500 MG in SODIUM CHLOR 0.9% 250 ML INJ 250 ML IV SCH (05:07)
[2017-01-09 05:56] LABS: HEMATOCRIT 31.9 % (35.0-46.0); MEAN CELL VOLUME 84.1 FL (80.0-100.0); MEAN CORPUSCULAR HEMOGLOBIN 25.1 PG (27.0-34.0); PLATELET COUNT 288 TH/MM3 (150-450); RED BLOOD COUNT 3.79 MIL/MM3 (4.00-5.30); RED CELL DISTRIBUTION WIDTH 21.9 % (11.6-17.2); WHITE BLOOD COUNT 14.4 TH/MM3 (4.0-11.0)
[2017-01-09 06:00] LABS: HEMO FLAGS AUTO DIFF
[2017-01-09 06:07] LABS: BICARBONATE 27.1 MEQ/L (21.0-32.0); POTASSIUM 4.5 MEQ/L (3.5-5.1)
[2017-01-09] MEDS: RESP: ALBUTEROL 2.5 MG/IPRATROPIUM 0.5 MG NEB (SCH) INH ×4 (07:33→20:17)
[2017-01-09] MEDS: FAMOTIDINE 20 MG/2 ML VIAL IV PUSH SCH ×2 (07:38→19:53)
[2017-01-09] MEDS: amLODIPine BESYLATE 5 MG TAB PO SCH (07:38)
[2017-01-09] MEDS: predniSONE 20 MG TAB PO SCH (07:38)
[2017-01-09] MEDS: APIXABAN 5 MG TABLET PO SCH ×2 (07:38→19:41)
[2017-01-09] MEDS: METOPROLOL TARTRATE 50 MG TAB PO SCH ×2 (07:39→19:41)
[2017-01-09 08:05] LABS: ACANTHOCYTES OCC (NORMAL); KERATOCYTES OCC (NORMAL); NEUTROPHIL # MANUAL DIFF 12.2 TH/MM3 (1.8-7.7); OVALOCYTES 1+ (NORMAL); PLATELET ESTIMATE SMEAR NORMAL (NORMAL); PLATELET MORPHOLOGY ENLARGED (NORMAL); POLYS (SEG NEUTROPHILS) 85 % (16-70); WBC DIFF SAMPLE 100
[2017-01-09 08:06] LABS: SCAN/DIFF FINAL DIFF MANUAL
--- NOTE | 2017-01-09 13:07 | HHI.PR ---
Subjective Remarks Follow-up Acute hypoxemic and hypercapnic respiratory failure/COPD exacerbation 01/07/17- patient seen and examined, currently on 5 L nasal cannula oxygen and patient tires easily. Early this morning secondary to work of breathing she has to be put back on BiPAP and patient states she no longer want any heroic measure. States, her will bring her living will. Currently afebrile 01/08/17-patient seen and examined, although with some shortness of breath however denies any. Complains of lower extremities pain. Patient is now DO NOT RESUSCITATE 01/09/17-patient seen and examined, alert however with some confusions only oriented to self placed and year. On BiPAP on and off as patient difficult to stick with it Objective Vitals Vital Signs Date Time Temp Pulse Resp B/P Pulse Ox O2 Delivery O2 Flow Rate FiO2 01/09/17 12:00 97.0 119 34 144/86 96 01/09/17 12:00 119 01/09/17 10:00 125 01/09/17 08:00 97.6 127 32 132/79 93 01/09/17 08:00 127 01/09/17 07:36 96 Nasal Cannula 4.00 01/09/17 07:00 96 Nasal Cannula 4.00 01/09/17 06:00 122 01/09/17 04:00 98.2 131 32 148/95 97 01/09/17 04:00 131 01/09/17 02:00 132 01/09/17 00:00 113 01/09/17 00:00 98.5 113 32 119/85 94 01/08/17 23:45 100 50 01/08/17 22:00 122 01/08/17 21:36 98 50 01/08/17 20:00 98.3 77 26 172/85 100 01/08/17 20:00 77 01/08/17 19:53 98 Nasal Cannula 4.00 01/08/17 19:00 97 Nasal Cannula 3.00 01/08/17 18:00 77 01/08/17 18:00 77 32 159/77 98 01/08/17 17:00 74 28 153/75 94 01/08/17 16:00 72 23 163/79 100 01/08/17 16:00 77 01/08/17 16:00 98.0 78 20 163/70 96 01/08/17 15:00 73 28 163/82 100 01/08/17 14:00 73 01/08/17 14:00 71 27 153/75 100 01/08/17 13:29 99 60 I/O 01/08/17 01/08/17 01/08/17 01/09/17 01/09/17 01/09/17 07:00 15:00 23:00 07:00 15:00 23:00 Intake Total 300 ml 380 ml 75 ml 250 ml Output Total 275 ml 350 ml 300 ml 400 ml Balance 25 ml 30 ml -225 ml -150 ml Intake Oral 50 ml 300 ml 75 ml IV Total 250 ml 80 ml 250 ml Output Urine Total 275 ml 350 ml 300 ml 400 ml # Bowel Movements 1 Result Diagram: 01/09/1752401/09/17524 Objective Remarks GENERAL: NAD however tires easily when talking SKIN: Warm and dry. HEAD: Normocephalic. EYES: No scleral icterus. No injection or drainage. NECK: Supple, trachea midline. No JVD or lymphadenopathy. CARDIOVASCULAR: irreg Regular rate and rhythm without murmurs, gallops, or rubs. RESPIRATORY: Breath sounds decreased bilaterally. No accessory muscle use. GASTROINTESTINAL: Abdomen soft, non-tender, nondistended. MUSCULOSKELETAL: No cyanosis; +1BLE edema. BACK: Nontender without obvious deformity. No CVA tenderness. A/P Problem List: (1) COPD exacerbation ICD Code: J44.1 Status: Acute (2) Acute respiratory failure with hypercapnia ICD Code: J96.02 Status: Acute (3) Acute respiratory failure with hypoxemia ICD Code: J96.01 Status: Acute Assessment and Plan 71 year-old female with 1. Acute hypoxemic and hypercapnic respiratory failure. Self extubated night of 01/05 Continue with oxygen and maintain sats above 92%,Bronchodilators, prednisone 20 mg daily, Incentive spirometry, Pulm is following- Dr. Chavez, BiPAP when necessary. 2. COPD exacerbation. Continue with oxygen and maintain sats above 92%,Bronchodilators, azithromycin, prednisone 20 mg daily. daily, Incentive spirometry, Pulm ff, 3. Bibasilar mixed interstitial and alveolar process. s/p aztreonam and continue azithromycin. Monitor for signs of infections( fever and WBC). Nasal aspirate is negative for influenza. 01/02 sputum culture NTD Strep pneumonia and Legionella urinary antigen negative. 4. Paroxysmal atrial fibrillation On Lopressor 50mg BID and Eliquis. 5. Diabetes mellitus. On medium ISS, continue to hold Levemir 15 units Q12 6. Hypertension. On Lopressor 50mg BID and Norvasc 7. Hyperlipidemia. 8. Leukocytosis-likely secondary to steroid and monitor CBC 9. Anemia of chronic kidney disease: Continue to monitor H&H 10. Acute kidney injury-improving 11. Mild elevation in troponin. Echo from November showed EF of 60-65% , no RWMA and pulmonary hypertension with a PA pressure of 59 mmHg. GI prophylaxis with Pepcid 10 mg IV q. 12 and DVT prophylaxis with SCDs and Eliquis 5 mg p.o. b.i.d. DO NOT RESUSCITATE Transfer to CICU Reid Azar MD January 09, 2017 13:07
[2017-01-09] MEDS: hydrALAZINE HCL 20 MG/ML VIAL IV PUSH PRN (15:03)
[2017-01-09] MEDS ORDERED: DILTIAZEM HCL 25 MG/5 ML VIAL ONE (16:34)
[2017-01-09] MEDS ORDERED: DILTIAZEM HCL 25 MG/5 ML VIAL IV ONE (16:45)
--- NOTE | 2017-01-09 18:42 | HHI.PR ---
Subjective Remarks Doing well. Now on a Venti mask and FIO2 50 %. Eating a soft diet. Output was good. Objective Vital Signs Date Time Temp Pulse Resp B/P Pulse Ox O2 Delivery O2 Flow Rate FiO2 01/09/17 18:00 131 01/09/17 18:00 131 34 107/77 92 01/09/17 17:01 127 33 143/96 94 01/09/17 17:00 136 29 94 01/09/17 16:00 132 01/09/17 16:00 98.0 132 36 145/96 96 01/09/17 16:00 132 36 145/96 96 01/09/17 15:47 132 37 118/82 98 01/09/17 15:00 122 33 147/103 94 01/09/17 14:32 119 39 152/103 94 01/09/17 14:00 122 01/09/17 14:00 122 37 130/101 95 01/09/17 13:00 126 40 143/95 91 01/09/17 12:00 97.0 119 34 144/86 96 01/09/17 12:00 119 01/09/17 12:00 119 34 144/86 96 01/09/17 11:00 123 32 130/85 96 01/09/17 10:00 125 34 145/85 90 01/09/17 10:00 125 01/09/17 09:00 119 30 113/74 92 01/09/17 08:47 121 32 132/79 94 01/09/17 08:00 127 32 93 01/09/17 08:00 97.6 127 32 132/79 93 01/09/17 08:00 127 01/09/17 07:36 96 Nasal Cannula 4.00 01/09/17 07:00 96 Nasal Cannula 4.00 01/09/17 06:00 122 01/09/17 04:00 98.2 131 32 148/95 97 01/09/17 04:00 131 01/09/17 02:00 132 01/09/17 00:00 113 01/09/17 00:00 98.5 113 32 119/85 94 01/08/17 23:45 100 50 01/08/17 22:00 122 01/08/17 21:36 98 50 01/08/17 20:00 98.3 77 26 172/85 100 01/08/17 20:00 77 01/08/17 19:53 98 Nasal Cannula 4.00 01/08/17 19:00 97 Nasal Cannula 3.00 I/O 01/08/17 01/08/17 01/08/17 01/09/17 01/09/17 01/09/17 07:00 15:00 23:00 07:00 15:00 23:00 Intake Total 300 ml 380 ml 75 ml 250 ml 500 ml Output Total 275 ml 350 ml 300 ml 400 ml 300 ml Balance 25 ml 30 ml -225 ml -150 ml 200 ml Intake Oral 50 ml 300 ml 75 ml 500 ml IV Total 250 ml 80 ml 250 ml Output Urine Total 275 ml 350 ml 300 ml 400 ml 300 ml # Bowel Movements 1 Result Diagram: 01/09/1752401/09/17524 Objective Remarks GENERAL: This is an averagely built elderly lady who is awake and in no distress HEENT: Head normocephalic. Pupils are reactive. Throat was clear. Ears no inflammation. NECK: Supple. No bruits or thyroid enlargement. CHEST: Distant breath sounds with occasional expiratory wheezes bilaterally. Bibasilar crackles are heard. HEART: Heart sounds are irregularly irregular, S1-S2 with no murmur. No S3. ABDOMEN: Abdomen is soft, benign. No masses, no organomegaly or tenderness. Bowel sounds are active. EXTREMITIES: 1 + edema. Peripheral pulses are diminished. NEUROLOGIC: Reflexes are 1+. No focal deficit. Babinski negative. RECTAL: Exam is deferred. SKIN: Dry and warm. Assessment and Plan Assessment and Plan IMPRESSION 1. Acute hypercapnic respiratory failure. 2. Basilar pneumonia with possible mild pulmonary edema. 3. COPD with acute exacerbation 4. Diabetes mellitus 5. Hypertension and hyperlipidemia 6. Acute kidney injury. Plan : 1. Continue ventimask at 50 % and wean to N/C 5 L 2. Continue Epixaban 3. Nebs qid , Duoneb. 4. Continue antibioitcs. and switch to PO. 5. Prednisone 20 mg daily. 6. CBC ,BMP in am Bessie Chavez MD January 09, 2017 18:42
[2017-01-10] VITALS (20 sets, daily range): BP systolic 131–139; BP diastolic 89–98; PULSE 110–135; RESP 20–30; TEMP 97.9–99.2; O2SAT 92–100
[2017-01-10] MEDS: INSULIN NovoLIN REGULAR SUPPLEMENTAL SCALE SQ SCH ×3 (03:43→15:41)
[2017-01-10] MEDS: CHLORHEXIDINE GLUCONATE 2 % 1 PACK (2 CLOTHS) TOP SCH (04:00)
[2017-01-10] MEDS ORDERED: DILTIAZEM HCL 25 MG/5 ML VIAL IV ONE (04:30)
[2017-01-10] MEDS: RESP: ALBUTEROL 2.5 MG/IPRATROPIUM 0.5 MG NEB (SCH) INH ×3 (08:34→15:46)
[2017-01-10] MEDS: METOPROLOL TARTRATE 50 MG TAB PO SCH (08:37)
[2017-01-10] MEDS: APIXABAN 5 MG TABLET PO SCH (08:38)
[2017-01-10] MEDS: amLODIPine BESYLATE 5 MG TAB PO SCH (08:38)
[2017-01-10] MEDS: FAMOTIDINE 20 MG/2 ML VIAL IV PUSH SCH (08:40)
[2017-01-10] MEDS: predniSONE 20 MG TAB PO SCH (08:41)
[2017-01-10] MEDS ORDERED: AZITHROMYCIN 250 MG TAB PO SCH (09:00)
[2017-01-10] MEDS ORDERED: DILTIAZEM HCL 25 MG/5 ML VIAL IVP ONE (12:30)
--- NOTE | 2017-01-10 12:33 | HHI.PR ---
Subjective Remarks Follow-up Acute hypoxemic and hypercapnic respiratory failure/COPD exacerbation 01/07/17- patient seen and examined, currently on 5 L nasal cannula oxygen and patient tires easily. Early this morning secondary to work of breathing she has to be put back on BiPAP and patient states she no longer want any heroic measure. States, her will bring her living will. Currently afebrile 01/08/17-patient seen and examined, although with some shortness of breath however denies any. Complains of lower extremities pain. Patient is now DO NOT RESUSCITATE 01/09/17-patient seen and examined, alert however with some confusions only oriented to self placed and year. On BiPAP on and off as patient difficult to stick with it 01/10/17-patient seen and examined ; increasing shortness of breath with expiratory wheezing. HR up. Although alert but increasing confusion. Patient states she will consider Hospice Objective Vitals Vital Signs Date Time Temp Pulse Resp B/P Pulse Ox O2 Delivery O2 Flow Rate FiO2 01/10/17 11:00 124 01/10/17 11:00 97.9 126 30 131/93 98 01/10/17 11:00 98 Nasal Cannula 4.00 01/10/17 10:00 120 01/10/17 09:00 126 01/10/17 08:37 98 Nasal Cannula 2.00 01/10/17 08:21 98.8 135 20 133/89 100 01/10/17 08:00 98 Nasal Cannula 4.00 Humidified 01/10/17 08:00 124 01/10/17 07:00 100 Nasal Cannula 4.00 01/10/17 07:00 120 01/10/17 06:00 121 01/10/17 05:00 130 01/10/17 04:18 95 40 01/10/17 04:00 128 01/10/17 03:00 99.2 117 22 137/98 94 01/10/17 03:00 97 Bi-Pap 40 01/10/17 03:00 124 01/10/17 02:00 114 01/10/17 01:00 110 01/10/17 00:00 119 01/09/17 23:30 99.0 111 20 139/90 97 01/09/17 23:30 97 Nasal Cannula 4.00 01/09/17 23:00 113 01/09/17 22:00 112 01/09/17 22:00 91 Nasal Cannula 4.00 01/09/17 22:00 98.5 112 20 134/87 91 01/09/17 20:19 93 Nasal Cannula 4.00 01/09/17 20:00 98.5 128 26 152/77 91 01/09/17 20:00 128 01/09/17 19:00 92 Nasal Cannula 4.00 01/09/17 18:00 131 01/09/17 18:00 131 34 107/77 92 01/09/17 17:01 127 33 143/96 94 01/09/17 17:00 136 29 94 01/09/17 16:00 132 01/09/17 16:00 98.0 132 36 145/96 96 01/09/17 16:00 132 36 145/96 96 01/09/17 15:47 132 37 118/82 98 01/09/17 15:00 122 33 147/103 94 01/09/17 14:32 119 39 152/103 94 01/09/17 14:00 122 01/09/17 14:00 122 37 130/101 95 01/09/17 13:00 126 40 143/95 91 I/O 01/09/17 01/09/17 01/09/17 01/10/17 01/10/17 01/10/17 07:00 15:00 23:00 07:00 15:00 23:00 Intake Total 250 ml 500 ml 40 ml Output Total 400 ml 300 ml 450 ml Balance -150 ml 200 ml -410 ml Intake Oral 500 ml 40 ml IV Total 250 ml Output Urine Total 400 ml 300 ml 450 ml # Bowel Movements 0 Result Diagram: 01/09/17 0525 01/09/17 0525 Imaging Last Impressions Chest X-Ray 01/08/17 0000 Signed Impressions: Service Date/Time: Sunday, January 08, 2017 13:54 - CONCLUSION: Stable chest x- ray with bibasilar opacities. These likely represent small pleural effusions with associated atelectasis or consolidation. Jasper Goldsmith MD Renal Ultrasound 01/04/17 0000 Signed Impressions: Service Date/Time: December 11:21 - CONCLUSION: Unremarkable sonographic appearance of the kidneys Jasper Snyder MD Chest CT 01/02/17 0000 Signed Impressions: Service Date/Time: Monday, January 02, 2017 11:08 - CONCLUSION: 1. Examination quality degraded by respiratory motion artifact. There are small bilateral pleural effusions, right larger than left with associated compressive atelectasis along with consolidation in both lower lobes. 2. Stable mediastinal lymphadenopathy from uncertain etiology. 3. Stable enlargement of the upper pulmonary arteries which may indicate pulmonary tear hypertension. 4. One month stable 17 mm hyperdense left renal lesion. Suggest correlation with older examinations which could further characterize or document longer term stability. If none are available consider renal protocol CT or MRI when the patient's condition permits for a high quality exam. Jasper Goldsmith MD Objective Remarks GENERAL: NAD SKIN: Warm and dry. HEAD: Normocephalic. EYES: No scleral icterus. No injection or drainage. NECK: Supple, trachea midline. No JVD or lymphadenopathy. CARDIOVASCULAR: irreg Regular rate and rhythm without murmurs, gallops, or rubs. RESPIRATORY: Breath sounds decreased bilaterally. + accessory muscle use.+ Wheezing GASTROINTESTINAL: Abdomen soft, non-tender, nondistended. MUSCULOSKELETAL: No cyanosis; +1BLE edema. BACK: Nontender without obvious deformity. No CVA tenderness. A/P Problem List: (1) COPD exacerbation ICD Code: J44.1 Status: Acute (2) Acute respiratory failure with hypercapnia ICD Code: J96.02 Status: Acute (3) Acute respiratory failure with hypoxemia ICD Code: J96.01 Status: Acute (4) Atrial fibrillation ICD Code: I48.91 Status: Acute Assessment and Plan 71 year-old female with 1. Acute hypoxemic and hypercapnic respiratory failure. Self extubated night of 01/05 Continue with oxygen and maintain sats above 92%,Bronchodilators, prednisone 20 mg daily now however will switch to IV Solu Medrol, Incentive spirometry, Pulm is following- Dr. Chavez, BiPAP when necessary. 2. COPD exacerbation. Now looks End stage COPD with respiratory failure Continue with oxygen and maintain sats above 92%,Bronchodilators, azithromycin. Will d/c prednisone 20 mg daily and start Solu Medrol IV. daily, Incentive spirometry, Pulm ff, Repeat CXR 01/10 Will consult Hospice 01/10 3. Bibasilar mixed interstitial and alveolar process. s/p aztreonam and continue azithromycin. Monitor for signs of infections( fever and WBC). Nasal aspirate is negative for influenza. 01/02 sputum culture NTD Strep pneumonia and Legionella urinary antigen negative. 4. Paroxysmal atrial fibrillation On Lopressor 50mg BID and Eliquis. Now with RVR therefore will give Cardizem 15mg IV push now and consider Cardizem drip. she is s/p Cardizem IV 15mg x1 yesterday 01/09 5. Diabetes mellitus. On medium ISS, continue to hold Levemir 15 units Q12 6. Hypertension. On Lopressor 50mg BID and Norvasc 7. Hyperlipidemia. 8. Leukocytosis-likely secondary to steroid and monitor CBC 9. Anemia of chronic kidney disease: Continue to monitor H&H 10. Acute kidney injury-improving 11. Mild elevation in troponin. Echo from November showed EF of 60-65% , no RWMA and pulmonary hypertension with a PA pressure of 59 mmHg. GI prophylaxis with Pepcid 10 mg IV q. 12 and DVT prophylaxis with SCDs and Eliquis 5 mg p.o. b.i.d. DO NOT RESUSCITATE Reid Azar MD January 10, 2017 12:33
--- NOTE | 2017-01-10 13:34 | RADRPT ---
EXAM DATE/TIME: 01/10/2017 13:02 [facility] COMPARISON: CHEST SINGLE AP, January 08, 2017, 13:54. INDICATIONS : Short of breath. MEDICAL HISTORY : Congestive heart failure. Hypercholesterolemia. Emphysema. Glaucoma. Migraines. SURGICAL HISTORY : Tonsillectomy. Hysterectomy. Left cataract. Adenoidectomy. Colon resection. ENCOUNTER: Subsequent ACUITY: 1 week PAIN SCORE: 0/10 LOCATION: Bilateral chest FINDINGS: Heart is enlarged. Mild interstitial edema is present. Minimal bibasilar parenchymal changes are no jon. Overall compared to 01/08 there is somewhat better aeration with less interstitial edema. CONCLUSION: Interval improvement. Kam Arreguin MD FACR on January 10, 2017 at 13:30 Board Certified Radiologist. This report was verified electronically.
[2017-01-10] MEDS ORDERED: MAGNESIUM CITRATE SOLN 300 ML BTL PO ONE (14:45)
--- NOTE | 2017-01-10 15:45 | HHI.DS ---
Discharge Summary Admission Date January 02, 2017 at 05:43 Discharge Date: January 10, 2017 Admitting Diagnosis VDRF, COPD exacerbation (1) COPD exacerbation ICD Code: J44.1 (2) Acute respiratory failure with hypercapnia ICD Code: J96.02 (3) Acute respiratory failure with hypoxemia ICD Code: J96.01 (4) Atrial fibrillation ICD Code: I48.91 Procedures none Brief History - From Admission The patient is a 71-year-old female with a past medical history of hypertension, hyperlipidemia, diabetes mellitus, atrial fibrillation on Eliquis, COPD, who presented to [facility] ED via EMS with respiratory distress. The patient has been short of breath for the last several days. On EMS arrival she had a GCS score of 8 and she was subsequently intubated with etomidate and Ativan. ABG was performed post intubation which showed acute hypercapnic respiratory failure with a pH of 7.31, CO2 51, pAO2 260, bicarb 25, saturation of 98%. Her laboratory data is significant for leukocytosis with a WBC of 14.1, acute kidney injury with a creatinine level of 1.52 and estimated GFR 41. Her lactic acid level measured at 1.5. Chest x-ray showed interval development of bibasilar mixed interstitial and alveolar process. When seen the patient is intubated and sedated with Diprivan. The patient was placed on broad-spectrum antibiotics. CBC/BMP: 01/09/17 0525 01/09/17 0525 Significant Findings Laboratory Tests Test 01/08/17 01/09/17 05:09 05:25 White Blood Count 13.1 TH/MM3 14.4 TH/MM3 (4.0-11.0) (4.0-11.0) Red Blood Count 3.90 MIL/MM3 3.79 MIL/MM3 (4.00-5.30) (4.00-5.30) Hemoglobin 10.0 GM/DL 9.5 GM/DL (11.6-15.3) (11.6-15.3) Hematocrit 32.8 % 31.9 % (35.0-46.0) (35.0-46.0) Mean Corpuscular Hemoglobin 25.7 PG 25.1 PG (27.0-34.0) (27.0-34.0) Mean Corpuscular Hemoglobin 30.6 % 29.9 % Concent (32.0-36.0) (32.0-36.0) Red Cell Distribution Width 22.0 % 21.9 % (11.6-17.2) (11.6-17.2) Neutrophils % (Manual) 85 % (16-70) 85 % (16-70) Lymphocytes % 7 % (9-44) 7 % (9-44) Neutrophils # (Manual) 11.1 TH/MM3 12.2 TH/MM3 (1.8-7.7) (1.8-7.7) Nucleated Red Blood Cells 1 /100 WBC (0-0) Acanthocytes OCC (NORMAL) OCC (NORMAL) Keratocytes OCC (NORMAL) OCC (NORMAL) Sodium Level 146 MEQ/L 148 MEQ/L (136-145) (136-145) Chloride Level 113 MEQ/L 113 MEQ/L (98-107) (98-107) Blood Urea Nitrogen 49 MG/DL (7-18) 48 MG/DL (7-18) Creatinine 1.34 MG/DL 1.24 MG/DL (0.50-1.00) (0.50-1.00) Estimat Glomerular Filtration 47 ML/MIN (>89) 51 ML/MIN (>89) Rate Random Glucose 180 MG/DL 163 MG/DL (74-106) (74-106) Platelet Morphology Comment ENLARGED (NORMAL) Ovalocytes 1+ (NORMAL) Imaging Last Impressions Chest X-Ray 01/08/17 0000 Signed Impressions: Service Date/Time: Sunday, January 08, 2017 13:54 - CONCLUSION: Stable chest x- ray with bibasilar opacities. These likely represent small pleural effusions with associated atelectasis or consolidation. Jasper Goldsmith MD Renal Ultrasound 01/04/17 0000 Signed Impressions: Service Date/Time: December 11:21 - CONCLUSION: Unremarkable sonographic appearance of the kidneys Jasper Snyder MD Chest CT 01/02/17 0000 Signed Impressions: Service Date/Time: Monday, January 02, 2017 11:08 - CONCLUSION: 1. Examination quality degraded by respiratory motion artifact. There are small bilateral pleural effusions, right larger than left with associated compressive atelectasis along with consolidation in both lower lobes. 2. Stable mediastinal lymphadenopathy from uncertain etiology. 3. Stable enlargement of the upper pulmonary arteries which may indicate pulmonary tear hypertension. 4. One month stable 17 mm hyperdense left renal lesion. Suggest correlation with older examinations which could further characterize or document longer term stability. If none are available consider renal protocol CT or MRI when the patient's condition permits for a high quality exam. Jasper Goldsmith MD PE at Discharge GENERAL: NAD SKIN: Warm and dry. HEAD: Normocephalic. EYES: No scleral icterus. No injection or drainage. NECK: Supple, trachea midline. No JVD or lymphadenopathy. CARDIOVASCULAR: irreg Regular rate and rhythm without murmurs, gallops, or rubs. RESPIRATORY: Breath sounds decreased bilaterally. + accessory muscle use.+ Wheezing GASTROINTESTINAL: Abdomen soft, non-tender, nondistended. MUSCULOSKELETAL: No cyanosis; +1BLE edema. BACK: Nontender without obvious deformity. No CVA tenderness. Hospital Course 1. Acute hypoxemic and hypercapnic respiratory failure. Self extubated night of 01/05 Continue with oxygen and maintain sats above 92%,Bronchodilators, prednisone 20 mg daily now however will switch to IV Solu Medrol, Incentive spirometry, Pulm is following- Dr. Chavez, BiPBRANNON when necessary. 2. COPD exacerbation. Now looks End stage COPD with respiratory failure Continue with oxygen and maintain sats above 92%,Bronchodilators, azithromycin. Will d/c prednisone 20 mg daily and start Solu Medrol IV. daily, Incentive spirometry, Pulm ff, Repeat CXR 01/10 Will consult Hospice 01/10 3. Bibasilar mixed interstitial and alveolar process. s/p aztreonam and continue azithromycin. Monitor for signs of infections( fever and WBC). Nasal aspirate is negative for influenza. 01/02 sputum culture NTD Strep pneumonia and Legionella urinary antigen negative. 4. Paroxysmal atrial fibrillation On Lopressor 50mg BID and Eliquis. Now with RVR therefore will give Cardizem 15mg IV push now and consider Cardizem drip. she is s/p Cardizem IV 15mg x1 yesterday 01/09 5. Diabetes mellitus. On medium ISS, continue to hold Levemir 15 units Q12 6. Hypertension. On Lopressor 50mg BID and Norvasc 7. Hyperlipidemia. 8. Leukocytosis-likely secondary to steroid and monitor CBC 9. Anemia of chronic kidney disease: Continue to monitor H&H 10. Acute kidney injury-improving 11. Mild elevation in troponin. Echo from November showed EF of 60-65% , no RWMA and pulmonary hypertension with a PA pressure of 59 mmHg. GI prophylaxis with Pepcid 10 mg IV q. 12 and DVT prophylaxis with SCDs and Eliquis 5 mg p.o. b.i.d. Pt Condition on Discharge: Deteriorating Discharge Disposition: Hospice/Med Facility Discharge Time: > 30 minutes Discharge Instructions DIET: Follow Instructions for: Heart Healthy Diet Speech Therapy-Diet Recommends: Mechanical Soft Activities you can perform: Regular-No Restrictions Reid Azar MD January 10, 2017 15:45
[2017-01-10] MEDS ORDERED: methylPREDNISolone SOD SUCC 40 MG/1 ML VIAL IV PUSH SCH (21:00)
== END 2017-01-10 16:35 | disposition hospice, inpatient (51) | DRG 208 ==
LOC: NEPE 04:13 → NEDA 05:43 → HIMN 06:35 → HCIN 01-09 22:07
PROVIDERS: ADMIT Hospitalist; ATTEND Hospitalist
PROC: 5A1945Z Respiratory Ventilation, 24-96 Consecutive Hours (ICD-10-PCS; principal; 2017-01-02)
DX: J96.01 Acute respiratory failure with hypoxia (principal); N17.9 Acute kidney failure, unspecified; J18.9 Pneumonia, unspecified organism; I48.0 Paroxysmal atrial fibrillation; E11.22 Type 2 diabetes mellitus with diabetic chronic kidney disease; Z99.81 Dependence on supplemental oxygen; I48.2 Chronic atrial fibrillation; J44.0 Chronic obstructive pulmonary disease with (acute) lower respiratory infection; J44.1 Chronic obstructive pulmonary disease with (acute) exacerbation; E11.9 Type 2 diabetes mellitus without complications; D63.1 Anemia in chronic kidney disease; J96.02 Acute respiratory failure with hypercapnia; I12.9 Hypertensive chronic kidney disease with stage 1 through stage 4 chronic kidney disease, or unspecified chronic kidney disease; E78.5 Hyperlipidemia, unspecified; N18.9 Chronic kidney disease, unspecified; K21.9 Gastro-esophageal reflux disease without esophagitis; H40.9 Unspecified glaucoma; M19.90 Unspecified osteoarthritis, unspecified site; T38.0X5A Adverse effect of glucocorticoids and synthetic analogues, initial encounter; F17.200 Nicotine dependence, unspecified, uncomplicated; Z66 Do not resuscitate; Z79.01 Long term (current) use of anticoagulants; Z79.4 Long term (current) use of insulin; Z85.038 Personal history of other malignant neoplasm of large intestine; Z88.0 Allergy status to penicillin; Z90.49 Acquired absence of other specified parts of digestive tract
CPT/HCPCS: 36600; 51702; 71010; 71250; 76775; 80048; 80053; 81001; 82550; 82805; 82948; 83605; 83690; 83735; 84100; 84484; 85007; 85025; 85027; 85610; 85730; 87040; 87070; 87205; 87449; 87641; 87804; 93005; 94002; 94003; 94150; 94640; 94664; 94770; 96365; 96374; 96375; J0360; J0456; J2405; J2920; J3370; J3475; J7030; J7050; J7120; J7512